=== PATIENT | male | born 1960 | race Caucasian/White ===

== ENCOUNTER 2016-08-13 21:16 | Emergency (ER) | payer MEDICARE, MEDICAID, OTHER ==
[~2016-08-13 21:16] MED LIST: /ADVA50050 IN; /ATOR40TA PO; /CIPR75TA OR; /OMEP10CA; /PANT40TA; /SALMDISK IN; ADVA115A INH; ADVAIR500 INHALATION; ALBU83IN IN; ALBU83IN INH; ALBUTEROL INHALATION; ALCOHOL TOP; ALDACTON50 PO; ALLO10TA PO; ALTACE10 PO; ASPI325T PO; ASPI32ECTA PO; ATOR40TA PO; AVANDIA4 PO; AVOD0.5C OR; AVOD0.5C PO; BACTRIMDS PO; CALC0.5C PO; CALC1CAP31 PO; CAPOTEN PO; CARV12.5 PO; CARV25TA OR; CARV6.25 PO; CINA30TA PO; CIPR500T19 OR; COLA100C PO; COMBIVENT PO; DEPAKOT500 PO; DEXI60CA PO; DOCU100C PO; DYNACIRC PO; ELID1CRE10 TOP; FEBU40TA PO; FERR325T PO; FERR325T3 PO; FLOM5CAP PO; FURO40TA2 OR; FURO80TA2 OR; GLUC1000 PO; GLUC1KIT INJ; GLUC5TAB PO; GLUCOP1000 PO; GLUCULTRA TOPICAL; HEPA100PFS INJ; HUMA100I5 SC; HUMA50IN4 SC; HUMALOG SQ; HYDR-3565 PO; HYDR25TA6; Hydrocodone PO; INSUHUMDS SC; IPRA2IN INH; IPRASOL4 INH; IRON28TA OR; ISOS30BRAN; Januvia PO; KEFLEX250 PO; KEPP250T5 PO; KLONOPIN PO; LACHYDRIN TOP; LANCMIS; LANTINJ4 SC; LASIX20 PO; LASIX40 PO; LIPITOR40 PO; LOPR100T; LOPRESS100 PO; LOPRESS50 PO; LORTAB10 PO; LOTRISCREA TOPICALLY; LYRI100C10 PO; MAGN400T5 PO; MAGN500T2 OR; METFORM500 PO; METO25TA PO; MULTIVIT PO; NICO21DI4; NITR0.4S SL; NITR4TASL SL; NITROSTAT4 SL; NORC10TA2 PO; NORV5TAB; OMEP20TA7 OR; OXYB5TA PO; OXYB5TAB PO; PLAV75TA2; PLAVIX75 PO; PLENDIL10 PO; POTA99TA OR; PREDNISO20 PO; PREDTAP PO; PRILOSEC20 PO; PRIN20TA3; PROA1AER INH; PULM0.5S INH; SALI0.9I2 IV; SOMA350 PO; SOMA350T PO; SPIR25TA2 PO; SYR.5; TORS100T12 PO; TORS20TA2 PO; TOUJ1.2I SC; TRIAMCIN TOPICAL; TYLE1TAB5 PO; ULOR80TA PO; VENTAER IN; VICODIN10 PO; VITMTA PO; Victoza SC; ZOCOR40 PO; ZOCOR80 PO; ZOFR20TA PO; ZOFR4TAB3 PO; ZOSY2INJ2 IV; [UNRECOGNIZED DRUG - CODE] PO; [UNRECOGNIZED DRUG - CODE] PO; [UNRECOGNIZED DRUG - CODE] PO; [UNRECOGNIZED DRUG - OTHER]; [UNRECOGNIZED DRUG - OTHER]; [UNRECOGNIZED DRUG - OTHER] SQ; mycostatin powder TOP
[2016-08-13 22:01] LABS: CALCIUM LEVEL 8.4 MG/DL (8.5-10.1); CREATININE FOR GFR 2.94 MG/DL (0.70-1.30); GLOMERULAR FILTRATION RATE 23.5 (>56); MEAN CORPUSCULAR HEMOGLOBIN 31.8 pg (27.0-33.0); MEAN CORPUSCULAR HGB CONC 33.1 g/dl (32.0-36.5); MEAN CORPUSCULAR VOLUME 96.2 fl (80.0-96.0); POTASSIUM SERUM 4.2 MEQ/L (3.5-5.1); WHITE BLOOD COUNT 5.4 K/mm3 (4.0-10.0)
--- NOTE | 2016-08-13 23:50 | REPUSA ---
CLINICAL HISTORY: Seizure TECHNIQUE: Head CT without contrast COMPARISON: November 29, 2015. Brain: No intracranial hemorrhage, hydrocephalus, acute parenchymal edema or evident mass. Calvarium: Unremarkable. Sinuses (partially visualized): Clear. Orbits: Left phthisis bulbi. IMPRESSION: No acute intracranial findings.
--- NOTE | 2016-08-14 00:10 | EDDOCDS ---
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 Pt. does not know why he was in the sleep lab and is unable to provide a medical history at this time. Adult Sepsis Screening: Patient has new or worsening altered mentation (1 point). Patient's respiratory rate is less than 22. Systolic blood pressure is greater than 100. Patient has a qSOFA score of 1- Negative Sepsis Screen. Suicide/Homicide risk assessment- Unable to assess, the patient has an altered level of consciousness. 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 Transition of care: patient was received from Sleep Lab at [facility]. 21:21 Acuity: YOHANA Level 3 lf1 21:21 Method Of Arrival: Wheelchair lf1 Triage Assessment: 21:45 General: Appears obese, uncomfortable, Behavior is drowsy. Pain: Location: right leg lf1 and left leg Pain currently is 6 out of 10 on a pain scale. HIV screening NA for this visit Offered previously. Neurological: Level of Consciousness is awake, confused, Reports headache. Respiratory: Respiratory effort is even, unlabored, Breath sounds are diminished Reports shortness of breath. GI: Abdomen is obese. Derm: Rash noted that is red, LE swelling and discoloration, BL UE with multiple areas of red ring-like rashes. Historical: - Allergies: butran patch (Rash); Toradol (hallucinations); - Home Meds: 1. aspirin 81 mg oral tab (Last dose: Unknown) 2. metformin 1,000 mg Oral tab 1 tab 2 times per day (Last dose: Unknown) 3. metoprolol tartrate 150 mg 1.5 tabs Oral tab 2 times per day (Last dose: Unknown) 4. atorvastatin 40 mg oral tab 1 tab once daily (Last dose: Unknown) 5. clopidogrel 75 mg oral tab 1 tab once daily (Last dose: Unknown) 6. pregabalin 150 mg oral cap 2 times per day (Last dose: Unknown) 7. lisinopril 20 mg Oral tab twice a day (Last dose: Unknown) 8. Protonix 40 mg Oral TbEC 1 tab once daily (Last dose: Unknown) 9. Lasix 20 mg Oral tab 1 tab once daily (Last dose: Unknown) 10. Novolog 100 unit/mL Sub-Q soln 85 units am / 85 units pm 11. multivitamin Oral tab 1 tab daily (Last dose: Unknown) 12. Avodart 0.5 mg oral cap 1 cap once daily (Last dose: Unknown) 13. torsemide 20 mg oral tab 2 tabs bid (Last dose: Unknown) 14. magnesium oxide 400 mg Oral tab 400 mg three times a day 15. ferrous sulfate 325 mg (65 mg iron) Oral tab twice a day (Last dose: Unknown) 16. spironolactone 25 mg Oral tab 1 tab 2 times per day (Last dose: Unknown) 17. docusate sodium 100 mg Oral cap as needed (Last dose: Unknown) 18. Nitrostat 0.4 mg SL subl as needed (Last dose: Unknown) 19. calcitriol 0.25 mcg oral cap 2 caps once daily 20. Flomax 0.4 mg Oral cp24 1 cap once daily (Last dose: Unknown) 21. Humalog Pen 180 units subq 4 times a day Sub-Q Unknown before meals sliding scale. 22. Dexilant 60 mg oral CpDB 1 cap once daily (Last dose: Unknown) 23. Lipitor 40 mg Oral tab 1 tab once daily 24. proair HFA 2 puffs every 4 hours as needed for SOB 25. carvedilol 6.25 mg oral tab 1 tab 2 times per day (Last dose: Unknown) 26. oxybutynin chloride 15 mg Oral tab 1 tab daily (Last dose: Unknown) 27. hydrocodone-acetaminophen 10-325 mg Oral tab 1 tab every 4-6 hours 28. pregabalin 100 mg Oral cap 1 cap 2 times per day (Last dose: Unknown) 29. Uloric 40 mg oral tab 1 tab once daily 30. Sensipar 30 mg oral tab 1 tab three times per week [place], wed, monday 31. potassium chloride 10 mEq Oral cpER 1 cap once daily 32. triamcinalone topical - PMHx: CHF; COPD; Diabetic Neuropathy; Glaucoma; Gout; Hypertension; kidney diseasestage 4; [place]; MRSA; secondary hyperparathyroidism of renal origin; Stroke; Pseudoseizures; Sleep Apnea w/o CPAP; - PSHx: inguinal hernia repair; Stents, Coronary; defibrillator; quadruple bypass; titanium plates in neck; umbilical hernia repair; - The history from nurses notes was reviewed: and elements of the historical information I have obtained differs from that reported to nursing. - Social history: Smoking status: Patient states former smoker of tobacco. Preferred Language: Dominican. - : The pt / caregiver states he / she is on anticoagulants: Plavix. Home medication list is obtained from [employer] import data, the facility OCT. - Hospitalizations: : No recent hospitalization is reported. - Exposure Risk Screening:: None identified. - Immunization history:: All immunizations up-to-date. - Family history: Not pertinent. - Social history:: the patient is a former smoker, the patient does not drink alcohol. Screenin:30 Screening information is obtained from family members. Fall risk: At risk due to lf1 immobility, The following interventions are performed due to a positive Fall Risk Screen: Fall Risk is added to Special Handling on the patient Summary Screen. A Fall Risk Bracelet was applied to the patient. Side Rails are placed in the up position. A Call Park is given with instruction to call for help when getting out of bed. Fall Alert bracelet is placed on the patient. Assistance ADL's: Requires assistance with meal preparation, this assistance is provided by family members, bathing, assistance is provided by family members, dressing, assistance is provided by family members, toileting, assistance is provided by family members, Pt also goes to adult daycare. Abuse/DV Screen: The patient / caregiver reports he/she is: not in a situation that causes fear, pain or injury. Nutritional screening: No deficits noted. Advance Directives: Currently, there is a health care proxy, Odilia Nick [phone]. There is an active DNR order but there is no copy available at this time. home support is adequate. Assessment: 22:30 Adult Sepsis Screening: Patient has new or worsening altered mentation (1 point). lf1 Patient's respiratory rate is less than 22. Systolic blood pressure is greater than 100. Patient has a qSOFA score of 1- Negative Sepsis Screen. General: Appears obese, uncomfortable, Behavior is anxious, restless. Pain: Location: right leg and left leg Pain currently is 10 out of 10 on a pain scale. Quality of pain is described as sharp, shooting, Pain began chronic. Neurological: Level of Consciousness is awake, alert, Oriented to person, place, time. EENT: No deficits noted. Cardiovascular: Chest pain is denied. Respiratory: Respiratory effort is even, unlabored. GI: Abdomen is obese. Derm: Rash noted that is red, on right arm and left arm. 23:10 General: Appears in no apparent distress. Pain: Location: right leg and left leg Pain lf1 currently is 10 out of 10 on a pain scale. Neurological: Level of Consciousness is awake, alert. Respiratory: Respiratory effort is even, unlabored. GI: Abdomen is obese. 08/14 00:06 General: Appears in no apparent distress, comfortable, obese, Behavior is cooperative. lf1 Pain: Location: left leg and right leg Pain currently is 10 out of 10 on a pain scale. Pain began chronic. Neurological: Level of Consciousness is awake, alert, Oriented to person, place, time. Cardiovascular: Chest pain is denied. Respiratory: Respiratory effort is even, unlabored. : No deficits noted. Derm: Rash noted that is red, on right arm and left arm. Vital Signs: 08/13 21:20 BP 133 / 74 (auto/); lf1 21:21 Pulse 81 MON; lf1 21:35 BP 133 / 74; Pulse 76; Resp 18; Temp 97.9(O); Pulse Ox 96% on R/A; Pain 0/10; lf1 21:36 Weight 150.14 kg; Height 5 ft. 10 in. (177.80 cm); cp1 21:38 BP 121 / 68 (auto/); lf1 21:38 Pulse 81 MON; Pulse Ox 90% ; lf1 21:45 BP 128 / 65 (auto/); lf1 21:46 Pulse 77 MON; Pulse Ox 96% ; lf1 22:00 BP 125 / 62 (auto/); lf1 22:01 Pulse 75 MON; Pulse Ox 96% ; lf1 22:15 BP 117 / 59 (auto/); lf1 22:16 Pulse 77 MON; Pulse Ox 96% ; lf1 22:30 BP 124 / 63 (auto/); lf1 22:30 Pulse 84 MON; Resp 20; Pulse Ox 95% ; Pain 10/10; lf1 22:48 BP 136 / 88 (auto/); lf1 22:49 Pulse 79 MON; lf1 23:03 BP 113 / 56 (auto/); lf1 23:03 Pulse 81 MON; lf1 23:18 BP 127 / 81 (auto/); lf1 23:18 Pulse 68 MON; lf1 23:33 BP 110 / 57 (auto/); lf1 23:33 Pulse 81 MON; lf1 23:48 BP 108 / 71 (auto/); lf1 23:49 Pulse 82 MON; lf1 23:57 BP 118 / 62 (auto/); lf1 23:58 Pulse 82 MON; Resp 20; Temp 97.1(O); lf1 21:36 Body Mass Index 47.49 (150.14 kg, 177.80 cm) cp1 Vitals: 21:35 Log In Time: August 13, 2016 at 21:25. lf1 ED Course: 21:17 Patient visited by Kim Loredo, Track Repair Worker. ml3 21:17 Jp Braun is Private Physician. ml3 21:17 Patient moved to Waiting ml3 21:18 RADHA PASCUAL is Private Physician. ml3 21:18 Patient moved to 1 ml3 21:24 Triage Initiated lf1 21:26 Prince Meraz MD is Attending Physician. pc 21:36 Patient visited by Rocio Pineda LPN. cp1 21:36 Inserted saline lock: 20 gauge in right hand and blood collected. The patient tolerated cp1 the procedure well. 21:37 Lexis Pina,RN is Primary Nurse. lf1 21:44 Patient visited by Prince Meraz MD. pc 21:49 Patient visited by Lexis Pina,JASMYNE. lf1 22:02 Patient visited by Raleigh Burgess PCA. kb5 22:11 Notified attending ED physician of Critical lab value. Dr Meraz notified of glucose of ko2 442. 22:30 The patient / caregiver is instructed regarding the plan of care and ED course. Seizure lf1 precautions initiated. 22:34 Patient visited by Lexis Pina,JASMYNE. lf1 22:[address] cp1 23:36 Patient moved to Aug 23:39 Patient visited by Prince Meraz MD. pc 23:50 [facility] is Referral Physician. pc 23:50 Murray Brown is Referral Physician. pc 23:58 Discontinued IV lock intact, bleeding controlled, pressure dressing applied, No lf1 redness/swelling at site. No procedures done that require assistance. 08/14 00:04 Patient visited by Lexis Pina RN. lf1 Order Results: Lab Order: CBC; SPEC'M 08/13/16 21:34 Test: WHITE BLOOD COUNT; Value: 5.4; Range: 4.0-10.0; Units: K/mm3; Status: F Test: RED BLOOD COUNT; Value: 4.46; Range: 4.30-6.10; Units: M/mm3; Status: F Test: HEMOGLOBIN; Value: 14.2; Range: 14.0-18.0; Units: g/dl; Status: F Test: HEMATOCRIT; Value: 42.9; Range: 42.0-52.0; Units: %; Status: F Test: MEAN CORPUSCULAR VOLUME; Value: 96.2; Range: 80.0-96.0; Abnormal: Above high normal; Units: fl; Status: F Test: MEAN CORPUSCULAR HEMOGLOBIN; Value: 31.8; Range: 27.0-33.0; Units: pg; Status: F Test: MEAN CORPUSCULAR HGB CONC; Value: 33.1; Range: 32.0-36.5; Units: g/dl; Status: F Test: RED CELL DISTRIBUTION WIDTH; Value: 15.0; Range: 11.5-14.5; Abnormal: Above high normal; Units: %; Status: F Test: PLATELET COUNT, AUTOMATED; Value: 74; Range: 150-450; Abnormal: Below low normal; Units: k/mm3; Status: F Lab Order: MED Profile; SPEC'M 08/13/16 21:34 Test: GLUCOSE, FASTING; Value: 442; Range: 70-105; Abnormal: Above upper panic limits; Units: MG/DL; Status: F Test: BLOOD UREA NITROGEN; Value: 27; Range: 7-18; Abnormal: Above high normal; Units: MG/DL; Status: F Test: CREATININE FOR GFR; Value: 2.94; Range: 0.70-1.30; Abnormal: Above high normal; Units: MG/DL; Status: F Test: GLOMERULAR FILTRATION RATE; Value: 23.5; Range: >56; Abnormal: Below low normal; Status: F Test: SODIUM LEVEL; Value: 134; Range: 136-145; Abnormal: Below low normal; Units: MEQ/L; Status: F Test: POTASSIUM SERUM; Value: 4.2; Range: 3.5-5.1; Units: MEQ/L; Status: F Test: CHLORIDE LEVEL; Value: 94; Range: 98-107; Abnormal: Below low normal; Units: MEQ/L; Status: F Test: CARBON DIOXIDE LEVEL; Value: 30; Range: 21-32; Units: MEQ/L; Status: F Test: ANION GAP; Value: 10; Range: 8-16; Units: MEQ/L; Status: F Test: CALCIUM LEVEL; Value: 8.4; Range: 8.5-10.1; Abnormal: Below low normal; Units: MG/DL; Status: F Test Note: ; Units are mL/min/1.73 m2 Chronic Kidney Disease Staging per NKF: Stage I & II GFR >=60 Normal to Mildly Decreased Stage III GFR 30-59 Moderately Decreased Stage IV GFR 15-29 Severely Decreased Stage V GFR <15 Very Little GFR Left ESRD GFR <15 on PEDIATRIC ACUTE CARE UNIT NURSE Lab Order: Fingerstick Blood Sugar; SPEC'M 08/13/16 21:42 Test: BEDSIDE GLUCOSE; Value: 442; Range: 70-105; Abnormal: Above high normal; Units: MG/DL; Status: F Outcome: 08/13 23:50 Discharge ordered by Provider. pc 08/14 00:06 Discharge Assessment: Patient awake, alert and oriented x 3. No cognitive and/or lf1 functional deficits noted. Patient verbalized understanding of disposition instructions. Patient awake and alert. Oriented to person, place and time. Patient verbalized understanding of disposition instructions. Patient Assisted to motorized wheelchair patient administered narcotics - no. The following High Risk Discharge criteria are identified: None. Discharged to home with family. Condition: improved. Discharge instructions given to patient, family, Instructed on discharge instructions, follow up and referral plans. no driving heavy equipment, Demonstrated understanding of instructions, Pt was receptive of discharge instructions/ teaching. CT Study completed. Property :Personal belongings accompany Pt. 00:09 Patient left the ED. lf1 Signatures: Prince Meraz MD MD pc Newman, Jalyn Scuhster RN RN dalton Loredo, [facility], Track Repair Worker Unit ml3 Raleigh Burgess, CREDIT RISK MANAGER CREDIT RISK MANAGER kb5 Lexis Pina RN RN lf1 Rocio Pineda,ECONOMICS TEACHER ECONOMICS TEACHER cp1 Paris Rosas RN RN ko2 MTDD
--- NOTE | 2016-08-14 00:10 | EDDOCDS ---
Physician Documentation [facility] Name: Michael Nick Age: 56 yrs Sex: Male : 1960 Arrival Date: 08/13/2016 Time: 21:16 Bed 1 Private MD: RADHA PASCUAL Disposition: 08/13 23:52 Critical Care: Critical care not applicable. pc Disposition: 08/13/16 23:50 Discharged to Home/Self Care. 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 - Condition is Stable. - Discharge Instructions: Chronic Pain, Nonepileptic Seizures. - Medication Reconciliation, Local Pharmacy Hours form. - Follow up: [facility]; When: Call to arrange an appointment; Reason: Continuance of care. Follow up: [facility] Brown; When: Call to arrange an appointment; Reason: Continuance of care. - Problem is an acute exacerbation. - Symptoms are resolved. HPI: 21:45 This 56 yrs old Male presents to ER via Wheelchair with complaints of Seizure.pc 21:45 The history is obtained from the patient. He was in the sleep lab, being hooked up for pc the study when his only functional eye, the left, rolled up into his head and he had shaking of his hands and legs. It lasted 1-2 minutes and then stopped. He was not post-ictal but claimed he did not know where he was or how he got here. He was then able to drive himself to the ED in his motorized wheelchair. He states he does not remember much of his day or how he came to the hospital, which would reflect retrograde amnesia, not in keeping with a post-ictal period. He was not incontinent, did not bite his tongue and has been asymptomatic since. He arrived to the ED laughing with staff. He has no complaints. His EMR reveals that he does not have any seizure history, but in fact, only pseudoseizures, one stopped by water being splashed in his face by his Neurologist. He has had multiple EEGs since 1998, all negative. Historical: - Allergies: butran patch (Rash); Toradol (hallucinations); - Home Meds: 1. aspirin 81 mg oral tab (Last dose: Unknown) 2. metformin 1,000 mg Oral tab 1 tab 2 times per day (Last dose: Unknown) 3. metoprolol tartrate 150 mg 1.5 tabs Oral tab 2 times per day (Last dose: Unknown) 4. atorvastatin 40 mg oral tab 1 tab once daily (Last dose: Unknown) 5. clopidogrel 75 mg oral tab 1 tab once daily (Last dose: Unknown) 6. pregabalin 150 mg oral cap 2 times per day (Last dose: Unknown) 7. lisinopril 20 mg Oral tab twice a day (Last dose: Unknown) 8. Protonix 40 mg Oral TbEC 1 tab once daily (Last dose: Unknown) 9. Lasix 20 mg Oral tab 1 tab once daily (Last dose: Unknown) 10. Novolog 100 unit/mL Sub-Q soln 85 units am / 85 units pm 11. multivitamin Oral tab 1 tab daily (Last dose: Unknown) 12. Avodart 0.5 mg oral cap 1 cap once daily (Last dose: Unknown) 13. torsemide 20 mg oral tab 2 tabs bid (Last dose: Unknown) 14. magnesium oxide 400 mg Oral tab 400 mg three times a day 15. ferrous sulfate 325 mg (65 mg iron) Oral tab twice a day (Last dose: Unknown) 16. spironolactone 25 mg Oral tab 1 tab 2 times per day (Last dose: Unknown) 17. docusate sodium 100 mg Oral cap as needed (Last dose: Unknown) 18. Nitrostat 0.4 mg SL subl as needed (Last dose: Unknown) 19. calcitriol 0.25 mcg oral cap 2 caps once daily 20. Flomax 0.4 mg Oral cp24 1 cap once daily (Last dose: Unknown) 21. Humalog Pen 180 units subq 4 times a day Sub-Q Unknown before meals sliding scale. 22. Dexilant 60 mg oral CpDB 1 cap once daily (Last dose: Unknown) 23. Lipitor 40 mg Oral tab 1 tab once daily 24. proair HFA 2 puffs every 4 hours as needed for SOB 25. carvedilol 6.25 mg oral tab 1 tab 2 times per day (Last dose: Unknown) 26. oxybutynin chloride 15 mg Oral tab 1 tab daily (Last dose: Unknown) 27. hydrocodone-acetaminophen 10-325 mg Oral tab 1 tab every 4-6 hours 28. pregabalin 100 mg Oral cap 1 cap 2 times per day (Last dose: Unknown) 29. Uloric 40 mg oral tab 1 tab once daily 30. Sensipar 30 mg oral tab 1 tab three times per week [place], monday, sudhakar 31. potassium chloride 10 mEq Oral cpER 1 cap once daily 32. triamcinalone topical - PMHx: CHF; COPD; Diabetic Neuropathy; Glaucoma; Gout; Hypertension; kidney diseasestage 4; [place]; MRSA; secondary hyperparathyroidism of renal origin; Stroke; Pseudoseizures; Sleep Apnea w/o CPAP; - PSHx: inguinal hernia repair; Stents, Coronary; defibrillator; quadruple bypass; titanium plates in neck; umbilical hernia repair; - The history from nurses notes was reviewed: and elements of the historical information I have obtained differs from that reported to nursing. - Social history: Smoking status: Patient states former smoker of tobacco. Preferred Language: Burmese. - : The pt / caregiver states he / she is on anticoagulants: Plavix. Home medication list is obtained from [employer] import data, the facility OCT. - Hospitalizations: : No recent hospitalization is reported. - Exposure Risk Screening:: None identified. - Immunization history:: All immunizations up-to-date. - Family history: Not pertinent. - Social history:: the patient is a former smoker, the patient does not drink alcohol. ROS: 21:55 chronic ring worm, chronic leg weakness. pc 21:55 All systems are negative except as listed. Exam: 21:55 General Appearance: no acute distress, alert. pc 21:55 EENT: normal eye inspection, ears, nose and throat normal, pharynx normal, mucous membranes moist 21:55 Neck: The exam reveals no acute abnormalities. ROM is normal and painless. No nuchal rigidity is noted.. 21:55 Respiratory: no respiratory distress, normal breath sounds. 21:55 CVS: regular pulse rate, regular rhythm, normal S1 and S2, no murmurs, strong peripheral pulses. 21:55 Abdomen: soft, non-tender, no organomegaly, normal bowel sounds. 21:55 Back: normal inspection. 21:55 Skin: skin color is normal, warm, dry, a rash and can be described as multiple ring shaped lesions diffusely, consistent with tinae. 21:55 Extremities: are non-tender. 21:55 Neuro: oriented x 3, cranial nerves normal as tested, no motor deficits, no sensory deficits. 21:55 Psych: normal mood. Vital Signs: 21:20 BP 133 / 74 (auto/); lf1 21:21 Pulse 81 MON; lf1 21:35 BP 133 / 74; Pulse 76; Resp 18; Temp 97.9(O); Pulse Ox 96% on R/A; Pain 0/10; lf1 21:36 Weight 150.14 kg / 331 lbs; Height 5 ft. 10 in. (177.80 cm); cp1 21:38 BP 121 / 68 (auto/); lf1 21:38 Pulse 81 MON; Pulse Ox 90% ; lf1 21:45 BP 128 / 65 (auto/); lf1 21:46 Pulse 77 MON; Pulse Ox 96% ; lf1 22:00 BP 125 / 62 (auto/); lf1 22:01 Pulse 75 MON; Pulse Ox 96% ; lf1 22:15 BP 117 / 59 (auto/); lf1 22:16 Pulse 77 MON; Pulse Ox 96% ; lf1 22:30 BP 124 / 63 (auto/); lf1 22:30 Pulse 84 MON; Resp 20; Pulse Ox 95% ; Pain 10/10; lf1 22:48 BP 136 / 88 (auto/); lf1 22:49 Pulse 79 MON; lf1 23:03 BP 113 / 56 (auto/); lf1 23:03 Pulse 81 MON; lf1 23:18 BP 127 / 81 (auto/); lf1 23:18 Pulse 68 MON; lf1 23:33 BP 110 / 57 (auto/); lf1 23:33 Pulse 81 MON; lf1 23:48 BP 108 / 71 (auto/); lf1 23:49 Pulse 82 MON; lf1 23:57 BP 118 / 62 (auto/); lf1 23:58 Pulse 82 MON; Resp 20; Temp 97.1(O); lf1 21:36 Body Mass Index 47.49 (150.14 kg, 177.80 cm) cp1 MDM: 21:47 CT Head Without Contrast Ordered. EDMS 21:47 CBC Ordered. EDMS 21:47 MED Profile Ordered. EDMS 21:55 Differential Diagnosis: reported seizure activity without a post-ictal period and known pc pseudoseizures. Plan: imaging, labs. 22:36 CBC Reviewed. pc 22:36 MED Profile Reviewed. pc 22:36 Fingerstick Blood Sugar Reviewed. pc 23:52 Data reviewed: old medical records, vital signs, nurses notes, lab test results, all radiology studies and available results. Test interpretation: LAB - all labs as ordered have been reviewed, interpreted and considered in the overall management of the clinical presentation; interpreted by Radiologist and personally reviewed, Head CT; no acute disease. The patient has been re-examined and re-evaluated. The clinical presentation did not require any ED treatment or interventions. Disposition: The historical points, examination findings, and any diagnostic results supporting the provided diagnosis, were discussed with the patient or legal guardian. The need for outpatient follow up with the provider listed on their discharge instructions was discussed. They were encouraged to return to [facility], or the nearest ED, if symptoms worsen/persist, or for any other questions/concerns. Signatures: Dispatcher [employer] Prince Mcmillan MD MD pc Ford, LisaRN RN lf1 HYUN
--- NOTE | 2016-08-16 12:05 | EDDOCDS ---
Physician Documentation [facility] Name: Michael Nick Age: 56 yrs Sex: Male : 1960 Arrival Date: 08/13/2016 Time: 21:16 Bed 1 Private MD: RADHA PASCUAL Disposition: 08/13 23:52 Critical Care: Critical care not applicable. pc Disposition: 08/13/16 23:50 Discharged to Home/Self Care. 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 - Condition is Stable. - Discharge Instructions: Chronic Pain, Nonepileptic Seizures. - Medication Reconciliation, Local Pharmacy Hours form. - Follow up: [facility]; When: Call to arrange an appointment; Reason: Continuance of care. Follow up: [facility]; When: Call to arrange an appointment; Reason: Continuance of care. - Problem is an acute exacerbation. - Symptoms are resolved. HPI: 21:45 This 56 yrs old Male presents to ER via Wheelchair with complaints of Seizure.pc 21:45 The history is obtained from the patient. He was in the sleep lab, being hooked up for pc the study when his only functional eye, the left, rolled up into his head and he had shaking of his hands and legs. It lasted 1-2 minutes and then stopped. He was not post-ictal but claimed he did not know where he was or how he got here. He was then able to drive himself to the ED in his motorized wheelchair. He states he does not remember much of his day or how he came to the hospital, which would reflect retrograde amnesia, not in keeping with a post-ictal period. He was not incontinent, did not bite his tongue and has been asymptomatic since. He arrived to the ED laughing with staff. He has no complaints. His EMR reveals that he does not have any seizure history, but in fact, only pseudoseizures, one stopped by water being splashed in his face by his Neurologist. He has had multiple EEGs since 1998, all negative. Historical: - Allergies: butran patch (Rash); Toradol (hallucinations); - Home Meds: 1. aspirin 81 mg oral tab (Last dose: Unknown) 2. metformin 1,000 mg Oral tab 1 tab 2 times per day (Last dose: Unknown) 3. metoprolol tartrate 150 mg 1.5 tabs Oral tab 2 times per day (Last dose: Unknown) 4. atorvastatin 40 mg oral tab 1 tab once daily (Last dose: Unknown) 5. clopidogrel 75 mg oral tab 1 tab once daily (Last dose: Unknown) 6. pregabalin 150 mg oral cap 2 times per day (Last dose: Unknown) 7. lisinopril 20 mg Oral tab twice a day (Last dose: Unknown) 8. Protonix 40 mg Oral TbEC 1 tab once daily (Last dose: Unknown) 9. Lasix 20 mg Oral tab 1 tab once daily (Last dose: Unknown) 10. Novolog 100 unit/mL Sub-Q soln 85 units am / 85 units pm 11. multivitamin Oral tab 1 tab daily (Last dose: Unknown) 12. Avodart 0.5 mg oral cap 1 cap once daily (Last dose: Unknown) 13. torsemide 20 mg oral tab 2 tabs bid (Last dose: Unknown) 14. magnesium oxide 400 mg Oral tab 400 mg three times a day 15. ferrous sulfate 325 mg (65 mg iron) Oral tab twice a day (Last dose: Unknown) 16. spironolactone 25 mg Oral tab 1 tab 2 times per day (Last dose: Unknown) 17. docusate sodium 100 mg Oral cap as needed (Last dose: Unknown) 18. Nitrostat 0.4 mg SL subl as needed (Last dose: Unknown) 19. calcitriol 0.25 mcg oral cap 2 caps once daily 20. Flomax 0.4 mg Oral cp24 1 cap once daily (Last dose: Unknown) 21. Humalog Pen 180 units subq 4 times a day Sub-Q Unknown before meals sliding scale. 22. Dexilant 60 mg oral CpDB 1 cap once daily (Last dose: Unknown) 23. Lipitor 40 mg Oral tab 1 tab once daily 24. proair HFA 2 puffs every 4 hours as needed for SOB 25. carvedilol 6.25 mg oral tab 1 tab 2 times per day (Last dose: Unknown) 26. oxybutynin chloride 15 mg Oral tab 1 tab daily (Last dose: Unknown) 27. hydrocodone-acetaminophen 10-325 mg Oral tab 1 tab every 4-6 hours 28. pregabalin 100 mg Oral cap 1 cap 2 times per day (Last dose: Unknown) 29. Uloric 40 mg oral tab 1 tab once daily 30. Sensipar 30 mg oral tab 1 tab three times per week moday, monday, sudhakar 31. potassium chloride 10 mEq Oral cpER 1 cap once daily 32. triamcinalone topical - PMHx: CHF; COPD; Diabetic Neuropathy; Glaucoma; Gout; Hypertension; kidney diseasestage 4; CT; MRSA; secondary hyperparathyroidism of renal origin; Stroke; Pseudoseizures; Sleep Apnea w/o CPAP; - PSHx: inguinal hernia repair; Stents, Coronary; defibrillator; quadruple bypass; titanium plates in neck; umbilical hernia repair; - The history from nurses notes was reviewed: and elements of the historical information I have obtained differs from that reported to nursing. - Social history: Smoking status: Patient states former smoker of tobacco. Preferred Language: Mongolian. - : The pt / caregiver states he / she is on anticoagulants: Plavix. Home medication list is obtained from [employer] import data, the facility OCT. - Hospitalizations: : No recent hospitalization is reported. - Exposure Risk Screening:: None identified. - Immunization history:: All immunizations up-to-date. - Family history: Not pertinent. - Social history:: the patient is a former smoker, the patient does not drink alcohol. ROS: 21:55 chronic ring worm, chronic leg weakness. pc 21:55 All systems are negative except as listed. Exam: 21:55 General Appearance: no acute distress, alert. pc 21:55 EENT: normal eye inspection, ears, nose and throat normal, pharynx normal, mucous membranes moist 21:55 Neck: The exam reveals no acute abnormalities. ROM is normal and painless. No nuchal rigidity is noted.. 21:55 Respiratory: no respiratory distress, normal breath sounds. 21:55 CVS: regular pulse rate, regular rhythm, normal S1 and S2, no murmurs, strong peripheral pulses. 21:55 Abdomen: soft, non-tender, no organomegaly, normal bowel sounds. 21:55 Back: normal inspection. 21:55 Skin: skin color is normal, warm, dry, a rash and can be described as multiple ring shaped lesions diffusely, consistent with tinae. 21:55 Extremities: are non-tender. 21:55 Neuro: oriented x 3, cranial nerves normal as tested, no motor deficits, no sensory deficits. 21:55 Psych: normal mood. Vital Signs: 21:20 BP 133 / 74 (auto/); lf1 21:21 Pulse 81 MON; lf1 21:35 BP 133 / 74; Pulse 76; Resp 18; Temp 97.9(O); Pulse Ox 96% on R/A; Pain 0/10; lf1 21:36 Weight 150.14 kg / 331 lbs; Height 5 ft. 10 in. (177.80 cm); cp1 21:38 BP 121 / 68 (auto/); lf1 21:38 Pulse 81 MON; Pulse Ox 90% ; lf1 21:45 BP 128 / 65 (auto/); lf1 21:46 Pulse 77 MON; Pulse Ox 96% ; lf1 22:00 BP 125 / 62 (auto/); lf1 22:01 Pulse 75 MON; Pulse Ox 96% ; lf1 22:15 BP 117 / 59 (auto/); lf1 22:16 Pulse 77 MON; Pulse Ox 96% ; lf1 22:30 BP 124 / 63 (auto/); lf1 22:30 Pulse 84 MON; Resp 20; Pulse Ox 95% ; Pain 10/10; lf1 22:48 BP 136 / 88 (auto/); lf1 22:49 Pulse 79 MON; lf1 23:03 BP 113 / 56 (auto/); lf1 23:03 Pulse 81 MON; lf1 23:18 BP 127 / 81 (auto/); lf1 23:18 Pulse 68 MON; lf1 23:33 BP 110 / 57 (auto/); lf1 23:33 Pulse 81 MON; lf1 23:48 BP 108 / 71 (auto/); lf1 23:49 Pulse 82 MON; lf1 23:57 BP 118 / 62 (auto/); lf1 23:58 Pulse 82 MON; Resp 20; Temp 97.1(O); lf1 21:36 Body Mass Index 47.49 (150.14 kg, 177.80 cm) cp1 MDM: 21:47 CT Head Without Contrast Ordered. EDMS 21:47 CBC Ordered. EDMS 21:47 MED Profile Ordered. EDMS 21:55 Differential Diagnosis: reported seizure activity without a post-ictal period and known pc pseudoseizures. Plan: imaging, labs. 22:36 CBC Reviewed. pc 22:36 MED Profile Reviewed. pc 22:36 Fingerstick Blood Sugar Reviewed. pc 23:52 Data reviewed: old medical records, vital signs, nurses notes, lab test results, all radiology studies and available results. Test interpretation: LAB - all labs as ordered have been reviewed, interpreted and considered in the overall management of the clinical presentation; interpreted by Radiologist and personally reviewed, Head CT; no acute disease. The patient has been re-examined and re-evaluated. The clinical presentation did not require any ED treatment or interventions. Disposition: The historical points, examination findings, and any diagnostic results supporting the provided diagnosis, were discussed with the patient or legal guardian. The need for outpatient follow up with the provider listed on their discharge instructions was discussed. They were encouraged to return to [facility], or the nearest ED, if symptoms worsen/persist, or for any other questions/concerns. 08/14 00:12 Financial registration complete. hs2 02:34 [facility] Payment Agreement was scanned into [employer] and attached to record. alessia Signatures: Dispatcher [employer] EDMS Prince Meraz MD MD pc Ford, Lisa,RN RN lf1 Eugenia Cleary Hillary, Reg Reg hs2 The chart was reviewed and I authenticate all verbal orders and agree with the evaluation and treatment provided.Attachments: 02:34 [facility] Payment Agreement alessia Chart Complete MTDD
--- NOTE | 2016-08-16 12:05 | EDDOCDS ---
Physician Documentation [facility] Name: Michael Nick Age: 56 yrs Sex: Male : 1960 Arrival Date: 08/13/2016 Time: 21:16 Bed 1 Private MD: RADHA PASCUAL Disposition: 08/13 23:52 Critical Care: Critical care not applicable. pc Disposition: 08/13/16 23:50 Discharged to Home/Self Care. 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 - Condition is Stable. - Discharge Instructions: Chronic Pain, Nonepileptic Seizures. - Medication Reconciliation, Local Pharmacy Hours form. - Follow up: [facility]; When: Call to arrange an appointment; Reason: Continuance of care. Follow up: [facility]; When: Call to arrange an appointment; Reason: Continuance of care. - Problem is an acute exacerbation. - Symptoms are resolved. HPI: 21:45 This 56 yrs old Male presents to ER via Wheelchair with complaints of Seizure.pc 21:45 The history is obtained from the patient. He was in the sleep lab, being hooked up for pc the study when his only functional eye, the left, rolled up into his head and he had shaking of his hands and legs. It lasted 1-2 minutes and then stopped. He was not post-ictal but claimed he did not know where he was or how he got here. He was then able to drive himself to the ED in his motorized wheelchair. He states he does not remember much of his day or how he came to the hospital, which would reflect retrograde amnesia, not in keeping with a post-ictal period. He was not incontinent, did not bite his tongue and has been asymptomatic since. He arrived to the ED laughing with staff. He has no complaints. His EMR reveals that he does not have any seizure history, but in fact, only pseudoseizures, one stopped by water being splashed in his face by his Neurologist. He has had multiple EEGs since 1998, all negative. Historical: - Allergies: butran patch (Rash); Toradol (hallucinations); - Home Meds: 1. aspirin 81 mg oral tab (Last dose: Unknown) 2. metformin 1,000 mg Oral tab 1 tab 2 times per day (Last dose: Unknown) 3. metoprolol tartrate 150 mg 1.5 tabs Oral tab 2 times per day (Last dose: Unknown) 4. atorvastatin 40 mg oral tab 1 tab once daily (Last dose: Unknown) 5. clopidogrel 75 mg oral tab 1 tab once daily (Last dose: Unknown) 6. pregabalin 150 mg oral cap 2 times per day (Last dose: Unknown) 7. lisinopril 20 mg Oral tab twice a day (Last dose: Unknown) 8. Protonix 40 mg Oral TbEC 1 tab once daily (Last dose: Unknown) 9. Lasix 20 mg Oral tab 1 tab once daily (Last dose: Unknown) 10. Novolog 100 unit/mL Sub-Q soln 85 units am / 85 units pm 11. multivitamin Oral tab 1 tab daily (Last dose: Unknown) 12. Avodart 0.5 mg oral cap 1 cap once daily (Last dose: Unknown) 13. torsemide 20 mg oral tab 2 tabs bid (Last dose: Unknown) 14. magnesium oxide 400 mg Oral tab 400 mg three times a day 15. ferrous sulfate 325 mg (65 mg iron) Oral tab twice a day (Last dose: Unknown) 16. spironolactone 25 mg Oral tab 1 tab 2 times per day (Last dose: Unknown) 17. docusate sodium 100 mg Oral cap as needed (Last dose: Unknown) 18. Nitrostat 0.4 mg SL subl as needed (Last dose: Unknown) 19. calcitriol 0.25 mcg oral cap 2 caps once daily 20. Flomax 0.4 mg Oral cp24 1 cap once daily (Last dose: Unknown) 21. Humalog Pen 180 units subq 4 times a day Sub-Q Unknown before meals sliding scale. 22. Dexilant 60 mg oral CpDB 1 cap once daily (Last dose: Unknown) 23. Lipitor 40 mg Oral tab 1 tab once daily 24. proair HFA 2 puffs every 4 hours as needed for SOB 25. carvedilol 6.25 mg oral tab 1 tab 2 times per day (Last dose: Unknown) 26. oxybutynin chloride 15 mg Oral tab 1 tab daily (Last dose: Unknown) 27. hydrocodone-acetaminophen 10-325 mg Oral tab 1 tab every 4-6 hours 28. pregabalin 100 mg Oral cap 1 cap 2 times per day (Last dose: Unknown) 29. Uloric 40 mg oral tab 1 tab once daily 30. Sensipar 30 mg oral tab 1 tab three times per week moday, monday, sudhakar 31. potassium chloride 10 mEq Oral cpER 1 cap once daily 32. triamcinalone topical - PMHx: CHF; COPD; Diabetic Neuropathy; Glaucoma; Gout; Hypertension; kidney diseasestage 4; RI; MRSA; secondary hyperparathyroidism of renal origin; Stroke; Pseudoseizures; Sleep Apnea w/o CPAP; - PSHx: inguinal hernia repair; Stents, Coronary; defibrillator; quadruple bypass; titanium plates in neck; umbilical hernia repair; - The history from nurses notes was reviewed: and elements of the historical information I have obtained differs from that reported to nursing. - Social history: Smoking status: Patient states former smoker of tobacco. Preferred Language: Sammarinese. - : The pt / caregiver states he / she is on anticoagulants: Plavix. Home medication list is obtained from [employer] import data, the facility OCT. - Hospitalizations: : No recent hospitalization is reported. - Exposure Risk Screening:: None identified. - Immunization history:: All immunizations up-to-date. - Family history: Not pertinent. - Social history:: the patient is a former smoker, the patient does not drink alcohol. ROS: 21:55 chronic ring worm, chronic leg weakness. pc 21:55 All systems are negative except as listed. Exam: 21:55 General Appearance: no acute distress, alert. pc 21:55 EENT: normal eye inspection, ears, nose and throat normal, pharynx normal, mucous membranes moist 21:55 Neck: The exam reveals no acute abnormalities. ROM is normal and painless. No nuchal rigidity is noted.. 21:55 Respiratory: no respiratory distress, normal breath sounds. 21:55 CVS: regular pulse rate, regular rhythm, normal S1 and S2, no murmurs, strong peripheral pulses. 21:55 Abdomen: soft, non-tender, no organomegaly, normal bowel sounds. 21:55 Back: normal inspection. 21:55 Skin: skin color is normal, warm, dry, a rash and can be described as multiple ring shaped lesions diffusely, consistent with tinae. 21:55 Extremities: are non-tender. 21:55 Neuro: oriented x 3, cranial nerves normal as tested, no motor deficits, no sensory deficits. 21:55 Psych: normal mood. Vital Signs: 21:20 BP 133 / 74 (auto/); lf1 21:21 Pulse 81 MON; lf1 21:35 BP 133 / 74; Pulse 76; Resp 18; Temp 97.9(O); Pulse Ox 96% on R/A; Pain 0/10; lf1 21:36 Weight 150.14 kg / 331 lbs; Height 5 ft. 10 in. (177.80 cm); cp1 21:38 BP 121 / 68 (auto/); lf1 21:38 Pulse 81 MON; Pulse Ox 90% ; lf1 21:45 BP 128 / 65 (auto/); lf1 21:46 Pulse 77 MON; Pulse Ox 96% ; lf1 22:00 BP 125 / 62 (auto/); lf1 22:01 Pulse 75 MON; Pulse Ox 96% ; lf1 22:15 BP 117 / 59 (auto/); lf1 22:16 Pulse 77 MON; Pulse Ox 96% ; lf1 22:30 BP 124 / 63 (auto/); lf1 22:30 Pulse 84 MON; Resp 20; Pulse Ox 95% ; Pain 10/10; lf1 22:48 BP 136 / 88 (auto/); lf1 22:49 Pulse 79 MON; lf1 23:03 BP 113 / 56 (auto/); lf1 23:03 Pulse 81 MON; lf1 23:18 BP 127 / 81 (auto/); lf1 23:18 Pulse 68 MON; lf1 23:33 BP 110 / 57 (auto/); lf1 23:33 Pulse 81 MON; lf1 23:48 BP 108 / 71 (auto/); lf1 23:49 Pulse 82 MON; lf1 23:57 BP 118 / 62 (auto/); lf1 23:58 Pulse 82 MON; Resp 20; Temp 97.1(O); lf1 21:36 Body Mass Index 47.49 (150.14 kg, 177.80 cm) cp1 MDM: 21:47 CT Head Without Contrast Ordered. EDMS 21:47 CBC Ordered. EDMS 21:47 MED Profile Ordered. EDMS 21:55 Differential Diagnosis: reported seizure activity without a post-ictal period and known pc pseudoseizures. Plan: imaging, labs. 22:36 CBC Reviewed. pc 22:36 MED Profile Reviewed. pc 22:36 Fingerstick Blood Sugar Reviewed. pc 23:52 Data reviewed: old medical records, vital signs, nurses notes, lab test results, all radiology studies and available results. Test interpretation: LAB - all labs as ordered have been reviewed, interpreted and considered in the overall management of the clinical presentation; interpreted by Radiologist and personally reviewed, Head CT; no acute disease. The patient has been re-examined and re-evaluated. The clinical presentation did not require any ED treatment or interventions. Disposition: The historical points, examination findings, and any diagnostic results supporting the provided diagnosis, were discussed with the patient or legal guardian. The need for outpatient follow up with the provider listed on their discharge instructions was discussed. They were encouraged to return to [facility], or the nearest ED, if symptoms worsen/persist, or for any other questions/concerns. 08/14 00:12 Financial registration complete. hs2 02:34 REPLACED BY [facility] Payment Agreement was scanned into [employer] and attached to record. alessia Signatures: Dispatcher [employer] EDMS Prince Meraz MD MD pc Ford, Lisa,RN RN lf1 Eugenia Cleary Hillary, Reg Reg hs2 The chart was reviewed and I authenticate all verbal orders and agree with the evaluation and treatment provided.Attachments: 02:34 REPLACED BY [facility] Payment Agreement alessia Chart Complete MTDD
--- NOTE | 2016-08-16 12:06 | EDDOCDS ---
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 Pt. does not know why he was in the sleep lab and is unable to provide a medical history at this time. Adult Sepsis Screening: Patient has new or worsening altered mentation (1 point). Patient's respiratory rate is less than 22. Systolic blood pressure is greater than 100. Patient has a qSOFA score of 1- Negative Sepsis Screen. Suicide/Homicide risk assessment- Unable to assess, the patient has an altered level of consciousness. Status: Unknown if rn social services or dependent. Transition of care: patient was received from Sleep Lab at [facility]. 21:21 Acuity: YOHANA Level 3 lf1 21:21 Method Of Arrival: Wheelchair lf1 Triage Assessment: 21:45 General: Appears obese, uncomfortable, Behavior is drowsy. Pain: Location: right leg lf1 and left leg Pain currently is 6 out of 10 on a pain scale. HIV screening NA for this visit Offered previously. Neurological: Level of Consciousness is awake, confused, Reports headache. Respiratory: Respiratory effort is even, unlabored, Breath sounds are diminished Reports shortness of breath. GI: Abdomen is obese. Derm: Rash noted that is red, LE swelling and discoloration, BL UE with multiple areas of red ring-like rashes. Historical: - Allergies: butran patch (Rash); Toradol (hallucinations); - Home Meds: 1. aspirin 81 mg oral tab (Last dose: Unknown) 2. metformin 1,000 mg Oral tab 1 tab 2 times per day (Last dose: Unknown) 3. metoprolol tartrate 150 mg 1.5 tabs Oral tab 2 times per day (Last dose: Unknown) 4. atorvastatin 40 mg oral tab 1 tab once daily (Last dose: Unknown) 5. clopidogrel 75 mg oral tab 1 tab once daily (Last dose: Unknown) 6. pregabalin 150 mg oral cap 2 times per day (Last dose: Unknown) 7. lisinopril 20 mg Oral tab twice a day (Last dose: Unknown) 8. Protonix 40 mg Oral TbEC 1 tab once daily (Last dose: Unknown) 9. Lasix 20 mg Oral tab 1 tab once daily (Last dose: Unknown) 10. Novolog 100 unit/mL Sub-Q soln 85 units am / 85 units pm 11. multivitamin Oral tab 1 tab daily (Last dose: Unknown) 12. Avodart 0.5 mg oral cap 1 cap once daily (Last dose: Unknown) 13. torsemide 20 mg oral tab 2 tabs bid (Last dose: Unknown) 14. magnesium oxide 400 mg Oral tab 400 mg three times a day 15. ferrous sulfate 325 mg (65 mg iron) Oral tab twice a day (Last dose: Unknown) 16. spironolactone 25 mg Oral tab 1 tab 2 times per day (Last dose: Unknown) 17. docusate sodium 100 mg Oral cap as needed (Last dose: Unknown) 18. Nitrostat 0.4 mg SL subl as needed (Last dose: Unknown) 19. calcitriol 0.25 mcg oral cap 2 caps once daily 20. Flomax 0.4 mg Oral cp24 1 cap once daily (Last dose: Unknown) 21. Humalog Pen 180 units subq 4 times a day Sub-Q Unknown before meals sliding scale. 22. Dexilant 60 mg oral CpDB 1 cap once daily (Last dose: Unknown) 23. Lipitor 40 mg Oral tab 1 tab once daily 24. proair HFA 2 puffs every 4 hours as needed for SOB 25. carvedilol 6.25 mg oral tab 1 tab 2 times per day (Last dose: Unknown) 26. oxybutynin chloride 15 mg Oral tab 1 tab daily (Last dose: Unknown) 27. hydrocodone-acetaminophen 10-325 mg Oral tab 1 tab every 4-6 hours 28. pregabalin 100 mg Oral cap 1 cap 2 times per day (Last dose: Unknown) 29. Uloric 40 mg oral tab 1 tab once daily 30. Sensipar 30 mg oral tab 1 tab three times per week [place], wed, monday 31. potassium chloride 10 mEq Oral cpER 1 cap once daily 32. triamcinalone topical - PMHx: CHF; COPD; Diabetic Neuropathy; Glaucoma; Gout; Hypertension; kidney diseasestage 4; [place]; MRSA; secondary hyperparathyroidism of renal origin; Stroke; Pseudoseizures; Sleep Apnea w/o CPAP; - PSHx: inguinal hernia repair; Stents, Coronary; defibrillator; quadruple bypass; titanium plates in neck; umbilical hernia repair; - The history from nurses notes was reviewed: and elements of the historical information I have obtained differs from that reported to nursing. - Social history: Smoking status: Patient states former smoker of tobacco. Preferred Language: Iraqi. - : The pt / caregiver states he / she is on anticoagulants: Plavix. Home medication list is obtained from [employer], the facility OCT. - Hospitalizations: : No recent hospitalization is reported. - Exposure Risk Screening:: None identified. - Immunization history:: All immunizations up-to-date. - Family history: Not pertinent. - Social history:: the patient is a former smoker, the patient does not drink alcohol. Screenin:30 Screening information is obtained from family members. Fall risk: At risk due to lf1 immobility, The following interventions are performed due to a positive Fall Risk Screen: Fall Risk is added to Special Handling on the patient Summary Screen. A Fall Risk Bracelet was applied to the patient. Side Rails are placed in the up position. A Call Park is given with instruction to call for help when getting out of bed. Fall Alert bracelet is placed on the patient. Assistance ADL's: Requires assistance with meal preparation, this assistance is provided by family members, bathing, assistance is provided by family members, dressing, assistance is provided by family members, toileting, assistance is provided by family members, Pt also goes to adult daycare. Abuse/DV Screen: The patient / caregiver reports he/she is: not in a situation that causes fear, pain or injury. Nutritional screening: No deficits noted. Advance Directives: Currently, there is a health care proxy, Odilia Nick [phone]. There is an active DNR order but there is no copy available at this time. home support is adequate. Assessment: 22:30 Adult Sepsis Screening: Patient has new or worsening altered mentation (1 point). lf1 Patient's respiratory rate is less than 22. Systolic blood pressure is greater than 100. Patient has a qSOFA score of 1- Negative Sepsis Screen. General: Appears obese, uncomfortable, Behavior is anxious, restless. Pain: Location: right leg and left leg Pain currently is 10 out of 10 on a pain scale. Quality of pain is described as sharp, shooting, Pain began chronic. Neurological: Level of Consciousness is awake, alert, Oriented to person, place, time. EENT: No deficits noted. Cardiovascular: Chest pain is denied. Respiratory: Respiratory effort is even, unlabored. GI: Abdomen is obese. Derm: Rash noted that is red, on right arm and left arm. 23:10 General: Appears in no apparent distress. Pain: Location: right leg and left leg Pain lf1 currently is 10 out of 10 on a pain scale. Neurological: Level of Consciousness is awake, alert. Respiratory: Respiratory effort is even, unlabored. GI: Abdomen is obese. 08/14 00:06 General: Appears in no apparent distress, comfortable, obese, Behavior is cooperative. lf1 Pain: Location: left leg and right leg Pain currently is 10 out of 10 on a pain scale. Pain began chronic. Neurological: Level of Consciousness is awake, alert, Oriented to person, place, time. Cardiovascular: Chest pain is denied. Respiratory: Respiratory effort is even, unlabored. : No deficits noted. Derm: Rash noted that is red, on right arm and left arm. Vital Signs: 08/13 21:20 BP 133 / 74 (auto/); lf1 21:21 Pulse 81 MON; lf1 21:35 BP 133 / 74; Pulse 76; Resp 18; Temp 97.9(O); Pulse Ox 96% on R/A; Pain 0/10; lf1 21:36 Weight 150.14 kg; Height 5 ft. 10 in. (177.80 cm); cp1 21:38 BP 121 / 68 (auto/); lf1 21:38 Pulse 81 MON; Pulse Ox 90% ; lf1 21:45 BP 128 / 65 (auto/); lf1 21:46 Pulse 77 MON; Pulse Ox 96% ; lf1 22:00 BP 125 / 62 (auto/); lf1 22:01 Pulse 75 MON; Pulse Ox 96% ; lf1 22:15 BP 117 / 59 (auto/); lf1 22:16 Pulse 77 MON; Pulse Ox 96% ; lf1 22:30 BP 124 / 63 (auto/); lf1 22:30 Pulse 84 MON; Resp 20; Pulse Ox 95% ; Pain 10/10; lf1 22:48 BP 136 / 88 (auto/); lf1 22:49 Pulse 79 MON; lf1 23:03 BP 113 / 56 (auto/); lf1 23:03 Pulse 81 MON; lf1 23:18 BP 127 / 81 (auto/); lf1 23:18 Pulse 68 MON; lf1 23:33 BP 110 / 57 (auto/); lf1 23:33 Pulse 81 MON; lf1 23:48 BP 108 / 71 (auto/); lf1 23:49 Pulse 82 MON; lf1 23:57 BP 118 / 62 (auto/); lf1 23:58 Pulse 82 MON; Resp 20; Temp 97.1(O); lf1 21:36 Body Mass Index 47.49 (150.14 kg, 177.80 cm) cp1 Vitals: 21:35 Log In Time: August 13, 2016 at 21:25. lf1 ED Course: 21:17 Patient visited by Kim Loredo, Towel Rolling Machine Operator. ml3 21:17 Jp Braun is Private Physician. ml3 21:17 Patient moved to Waiting ml3 21:18 RADHA PASCUAL is Private Physician. ml3 21:18 Patient moved to 1 ml3 21:24 Triage Initiated lf1 21:26 Prince Meraz MD is Attending Physician. pc 21:36 Patient visited by Rocio Pineda LPN. cp1 21:36 Inserted saline lock: 20 gauge in right hand and blood collected. The patient tolerated cp1 the procedure well. 21:37 Lexis Pina,RN is Primary Nurse. lf1 21:44 Patient visited by Prince Meraz MD. pc 21:49 Patient visited by Lexis Pina,JASMYNE. lf1 22:02 Patient visited by Raleigh Burgess PCA. kb5 22:11 Notified attending ED physician of Critical lab value. Dr Meraz notified of glucose of ko2 442. 22:30 The patient / caregiver is instructed regarding the plan of care and ED course. Seizure lf1 precautions initiated. 22:34 Patient visited by Lexis Pina,JASMYNE. lf1 22:[address] cp1 23:36 Patient moved to Aug 23:39 Patient visited by Prince Meraz MD. pc 23:50 [facility] is Referral Physician. pc 23:50 Murray Brown is Referral Physician. pc 23:58 Discontinued IV lock intact, bleeding controlled, pressure dressing applied, No lf1 redness/swelling at site. No procedures done that require assistance. 08/14 00:04 Patient visited by Lexis Pina RN. lf1 00:21 CT Head Without Contrast Returned. EDMS 02:34 [facility] Payment Agreement was scanned into [employer] and attached to record. b Order Results: Lab Order: CBC; SPEC'M 08/13/16 21:34 Test: WHITE BLOOD COUNT; Value: 5.4; Range: 4.0-10.0; Units: K/mm3; Status: F Test: RED BLOOD COUNT; Value: 4.46; Range: 4.30-6.10; Units: M/mm3; Status: F Test: HEMOGLOBIN; Value: 14.2; Range: 14.0-18.0; Units: g/dl; Status: F Test: HEMATOCRIT; Value: 42.9; Range: 42.0-52.0; Units: %; Status: F Test: MEAN CORPUSCULAR VOLUME; Value: 96.2; Range: 80.0-96.0; Abnormal: Above high normal; Units: fl; Status: F Test: MEAN CORPUSCULAR HEMOGLOBIN; Value: 31.8; Range: 27.0-33.0; Units: pg; Status: F Test: MEAN CORPUSCULAR HGB CONC; Value: 33.1; Range: 32.0-36.5; Units: g/dl; Status: F Test: RED CELL DISTRIBUTION WIDTH; Value: 15.0; Range: 11.5-14.5; Abnormal: Above high normal; Units: %; Status: F Test: PLATELET COUNT, AUTOMATED; Value: 74; Range: 150-450; Abnormal: Below low normal; Units: k/mm3; Status: F Lab Order: MED Profile; SPEC'M 08/13/16 21:34 Test: GLUCOSE, FASTING; Value: 442; Range: 70-105; Abnormal: Above upper panic limits; Units: MG/DL; Status: F Test: BLOOD UREA NITROGEN; Value: 27; Range: 7-18; Abnormal: Above high normal; Units: MG/DL; Status: F Test: CREATININE FOR GFR; Value: 2.94; Range: 0.70-1.30; Abnormal: Above high normal; Units: MG/DL; Status: F Test: GLOMERULAR FILTRATION RATE; Value: 23.5; Range: >56; Abnormal: Below low normal; Status: F Test: SODIUM LEVEL; Value: 134; Range: 136-145; Abnormal: Below low normal; Units: MEQ/L; Status: F Test: POTASSIUM SERUM; Value: 4.2; Range: 3.5-5.1; Units: MEQ/L; Status: F Test: CHLORIDE LEVEL; Value: 94; Range: 98-107; Abnormal: Below low normal; Units: MEQ/L; Status: F Test: CARBON DIOXIDE LEVEL; Value: 30; Range: 21-32; Units: MEQ/L; Status: F Test: ANION GAP; Value: 10; Range: 8-16; Units: MEQ/L; Status: F Test: CALCIUM LEVEL; Value: 8.4; Range: 8.5-10.1; Abnormal: Below low normal; Units: MG/DL; Status: F Test Note: ; Units are mL/min/1.73 m2 Chronic Kidney Disease Staging per NKF: Stage I & II GFR >=60 Normal to Mildly Decreased Stage III GFR 30-59 Moderately Decreased Stage IV GFR 15-29 Severely Decreased Stage V GFR <15 Very Little GFR Left ESRD GFR <15 on HEATING REPAIR TECHNICIAN Lab Order: Fingerstick Blood Sugar; SPEC'M 08/13/16 21:42 Test: BEDSIDE GLUCOSE; Value: 442; Range: 70-105; Abnormal: Above high normal; Units: MG/DL; Status: F Radiology Order: CT Head Without Contrast Test: CT Head Without Contrast REASON FOR EXAMINATION: reported seizure; ; CLINICAL HISTORY: Seizure; TECHNIQUE: Head CT without contrast; COMPARISON: November 29, 2015.; Brain: No intracranial hemorrhage, hydrocephalus, acute parenchymal edema or evident mass.; Calvarium: Unremarkable.; Sinuses (partially visualized): Clear.; Orbits: Left phthisis bulbi.; ; IMPRESSION: No acute intracranial findings.; ; Outcome: 08/13 23:50 Discharge ordered by Provider. pc 08/14 00:06 Discharge Assessment: Patient awake, alert and oriented x 3. No cognitive and/or lf1 functional deficits noted. Patient verbalized understanding of disposition instructions. Patient awake and alert. Oriented to person, place and time. Patient verbalized understanding of disposition instructions. Patient Assisted to motorized wheelchair patient administered narcotics - no. The following High Risk Discharge criteria are identified: None. Discharged to home with family. Condition: improved. Discharge instructions given to patient, family, Instructed on discharge instructions, follow up and referral plans. no driving heavy equipment, Demonstrated understanding of instructions, Pt was receptive of discharge instructions/ teaching. CT Study completed. Property :Personal belongings accompany Pt. 00:09 Patient left the ED. lf1 Signatures: Dispatcher [employer] EDMS Prince Meraz MD MD pc Newman, Jill New, RN RN dalton Loredo, Kim, Towel Rolling Machine Operator Unit ml3 Raleigh Burgess, AERIAL SURVEY TECHNICIAN AERIAL SURVEY TECHNICIAN kb5 Lexis Pina,RN RN lf1 Rocio Pineda,MIXING SUPERVISOR MIXING SUPERVISOR cp1 Paris Rosas RN RN ko2 Beck, Gabriela gjb Chart Complete MTDD
== END 2016-08-14 00:07 | disposition home or self-care (01) ==
LOC: M ED 21:16
DX: F44.5 Conversion disorder with seizures or convulsions (principal); E11.22 Type 2 diabetes mellitus with diabetic chronic kidney disease; N18.4 Chronic kidney disease, stage 4 (severe); G47.30 Sleep apnea, unspecified; G89.4 Chronic pain syndrome; J44.9 Chronic obstructive pulmonary disease, unspecified; I50.9 Heart failure, unspecified; I12.9 Hypertensive chronic kidney disease with stage 1 through stage 4 chronic kidney disease, or unspecified chronic kidney disease; M10.9 Gout, unspecified; H40.9 Unspecified glaucoma; I25.2 Old myocardial infarction; Z86.14 Personal history of Methicillin resistant Staphylococcus aureus infection; N25.81 Secondary hyperparathyroidism of renal origin; Z86.73 Personal history of transient ischemic attack (TIA), and cerebral infarction without residual deficits; Z95.5 Presence of coronary angioplasty implant and graft; Z95.810 Presence of automatic (implantable) cardiac defibrillator; Z79.899 Other long term (current) drug therapy; Z79.82 Long term (current) use of aspirin; Z79.84 Long term (current) use of oral hypoglycemic drugs; Z88.5 Allergy status to narcotic agent; Z88.6 Allergy status to analgesic agent; Z87.891 Personal history of nicotine dependence

== ENCOUNTER → 2016-10-14 | Outpatient (REF) | payer MEDICARE, MEDICAID ==
[~2016-10-14] MED LIST changes: -HYDR-3565 PO; +HYDR-3719 PO; +TORS100T PO; -TORS100T12 PO
[2016-10-14 19:55] LABS: BASO % 0.5 % (0.0-1.0); EOS # 0.1 K/mm3 (0.0-0.50); EOS % 1.5 % (0.0-3.0); LARGE UNSTAINED CELL # 0.1 K/mm3 (0.0-0.4); LARGE UNSTAINED CELL % 1.6 % (0.0-4.0); LYMPH # 1.1 K/mm3 (1.5-4.5); LYMPH % 15.5 % (24.0-44.0); MEAN CORPUSCULAR HEMOGLOBIN 32.4 pg (27.0-33.0); MEAN CORPUSCULAR HGB CONC 34.3 g/dl (32.0-36.5); MEAN CORPUSCULAR VOLUME 94.5 fl (80.0-96.0); MONO # 0.4 K/mm3 (0.0-0.8); MONO % 5.3 % (0.0-5.0); NEUTROPHILS # 5.2 K/mm3 (1.8-7.7); NEUTROPHILS % 75.6 % (36.0-66.0); RED CELL DISTRIBUTION WIDTH 14.5 % (11.5-14.5); WHITE BLOOD COUNT 6.8 K/mm3 (4.0-10.0)
[2016-10-14 20:05] LABS: ALBUMIN 4.2 GM/DL (3.2-5.2); ALBUMIN/GLOBULIN RATIO 1.31 (1.00-1.93); ALKALINE PHOSPHATASE 185 U/L (45-117); ALT/SGPT 216 U/L (12-78); ANION GAP 8 MEQ/L (8-16); AST/SGOT 126 U/L (15-37); BILIRUBIN,TOTAL 0.8 MG/DL (0.2-1.0); BLOOD UREA NITROGEN 50 MG/DL (7-18); CALCIUM LEVEL 8.2 MG/DL (8.5-10.1); CARBON DIOXIDE LEVEL 34 MEQ/L (21-32); CHLORIDE LEVEL 101 MEQ/L (98-107); CHOLESTEROL LEVEL 194 MG/DL (<200); CREATININE FOR GFR 2.86 MG/DL (0.70-1.30); GLOMERULAR FILTRATION RATE 24.3 (>56); GLUCOSE, FASTING 56 MG/DL (70-105); POTASSIUM SERUM 3.8 MEQ/L (3.5-5.1); SODIUM LEVEL 143 MEQ/L (136-145); TOTAL PROTEIN 7.4 GM/DL (6.4-8.2); TRIGLYCERIDES LEVEL 562 MG/DL (<150)
[2016-10-14 20:44] LABS: ADD MORPHOLOGY? YES; PLATELET COUNT, AUTOMATED 74 k/mm3 (150-450)
== END ==
LOC: M SFHCLERA 10:41
PROVIDERS: ATTEND Family Medicine
DX: I50.42 Chronic combined systolic (congestive) and diastolic (congestive) heart failure (principal); E11.22 Type 2 diabetes mellitus with diabetic chronic kidney disease; Z23 Encounter for immunization
CPT/HCPCS: 80053; 80061; 83036; 83880; 85025; 90686; G0008; G0463

== ENCOUNTER → 2016-10-26 | Outpatient (CLI) | payer MEDICAID, MEDICARE ==
--- NOTE | 2016-10-26 10:48 | REP ---
RIGHT UPPER QUADRANT ULTRASOUND: Real-time sonographic evaluation of the right upper quadrant performed and compared to prior ultrasound of 04/15/2016. The study is limited due to patient body habitus. The gallbladder demonstrates no evidence of intraluminal sludge or calculi, wall thickening or pericholecystic fluid. There is no intrahepatic or extrahepatic biliary dilatation, common bile duct measuring 5 mm in diameter. There is diffuse heterogeneous increased echotexture of the liver suggesting diffuse fibrofatty infiltration with no other gross abnormality identified. The pancreas could not be seen due to overlying bowel gas. Right kidney demonstrates no hydronephrosis with normal size at 12.4 cm in length. IMPRESSION: Diffuse fibrofatty infiltration of the liver. No other gross abnormality, study is limited due to patient body habitus. No significant change compared to prior study of 04/15/2016. Signed by Emmanuel Ward MD 10/26/2016 12:43 P
== END ==
LOC: M RAD 09:06
PROVIDERS: ATTEND Family Medicine
DX: K75.0 Abscess of liver (principal)

== ENCOUNTER 2016-11-13 11:44 | Inpatient (IN) | payer MEDICARE, MEDICAID, OTHER ==
[~2016-11-13] VITALS: Ht 177.8 cm; Wt 150.5 kg
[~2016-11-13 11:44] MED LIST changes: -CALC0.5C PO; +CALC0.5C6 PO; -COLA100C PO; +COLA100C3 PO
[2016-11-13] MEDS ORDERED: FUROSEMIDE 40 MG/4 ML VIAL (J1940) IV ONE (12:15)
[2016-11-13] MEDS ORDERED: TORS100T PO (12:24)
[2016-11-13] MEDS ORDERED: LYRI75CA PO (12:24)
[2016-11-13] MEDS ORDERED: METO25TA PO (12:24)
[2016-11-13] MEDS ORDERED: PRED10PA PO (12:24)
[2016-11-13] MEDS ORDERED: FINA5TAB2 PO (12:24)
--- NOTE | 2016-11-13 13:12 | REP ---
AP PORTABLE CHEST: 11/13/2016. Comparison: 03/01/2016 CT, 02/29/2016 portable chest. Clinical history: Dyspnea and cough. Findings: AICD pacer over the left upper chest now present. Sternotomy wires and clips in the mediastinum also unchanged. Basilar crowded markings with atelectasis. Superimposed patchy infiltrates could not be excluded. No gross effusion or dense consolidation with air bronchograms. Mild cardiomegaly without pulmonary edema. The aorta is tortuous but without aneurysm. Airway intact. Prior lower cervical fusion with plate and screw fixation, hardware intact. Impression: 1. Sternotomy wires and clips from prior CABG with a new AICD pacer over the left chest since previous study. 2. Bibasilar subsegmental atelectasis and/or fibrosis. Patchy infiltrates in this region would be difficult to exclude. No gross effusion or dense consolidation with air bronchograms. 3. Cardiomegaly without pulmonary edema. A mildly tortuous aorta without aneurysm. Signed by Reno Elam MD 11/13/2016 07:31 P
[2016-11-13] MEDS ORDERED: ATOR40TA PO (13:26)
[2016-11-13] MEDS ORDERED: ULOR80TA PO (13:26)
[2016-11-13] MEDS ORDERED: FLOM5CAP PO (13:26)
[2016-11-13] MEDS ORDERED: POTA10CA PO (13:26)
[2016-11-13] MEDS ORDERED: DEXI60CA PO (13:26)
[2016-11-13] MEDS ORDERED: CINA30TA PO (13:26)
[2016-11-13] MEDS ORDERED: CILO100T PO (13:26)
[2016-11-13] MEDS ORDERED: TRIA1CR TOP (13:26)
[2016-11-13] MEDS ORDERED: ZANA4TAB PO (13:26)
[2016-11-13] MEDS ORDERED: NORC10TA2 PO (13:26)
[2016-11-13] MEDS ORDERED: CALC1CAP31 PO (13:26)
[2016-11-13] MEDS ORDERED: LYRI150C PO (13:30)
[2016-11-13] MEDS ORDERED: PRED10TA PO (13:30)
[2016-11-13] MEDS ORDERED: OXYB15TA PO (13:30)
[2016-11-13] MEDS ORDERED: ONDANSETRON 4MG/2ML VIAL (J2405) IV PRN (14:30)
[2016-11-13] MEDS ORDERED: ACETAMINOPHEN TAB 650MG DOSE (2X325MG) PO PRN (14:30)
[2016-11-13 16:00] VITALS: BP 152/86
[2016-11-13] MEDS ORDERED: GLUCOSE 4 GM CHEW TABLET PO PRN (16:00)
[2016-11-13] MEDS ORDERED: ALBUTEROL 90 MCG/ACT 8GM HFA INHALER INH PRN (16:00)
[2016-11-13] MEDS ORDERED: ANEXSIA, NORCO 7.5MG/325MG TABLET(HYDROCODONE/APAP) PO PRN (16:00)
[2016-11-13] MEDS ORDERED: DEXTROSE 50% 50 ML SYRINGE IV PRN (16:00)
[2016-11-13] MEDS ORDERED: DOCUSATE SODIUM 100 MG CAP PO PRN (16:00)
[2016-11-13] MEDS ORDERED: NITROGLYCERIN 0.4 MG SUBL TABLET SL PRN (16:00)
[2016-11-13] MEDS ORDERED: GLUCAGON FOR INJ 1 MG VIAL (J1610) SC PRN (16:00)
[2016-11-13] MEDS ORDERED: TRIAMCINOLONE ACET 0.1% CREAM 15 GM TOP PRN (16:00)
[2016-11-13] MEDS ORDERED: IPRATROPIUM 0.5MG/ALBUTEROL 2.5MG INH SOL UD 3ML (DUONEB)(J7620) NEB PRN (16:15)
[2016-11-13] MEDS ORDERED: ANEXSIA, NORCO 7.5MG/325MG TABLET(HYDROCODONE/APAP) PO ONE (16:30)
[2016-11-13] MEDS: SPIRONOLACTONE 25 MG TAB PO SCH (16:53)
[2016-11-13] MEDS: HumaLOG INSULIN (NovoLOG) PER UNIT SC SCH (16:54)
[2016-11-13] MEDS: TORSEMIDE 100 MG TAB PO SCH (19:23)
[2016-11-13] MEDS: LIDOCAINE 5% OINT 30 GM TOP SCH (19:24)
[2016-11-13] MEDS: CILOSTAZOL 100 MG TAB (PLETAL) PO SCH (19:24)
[2016-11-13] MEDS: methylPREDNISolone INJ 40 MG/1 ML VIAL (J2920) IV SCH (19:28)
[2016-11-13 20:35] VITALS: BP 144/90
--- NOTE | 2016-11-13 20:38 | ECGEPIP ---
Stationary ECG Study [facility] Test Date: 2016-11-13 Pat Name: WILLIS GRAHAM Department: Room: [place] [address] Gender: M Director Biology: JOSÉ LUIS : 1960 Requested By: DILEEP Zaidi Order Number: [id number] Reading MD: Jp Braun Measurements Intervals [place] Rate: 88 P: 59 [place]: 175 QRS: -47 QRSD: 94 T: 92 QT: 351 QTc: 425 Interpretive Statements SINUS RHYTHM MARKED LEFT AXIS DEVIATION PATTERN CONSISTENT WITH PULMONARY DISEASE CANNOT R/O OLD IWMI WITH POSTERIOR EXTENSION NO CHANGE SINCE 11/28/15 Electronically Signed On 11-13-2016 20:37:51 EDT by Jp Braun
[2016-11-13] MEDS: IPRATROPIUM 0.5MG/ALBUTEROL 2.5MG INH SOL UD 3ML (DUONEB)(J7620) NEB SCH (20:39)
[2016-11-13] MEDS: MAGNESIUM OXIDE 400 MG TAB (MAG-OX) PO SCH (20:47)
[2016-11-13] MEDS: PREGABALIN 75 MG CAP(LYRICA) PO SCH (20:47)
[2016-11-13] MEDS: FERROUS SULFATE 325MG TAB PO SCH (20:47)
[2016-11-13] MEDS: CARVedilol 6.25 MG TAB PO SCH (20:48)
[2016-11-13] MEDS: NYSTATIN 100,000 UNITS/GM TOPICAL PWD 15 GM TOP SCH (20:48)
[2016-11-13] MEDS ORDERED: ATORVASTATIN 20 MG TAB PO SCH (21:00)
[2016-11-13] MEDS ORDERED: HumaLOG INSULIN (NovoLOG) PER UNIT SC SCH (21:00)
[2016-11-13] MEDS ORDERED: HEPARIN SOD (PORCINE) 5000 UNITS/ML VIAL SQ SCH (21:00)
[2016-11-13] MEDS ORDERED: TOUJEO (PATIENT'S OWN MED) SC SCH (21:00)
--- NOTE | 2016-11-13 21:11 | ECGEPIP ---
Stationary ECG Study [facility] - ED Test Date: 2016-11-13 Pat Name: WILLIS GRAHAM Department: Room: - Gender: M Game Protector: iram : 1960 Requested By: Prince Monroe Order Number: [id number] Reading MD: Kayla Lui Measurements Intervals [place] Rate: 85 P: 52 ND: 171 QRS: -87 QRSD: 97 T: 106 QT: 364 QTc: 433 Interpretive Statements SINUS RHYTHM PATTERN CONSISTENT WITH PULMONARY DISEASE LEFT ANTERIOR FASCICULAR BLOCK POSSIBLE INFERIOR MYOCARDIAL INFARCTION, OF INDETERMINATE AGE WITH POSTERIOR EXTENSION, OLD SIMILAR 11/28/15 Electronically Signed On 11-13-2016 21:11:38 EDT by Kayla Lui
--- NOTE | 2016-11-13 22:13 | HPE ---
DATE OF ADMISSION: 11/13/2016 PRIMARY CARE PHYSICIAN: Dr. Omega Mcqueen. INPATIENT HOSPITALIST ATTENDING: Dr. Rohan Bahena. CHIEF COMPLAINT: Chest heaviness, shortness of breath. HISTORY OF PRESENTING ILLNESS: This is a 55-year-old male with history of significant for coronary artery disease (CAD), status post htd-US-[id number] elevation myocardial infarction (MD) in July 2005, followed by congestive heart failure, type 2 diabetes followed by [facility], hypertension, chronic neck and low back pain, peripheral edema, glaucoma, splenomegaly, iron-deficiency anemia, macular degeneration, legally blind, benign prostatic hypertrophy (BPH) followed by urology, reflex, stage IV kidney failure followed by nephrology, tobacco abuse, gout, implantable cardioverter defibrillator (ICD) implant 01/25/2013, single-chamber Medtronic, cardiac catheterization times four stenting in 2004, most recent 06/17/2009, Dr. Espinal, [facility], CAD triple-vessel, ejection fraction (EF) of 30-35%, nuclear stress test 10/04/2010, infarction noted in lateral and inferolateral lynn, minimal devon-infarct ischemia, pharmacological SPECT 11/21/2012, extensive inferior inferolateral infarct, minimal ischemia, left ventricular ejection fraction 30%, coronary artery bypass graft (CABG) in 2008, [facility] Dr. Tineo, left internal mammary artery (UGALDE) to left anterior descending (LAD), saphenous vein graft to posterior descending artery (PDA), saphenous vein graft to obtuse marginal (OM) one and OM two, ischemic cardiomyopathy, pseudoseizure, seizures, due to seizure followup by neurology, retinal occlusion left eye [facility], granuloma anulare, obstructive sleep apnea on home continuous positive airway pressure (CPAP), epididymal cyst in the scrotum, who presents to the emergency room with worsening shortness of breath when he lies down, which started today. The patient denies fevers, chills. He is usually non ambulatory. No recent weight gain or worsening lower extremity edema. Chronically has dusky lower extremities cool to touch, evaluated by vascular surgery in [place] with no plans for surgical intervention. Currently on medical management. The patient described chest pressure as having an elephant sitting on his chest, lasting about half an hour. No relief with inhalers. No fever, chills. No shortness of breath, diaphoresis, feeling of impending doom. No radiation up the jaw or down the left arm. Subsided on its own. He presented to the emergency room for further evaluation. Electrocardiogram (EKG) shows sinus rhythm, ventricular rate of 85, pattern consistent with pulmonary disease with chronic left anterior fascicular block, possible inferior MD of indeterminate age. Chest x-ray showed no cardiopulmonary process with no effusion, pulmonary edema, or acute infiltrate. The patient was noted to have a heart rate at the bedside ranging from 42 to 140 sinus tachycardia, reverts back to 70s and 80s without significant symptoms. He is currently at baseline creatinine 2.99. He is non ambulatory at baseline. Usually weighs about 150 kg. No recent change in weight, no changes in his medications. Denies any sick contacts. Denies any nausea, vomiting, diarrhea, abdominal pain. He has chronic pain on the left side of the neck. No repeat episodes of chest pressure like the one that he experienced at home. No fevers, no bright red blood per rectum, melena, hematemesis, black tarry stools. In the emergency room (ER), hospitalist service was called for admission for evaluation of his respiratory complaint. PAST MEDICAL HISTORY: 1. CAD, non-ST segment elevation myocardial infarction 07/2005, followed by [facility]. 2. Congestive heart failure, ejection fraction of 35%. 3. Automatic implantable cardioverter defibrillator (AICD). 4. Type 2 diabetes. 5. Epididymal cyst in the scrotum. 6. Hypertension. 7. Chronic neck and low back pain. 8. Chronic peripheral edema. 9. Glaucoma. 10. Splenomegaly. 11. Iron-deficiency anemia. 12. Macular degeneration, legally blind. 13. Benign prostatic hypertrophy (BPH) followed by urology. 14. Esophageal reflux. 15. Stage IV kidney failure followed by nephrology. 16. Tobacco abuse. 17. Gout. 18. AICD implant 01/25/2013, single-chamber Medtronic. 19. Cardiac catheterization times four, stenting in 2004, most recently 06/17/2009, Dr. Espinal, [facility]. 20. Coronary artery disease, triple vessel, ejection fraction (EF) 30-35%. Nuclear stress test 10/04/2010, infarct noted in lateral inferolateral wall. Minimal devon-infarct ischemia. Pharmacologic SPECT 11/21/2012: Extensive inferior inferolateral infarct. Minimal ischemia. Left ventricular ejection fraction of 30%. CABG 2009, [facility], Dr. Tineo, UGALDE to LAD, saphenous vein graft to PDA, SVG to OM one and OM two. 21. Ischemic cardiomyopathy. 22. Seizure, pseudoseizure followed by neurology. 23. Retinal occlusion of the left eye, [facility]. 24. Granuloma anulare. 25. COPD. 26. Cerebrovascular accident (CVA) with left-sided weakness. ALLERGIES: 1. KETOROLAC. 2. TROMETHAMINE causing hallucinations. 3. BUTRANS TRANSDERMAL PATCH causing rash. 4. ADHESIVE BANDAGES - contact dermatitis. 5. MORPHINE - hallucinations with seeing spiders. SURGICAL HISTORY: 1. Quadruple bypass 2008. 2. Hydrocele repair times three 2010. 3. AICD/Pacemaker. 4. Neck surgery. 5. Hernia repair times four. 6. Colonoscopy 06/2016. SOCIAL HISTORY: Former smoker. Quit a year ago, a pack a day for 30-40 years. Denies alcohol or drinking. FAMILY HISTORY: Noncontributory due to age. REVIEW OF SYSTEMS: Per history of present illness (HPI). 12-point system otherwise negative. HOME MEDICATIONS: - Zanaflex 4 mg every eight hours as needed for muscle spasm - [place] 10/325 one tablet four times a day as needed - Dexilant 60 mg daily - Humalog before meals and at bedtime - Toujeo SoloStar 260 units at bedtime - albuterol sulfate two puffs every four hours as needed - aspirin 325 every morning - atorvastatin 40 at bedtime - calcitriol 0.5 mcg daily - Coreg 6.25 twice a day - cilostazol 100 twice a day - Sensipar 30 mg five times a week - Colace 100 mg daily as needed - Uloric 80 mg daily - ferrous sulfate 325 twice a day - finasteride 5 daily - magnesium oxide 400 twice a day - multivitamin one tablet every morning - nitroglycerin 0.4 as needed for chest pain - oxybutynin 15 mg daily - potassium Klor-Con 10 mEq daily - prednisone 10 daily - Lyrica 150 twice a day - spironolactone 25 twice a day - Flomax 0.4 daily - torsemide 100 twice a day - triamcinolone one dose topically as needed for rash PHYSICAL EXAMINATION: VITAL SIGNS: Temperature 99.3, pulse 79 to 140 sinus rhythm, respiratory rate 18, blood pressure 139/89 left arm. 95% on room air. GENERAL: The patient is awake, alert, and oriented times three. No respiratory distress. No cyanosis. No icterus or jaundice. No jugular venous distention. No thyromegaly. AICD pacer left anterior chest. HEART: Sinus tachycardia. LUNGS: Diminished crackles bilateral bases. ABDOMEN: Obese, soft, nontender, nondistended. EXTREMITIES: Right lower extremity more edematous than the left. Dusky in appearance. Chronic 3+ pitting edema per the . LABORATORY DATA: White count 6.7, hemoglobin 12, hematocrit 38, platelet count of 82. 72% neutrophils. Sodium 141, potassium 4.5, chloride 102, bicarbonate 31, BUN 44, creatinine 2.99, glucose of 112, calcium 8.6. Total CK 244, MB fraction 3. Troponin 0.02. BNP is 30.5. MICROBIOLOGY: Respiratory panel: Coronavirus 229E. IMAGING: Chest x-ray: Sternotomy wires and clips from prior CABG with new AICD pacer over the left chest since previous study. Bibasilar subsegmental atelectasis and/or fibrosis. Patchy infiltrates in this region would be difficult to exclude. No gross effusion or dense consolidation with air bronchograms. 3. Cardiomegaly without pulmonary edema. A mildly tortuous aorta without aneurysm. ASSESSMENT AND PLAN: This is a 56-year-old morbidly obese male, body mass index (BMI) 48.9, obstructive sleep apnea, chronic obstructive pulmonary disease, ischemic cardiomyopathy, history of coronary artery bypass graft (CABG), non-ST segment elevation myocardial infarction, followed by [facility], chronic kidney disease stage III-IV, chronic neck and back pain, chronic peripheral vascular disease evaluated in [place] [facility] with no plans for surgical repair, CABG times four vessels in 2008, automatic implantable cardioverter defibrillator (AICD), congestive heart failure (CHF), systolic dysfunction, diastolic dysfunction, ejection fraction (EF) of 35%, pacer placement, neck surgery, hernia repair, colonoscopy, diabetes, hypertension, hyperlipidemia, glaucoma, macular degeneration, splenomegaly, esophageal reflux disease, gout, pseudoseizure versus seizure, retinal occlusion of the left eye, , and granuloma anulare, who presents to the emergency room with acute onset of chest heaviness with worsening shortness of breath. No fever, chills. No productive cough. Evaluation included troponins which were negative, EKG showed no acute ischemia. Chest x-ray shows no edema, pleural effusion, or acute infiltrate. Respiratory panel shows coronavirus. The patient will be admitted as inpatient for two midnights for evaluation of shortness of breath and chest heaviness. IMPRESSION: 1. Shortness of breath, most likely secondary to respiratory virus, coronavirus. The patient will be admitted to the progressive care unit (PCU) under telemetry monitoring. Supportive care, nebulizer treatment, oxygen. No empiric antibiotics. No significant wheezing on exam. We will place on short course of Solu-Medrol. 2. Chest heaviness. Rule out unstable angina. Monitor for recurrent symptoms. Nitroglycerin as needed. Continue on cardiac monitoring every six hours. Repeat EKG. Telemetry monitoring to rule out arrhythmia. The patient has pacemaker. Was noted to have a heart rate of 140 sinus. Will repeat 12-lead EKG. Continue as needed nitroglycerin. Continue on aspirin. Coreg 6.25 twice a day. Spironolactone 25. Consult cardiology if ongoing chest pain, and new changes on EKG or positive troponins due to prior history of CABG and non-ST elevation inferior wall myocardial infarction (MD). 3. Chronic kidney disease at baseline. Avoid nephrotoxin. Renally dose all medications. Resume home medications for now. Torsemide, spironolactone. 4. Morbid obesity with obstructive sleep apnea. Check nocturnal pulse oximetry. May use home continuous positive airway pressure (CPAP). 5. History of congestive heart failure (CHF), ejection fraction of 35%. Appears to be compensated. Continue on home diuretics. Strict intake and output, daily weights. If worsening shortness of breath, monitor weight gain and monitor fluid status clinically. 6. Chronic neck and back pain. Continue home dose of [place]. 7. Deep venous thrombosis (DVT) prophylaxis with heparin subcutaneous.
[2016-11-13 23:42] VITALS: BP 135/83
[2016-11-14] MEDS: IPRATROPIUM 0.5MG/ALBUTEROL 2.5MG INH SOL UD 3ML (DUONEB)(J7620) NEB SCH ×2 (02:00→07:05)
[2016-11-14 04:41] VITALS: BP 172/83
[2016-11-14] MEDS ORDERED: tiZANidine 4 MG TAB PO ONE (05:00)
[2016-11-14] MEDS: methylPREDNISolone INJ 40 MG/1 ML VIAL (J2920) IV SCH (05:30)
[2016-11-14] MEDS: CILOSTAZOL 100 MG TAB (PLETAL) PO SCH (07:59)
[2016-11-14] MEDS: HumaLOG INSULIN (NovoLOG) PER UNIT SC SCH (07:59)
[2016-11-14 08:00] VITALS: BP 139/87
[2016-11-14] MEDS: LIDOCAINE 5% OINT 30 GM TOP SCH (08:00)
[2016-11-14] MEDS: NYSTATIN 100,000 UNITS/GM TOPICAL PWD 15 GM TOP SCH (08:01)
--- NOTE | 2016-11-14 08:16 | REP ---
CT CHEST WITHOUT CONTRAST: 11/13/2016. Comparison: Portable chest earlier today, CT chest 03/01/2016. Clinical history: Dyspnea. Technique: Noncontrast scanning through the chest with coronal and sagittal reconstructions provided. Findings: Some linear fibrotic changes and some dependent atelectasis in the posterior and lower lung zones. Curvilinear atelectatic change in the lateral basal segment right lower lobe and medial segment right middle lobe. There is no pleural effusion, pleural-based mass, calcific pleural plaque or pneumothorax. There is no pneumomediastinum. There is no dense consolidation or parenchymal mass. No definite pulmonary nodule. Prompt epicardial fat pads are right greater than left. Sternotomy wires are noted with the manubrium ununited, but the sternum healed. Heart is mildly enlarged. A single lead AICD pacer terminating in the right ventricle and multiple clips from prior CABG. Coronary calcifications are noted. The aorta is without aneurysm and has calcifications in the arch and descending portion. I do not see a pathologic sized mediastinal or hilar node. There is no axillary or supraclavicular mass. The medial clavicles, scapula, left glenohumeral joint, visualized ribs and the thoracic spine with cervical, thoracic, and lumbar junctions to be grossly intact without compression deformity or destructive lesion. In the upper abdomen left lobe of the liver is prominent. Spleen appears enlarged although it is not imaged in full. The liver likewise is not imaged in full, but I suspect it is enlarged along with its left hepatic lobe and some lobulation. This suggests some chronic liver disease. Only a portion of the gallbladder and pancreas are seen. Likewise, adrenal glands are seen only in part and intact with slight thickening of limbs. No hiatal hernia. Impression: 1. Some underlying linear fibrotic changes and dependent atelectasis in both lower lung zones as described. No acute infiltrate, effusion, pleural thickening or calcified pleural plaque. No nodules or masses. 2. Prior sternotomy with a single lead AICD pacer with lead tip in the right ventricle, some coronary calcifications and multiple mediastinal clips. No pericardial thickening or effusion or gross cardiomegaly. The epicardial fat pad on the right is more prominent than left and with increased size of the chest on a PA chest exam. 3. Liver with lobulated margins in the left lobe and probably enlarged spleen, but neither organ is seen in its entirety. I suspect chronic liver disease. Signed by Reno Elam MD 11/14/2016 08:43 A
[2016-11-14] MEDS ORDERED: FEBUXOSTAT 40 MG TABLET (ULORIC) PO SCH (09:00)
[2016-11-14] MEDS ORDERED: CALCITRIOL 0.25 MCG CAP (S0169) PO SCH (09:00)
[2016-11-14] MEDS ORDERED: POTASSIUM CHLORIDE 10 MEQ SR TABLET PO SCH (09:00)
[2016-11-14] MEDS ORDERED: MULTIVITAMINS/MINERALS THERAP 1 TAB PO SCH (09:00)
[2016-11-14] MEDS ORDERED: oxyBUTYnin *DITROPAN XL* 5 MG TABCR PO SCH (09:00)
[2016-11-14] MEDS ORDERED: predniSONE 10 MG TAB PO SCH (09:00)
[2016-11-14] MEDS ORDERED: ASPIRIN ENTERIC 325 MG TAB PO SCH (09:00)
[2016-11-14] MEDS ORDERED: ENOXAPARIN 30 MG/0.3 ML SYR (J1650) SC SCH (09:00)
[2016-11-14] MEDS ORDERED: CINACALCET 30 MG TAB (SENSIPAR) PO SCH (09:00)
[2016-11-14] MEDS: SPIRONOLACTONE 25 MG TAB PO SCH (09:00)
[2016-11-14] MEDS ORDERED: TAMSULOSIN 0.4 MG CAP PO SCH (09:00)
[2016-11-14] MEDS ORDERED: FINASTERIDE 5 MG TAB PO SCH (09:00)
[2016-11-14] MEDS: TORSEMIDE 100 MG TAB PO SCH (09:27)
[2016-11-14] MEDS: FERROUS SULFATE 325MG TAB PO SCH (09:27)
[2016-11-14] MEDS: PREGABALIN 75 MG CAP(LYRICA) PO SCH (09:28)
[2016-11-14 09:29] VITALS: BP 172/83
[2016-11-14] MEDS: MAGNESIUM OXIDE 400 MG TAB (MAG-OX) PO SCH (09:29)
[2016-11-14] MEDS: CARVedilol 6.25 MG TAB PO SCH (09:29)
[2016-11-14] MEDS ORDERED: PRED10TA PO (09:35)
[2016-11-14] MEDS ORDERED: SLF 3 ML SYR IV PRN (11:15)
--- NOTE | 2016-11-14 13:55 | DSES ---
DATE OF ADMISSION: 11/13/2016 DATE OF DISCHARGE: 11/14/2016 DISCHARGE DIAGNOSIS: Coronavirus. SECONDARY DIAGNOSES: 1. Decompensated chronic obstructive pulmonary disease (COPD). 2. Shortness of breath. 3. Chronic kidney disease. 4. Congestive heart failure without acute decompensation. 5. Ischemic cardiomyopathy. 6. Retinal occlusion of the left eye. 7. Gout. 8. Tobacco abuse. 9. Gastroesophageal reflux disease. 10. Macular degeneration. 11. Iron deficiency anemia. 12. Chronic neck and low back pain. 13. Obstructive sleep apnea. 14. Morbid obesity. HOSPITAL COURSE: The patient is a 56-year-old man with the aforementioned history who presented on 11/13/2016 with shortness of breath. He had reportedly had sick contacts at home with his family. He was admitted and found to have a Rosado virus infection with some mild decompensation of his COPD. He was started on IV Solu-Medrol and continued on his regular home medications. His symptoms greatly did improve. At this time, the patient is being discharged home on a prednisone taper. He is at his functional baseline. SUBJECTIVE: Today, the patient reports he is feeling well. He feels so much better than yesterday. He denies any chest pain or shortness of breath other than normal. Denies any fevers, chills, nausea, vomiting, or diarrhea. He feels quite well. He was in a talbot to go home. OBJECTIVE: VITAL SIGNS: Temperature 97, pulse 83, respiratory rate 20, blood pressure 172/83, oxygen saturation 92% on room air. GENERAL: He is an obese, man who appears older than his stated age sitting on the edge of the bed. He does not appear to be in any acute distress. HEENT: Chronic deformity of the left eye. Moist mucous membranes. No elevation of CVP. CARDIOVASCULAR EXAM: S1, S2, regular. RESPIRATORY EXAM: Relatively quite clear. ABDOMINAL EXAM: Grossly obese. Perfuse skin rash, chronic. Numerous tattoos. EXTREMITIES: No clubbing, cyanosis or edema. LABORATORY STUDIES: WBC 6.0, hemoglobin 13.3, hematocrit 41.2, and platelet count 66. Chemistry panel: Sodium 136, potassium 5.2, chloride 98, bicarbonate 30, BUN 49, creatinine 3.0. He had three sets of cardiac enzymes which are negative. BNP within normal limits. TSH was within normal limits. Arterial blood gas did not reveal any significant hypercarbia. Heparin induced antibodies currently pending. Peripheral smear revealed mild chronic anemia, thrombocytopenia present more than 15 years, likely anemia of chronic disease versus multifactorial anemia. IMAGING: The patient did have a CT scan of the chest which revealed some underlying linear fibrotic changes. No acute infiltrates. Prior sternotomy with single AICD pacer lead. ASSESSMENT AND PLAN: 56-year-old man with decompensated chronic obstructive pulmonary disease secondary to Coronavirus. PROBLEM: 1. Decompensated COPD secondary to Coronavirus. The patient will be discharged on a prednisone taper. Otherwise he is not requiring any oxygen. He is at his baseline and improved from his time of presentation. He has negative cardiac enzymes and without any concerning EKG changes. 2. Chronic kidney disease, stable. 3. Morbid obesity complicating care. 4. Congestive heart failure, compensated. He has an AICD in place. His ejection fraction is 35%. Continue with his regular Lasix. 5. Hyperkalemia, very mild. Simply continue to monitor for now. He is on regular Lasix. He did miss a dose yesterday. He will be on his regular doses of diuretic, which will likely correct this. Followup with his primary care provider. 6. Pancytopenia. Appears to be fairly chronic for many years. Could consider outpatient hematology referral. 7. Rash. The patient is reportedly on prednisone at 10 mg by mouth daily for this. We will taper him from 40 mg back down to that 10 mg dose which he is to continue from there forward. DISPOSITION: The patient is being discharged home to the care of his family. He is at his functional baseline. No medications were made during this stay other than the prednisone taper. His activity and diet are as prior to admission. He is advised to return to the emergency room (ER) if symptoms worsen. Greater than 30 minutes was spent organizing disposition.
[2016-11-14] MEDS ORDERED: SLF 3 ML SYR IV SCH (14:00)
--- NOTE | 2016-11-14 22:52 | NOCOX ---
DATE OF PROCEDURE: 11/13/2016 REFERRING PHYSICIAN: Rohan Bahena MD Nocturnal recording oximetry was performed on room air. Baseline saturation was 94%. Lowest oxygen saturation appreciated was 85%. There was a pattern of variable desaturations IMPRESSION: Abnormal nocturnal recording oximetry with variable desaturations to 85%. Rule out obstructive sleep apnea syndrome.
== END 2016-11-14 11:09 | disposition home health service (06) | DRG 191 ==
LOC: M ED 13:25 → M ED INP 14:23 → M PCU 15:59
PROVIDERS: ADMIT General Practice; ATTEND Internal Medicine
DX: J44.0 Chronic obstructive pulmonary disease with (acute) lower respiratory infection (principal); N18.4 Chronic kidney disease, stage 4 (severe); I13.0 Hypertensive heart and chronic kidney disease with heart failure and stage 1 through stage 4 chronic kidney disease, or unspecified chronic kidney disease; H34.9 Unspecified retinal vascular occlusion; I69.354 Hemiplegia and hemiparesis following cerebral infarction affecting left non-dominant side; Z68.42 Body mass index [BMI] 45.0-49.9, adult; D61.818 Other pancytopenia; J22 Unspecified acute lower respiratory infection; B97.29 Other coronavirus as the cause of diseases classified elsewhere; I25.10 Atherosclerotic heart disease of native coronary artery without angina pectoris; I25.2 Old myocardial infarction; I50.9 Heart failure, unspecified; M54.2 Cervicalgia; I25.5 Ischemic cardiomyopathy; M54.5 Low back pain; H40.9 Unspecified glaucoma; J44.1 Chronic obstructive pulmonary disease with (acute) exacerbation; G47.33 Obstructive sleep apnea (adult) (pediatric); D50.9 Iron deficiency anemia, unspecified; H35.30 Unspecified macular degeneration; E87.5 Hyperkalemia; H54.8 Legal blindness, as defined in USA; N40.0 Benign prostatic hyperplasia without lower urinary tract symptoms; E11.51 Type 2 diabetes mellitus with diabetic peripheral angiopathy without gangrene; M10.9 Gout, unspecified; E66.01 Morbid (severe) obesity due to excess calories; R16.1 Splenomegaly, not elsewhere classified; R21 Rash and other nonspecific skin eruption; L92.9 Granulomatous disorder of the skin and subcutaneous tissue, unspecified; Z88.5 Allergy status to narcotic agent; Z88.8 Allergy status to other drugs, medicaments and biological substances; Z88.6 Allergy status to analgesic agent; Z95.5 Presence of coronary angioplasty implant and graft; Z95.810 Presence of automatic (implantable) cardiac defibrillator; Z91.048 Other nonmedicinal substance allergy status; Z87.891 Personal history of nicotine dependence; Z79.891 Long term (current) use of opiate analgesic; Z79.4 Long term (current) use of insulin; Z79.82 Long term (current) use of aspirin; Z79.899 Other long term (current) drug therapy; Z79.52 Long term (current) use of systemic steroids

== ENCOUNTER → 2017-01-13 | Outpatient (REF) | payer MEDICARE, MEDICAID ==
[~2017-01-13] MED LIST changes: +CILO100T PO; +FINA5TAB2 PO; +LYRI150C PO; +LYRI75CA PO; +OXYB15TA PO; +POTA10CA PO; +PRED10PA PO; +PRED10TA PO; +TRIA1CR TOP; +ZANA4TAB PO
== END ==
LOC: M SFHCLERA 09:42
PROVIDERS: ATTEND Family Medicine
DX: E11.8 Type 2 diabetes mellitus with unspecified complications (principal)

== ENCOUNTER → 2017-03-13 | Outpatient (REF) | payer MEDICARE, MEDICAID ==
[~2017-03-13] MED LIST changes: +ASPI325T24 PO; -ASPI32ECTA PO; -ATOR40TA PO; +ATOR40TA75 PO; +CEPH500C PO; +CILO50TA PO; -COLA100C3 PO; +COLA100C5 PO; -DEXI60CA PO; +DEXI60CA2 PO; -DOCU100C PO; +DOCU100C16 PO; -ELID1CRE10 TOP; +ELID1CRE11 TOP; +FERR1TAB8 PO; -FERR325T PO; +HYDR-3716; -LYRI100C10 PO; -NORC10TA2 PO; +NORC10TA21 PO; -OXYB5TA PO; +OXYB5TAB10 PO; -PRED10TA PO; +PRED10TA2 PO; +PRED5TA; +PREG100CA PO; -PROA1AER INH; +PROAAER10 INH
== END ==
LOC: M SMT 17:11
PROVIDERS: ATTEND Nurse Practitioner Women's Health
DX: R39.15 Urgency of urination (principal)
CPT/HCPCS: 81001; 87086; G0463

== ENCOUNTER 2017-04-04 09:26 | Emergency (ER) | payer MEDICARE, MEDICAID ==
[~2017-04-04] VITALS: Ht 177.8 cm; Wt 145.4 kg
[~2017-04-04 09:26] MED LIST changes: -CEPH500C PO; -CILO50TA PO; -HYDR-3716; -PRED5TA
[2017-04-04 10:45] LABS: BASO # 0.1 K/mm3 (0.0-0.2); BASO % 1.2 % (0.0-1.0); EOS # 0.1 K/mm3 (0.0-0.50); LARGE UNSTAINED CELL # 0.1 K/mm3 (0.0-0.4); LARGE UNSTAINED CELL % 2.2 % (0.0-4.0); LYMPH # 0.8 K/mm3 (1.5-4.5); LYMPH % 15.9 % (24.0-44.0); MEAN CORPUSCULAR VOLUME 97.3 fl (80.0-96.0); MONO # 0.3 K/mm3 (0.0-0.8); MONO % 5.8 % (0.0-5.0); NEUTROPHILS # 3.6 K/mm3 (1.8-7.7); RED CELL DISTRIBUTION WIDTH 14.4 % (11.5-14.5); WHITE BLOOD COUNT 4.9 K/mm3 (4.0-10.0)
[2017-04-04 10:48] LABS: PLATELET COUNT, AUTOMATED 76 k/mm3 (150-450)
[2017-04-04 10:59] LABS: CALCIUM LEVEL 8.6 MG/DL (8.5-10.1); CREATININE FOR GFR 2.99 MG/DL (0.70-1.30); GLOMERULAR FILTRATION RATE 23.1 (>56); POTASSIUM SERUM 4.6 MEQ/L (3.5-5.1)
[2017-04-04] MEDS ORDERED: CEPH500C PO (11:25)
--- NOTE | 2017-04-04 11:33 | REP ---
Duplex extremity venous ultrasound: Right lower extremity. History: Right lower extremity swelling and redness. Findings: The deep veins are anechoic and fully compressible from the groin to the popliteal fossa in the right lower extremity. Color flow imaging is homogeneous. Spectral Doppler interrogation demonstrates intact respiratory variation in flow and normal manual augmentation of flow. There is no evidence of deep vein thrombosis. Impression: Negative right lower extremity duplex venous ultrasound. No evidence of deep vein thrombosis. Signed by Wilmar Lima MD 04/04/2017 11:24 A
[2017-04-04 11:39] VITALS: BP 141/81
== END 2017-04-04 11:42 | disposition home or self-care (01) ==
LOC: M ED 09:26
DX: L03.115 Cellulitis of right lower limb (principal); I25.10 Atherosclerotic heart disease of native coronary artery without angina pectoris; I50.9 Heart failure, unspecified; I25.2 Old myocardial infarction; E11.9 Type 2 diabetes mellitus without complications; I12.9 Hypertensive chronic kidney disease with stage 1 through stage 4 chronic kidney disease, or unspecified chronic kidney disease; N18.4 Chronic kidney disease, stage 4 (severe); Z95.1 Presence of aortocoronary bypass graft; Z98.61 Coronary angioplasty status; Z95.810 Presence of automatic (implantable) cardiac defibrillator; Z87.891 Personal history of nicotine dependence

== ENCOUNTER → 2017-04-14 | Outpatient (CLI) | payer MEDICARE, MEDICAID ==
[~2017-04-14] MED LIST changes: +CEPH500C PO; +CILO50TA PO; +HYDR-3716; +PRED5TA
--- NOTE | 2017-04-14 16:45 | REP ---
Chest x-ray: Sitting three views presented. History: Orthopnea. Findings: Sitting upright AP and lateral views of the chest demonstrate prior median sternotomy wires and mediastinal clips. A pacemaker is again noted in the right heart via the left side. There is mild linear bibasilar plate-like fibrosis. This is unchanged from the November 13, 2016 prior study. No pleural effusion or infiltrate is seen. Heart is not felt to be enlarged. Pulmonary vasculature is not increased. Impression: Mild bibasilar linear fibrosis. Pacemaker. Prior sternotomy. Status post lower cervical spine fusion. No acute disease. Signed by Wilmar Lima MD 04/17/2017 07:53 A
== END ==
LOC: M LRY 15:41
PROVIDERS: ATTEND Physician Assistant
DX: R06.01 Orthopnea (principal); Z95.0 Presence of cardiac pacemaker; Z95.1 Presence of aortocoronary bypass graft; Z98.1 Arthrodesis status
CPT/HCPCS: 71020; 80053; 83880; 85027; 85652; G0463

== ENCOUNTER → 2017-04-14 | Outpatient (REF) | payer MEDICARE, MEDICAID ==
[2017-04-14 21:03] LABS: ALBUMIN/GLOBULIN RATIO 1.08 (1.00-1.93); BILIRUBIN,TOTAL 0.6 MG/DL (0.2-1.0); CREATININE FOR GFR 3.3 MG/DL (0.70-1.30); GLOMERULAR FILTRATION RATE 20.6 (>56); MEAN CORPUSCULAR HEMOGLOBIN 32.8 pg (27.0-33.0); MEAN CORPUSCULAR HGB CONC 33.5 g/dl (32.0-36.5); MEAN CORPUSCULAR VOLUME 97.8 fl (80.0-96.0); POTASSIUM SERUM 4.2 MEQ/L (3.5-5.1); RED CELL DISTRIBUTION WIDTH 14.9 % (11.5-14.5); TOTAL PROTEIN 7.7 GM/DL (6.4-8.2); WHITE BLOOD COUNT 8.6 K/mm3 (4.0-10.0)
== END ==
LOC: M SFHCLERA 15:33
PROVIDERS: ATTEND Physician Assistant
DX: R06.01 Orthopnea (principal); L03.115 Cellulitis of right lower limb

== ENCOUNTER 2017-05-03 08:54 | Outpatient (RCR) | payer MEDICARE, MEDICAID ==
[~2017-05-03 08:54] MED LIST changes: -CILO50TA PO; -HYDR-3716; -PRED5TA
== END 2017-05-06 ==
LOC: M PT 08:54
PROVIDERS: ATTEND Family Medicine
DX: Z51.89 Encounter for other specified aftercare (principal); M79.89 Other specified soft tissue disorders
CPT/HCPCS: 97162; G8978; G8979

== ENCOUNTER → 2017-05-04 | Outpatient (REF) | payer MEDICARE, MEDICAID ==
[~2017-05-04] MED LIST changes: +CILO50TA PO; +HYDR-3716; +PRED5TA
== END ==
LOC: CANPREREF → M SFHCLERA 09:27
PROVIDERS: ATTEND Family Medicine
DX: G89.29 Other chronic pain (principal); Z53.8 Procedure and treatment not carried out for other reasons

== ENCOUNTER 2017-05-20 15:26 | Emergency (ER) | payer MEDICARE, MEDICAID ==
[~2017-05-20] VITALS: Ht 177.8 cm; Wt 151.5 kg
[~2017-05-20 15:26] MED LIST changes: -CILO50TA PO; -HYDR-3716; -PRED5TA
[2017-05-20] MEDS ORDERED: HYDR-3716 (15:53)
[2017-05-20] MEDS ORDERED: PRED5TA (15:53)
[2017-05-20] MEDS ORDERED: CILO50TA PO (15:53)
[2017-05-20 16:35] LABS: BASO % 0.4 % (0.0-1.0); EOS # 0.1 10^3/uL (0.0-0.50); EOS % 1.6 % (0.0-3.0); LYMPH # 1.3 10^3/uL (1.5-4.5); MEAN CORPUSCULAR HEMOGLOBIN 32.5 pg (27.0-33.0); MEAN CORPUSCULAR HGB CONC 32.5 g/dl (32.0-36.5); MONO # 0.4 10^3/uL (0.0-0.8); RED CELL DISTRIBUTION WIDTH 15.8 % (11.5-14.5); WHITE BLOOD COUNT 4.9 10^3/uL (4.0-10.0)
[2017-05-20 16:40] LABS: ANION GAP 8 MEQ/L (8-16); BLOOD UREA NITROGEN 42 MG/DL (7-18); CALCIUM LEVEL 8.4 MG/DL (8.5-10.1); CARBON DIOXIDE LEVEL 31 MEQ/L (21-32); CHLORIDE LEVEL 101 MEQ/L (98-107); CREATININE FOR GFR 3.14 MG/DL (0.70-1.30); GLOMERULAR FILTRATION RATE 21.8 (>56); GLUCOSE, FASTING 285 MG/DL (70-105); POTASSIUM SERUM 4.6 MEQ/L (3.5-5.1); SODIUM LEVEL 140 MEQ/L (136-145)
[2017-05-20 16:50] LABS: PLATELET COUNT, AUTOMATED 69 10^3/uL (150-450)
[2017-05-20 16:52] LABS: IMMATURE PLATELET FRACTION % 14.8 % (0.0-10.9)
[2017-05-20] MEDS: IPRATROPIUM 0.5MG/ALBUTEROL 2.5MG INH SOL UD 3ML (DUONEB)(J7620) NEB SCH ×3 (16:55→17:29)
[2017-05-20 17:02] LABS: ABG BASE EXCESS 2.4 (-2.0-2.0); ABG HCO3 27.3 MEQ/L (22.0-26.0); ABG PARTIAL PRESSURE O2 60.3 mmHg (75.0-100.0); ABG STANDARD HCO3 26.5 MEQ/L (22.0-26.0); ABG TOTAL CO2 28.6 MEQ/L (22.0-29.0)
[2017-05-20] MEDS ORDERED: methylPREDNISolone INJ 125 MG/2 ML VIAL (J2930) IV ONE (17:30)
[2017-05-20 22:12] VITALS: BP 171/96
--- NOTE | 2017-05-21 11:29 | REP ---
Portable chest x-ray: Single view. History: Chest pain. Comparison study: April 14, 2017. Findings: EKG monitoring electrodes overlie the chest. A unipolar pacemaker is seen in the right heart via the left side. Prior sternotomy wires are again noted. Heart size is borderline unchanged. No infiltrate is seen. Pulmonary vasculature is not increased. Impression: Borderline heart size with pacemaker prior sternotomy wires. Otherwise no acute disease. Signed by Wilmar Lima MD 05/21/2017 09:36 A
--- NOTE | 2017-05-22 07:55 | ECGEPIP ---
Stationary ECG Study [facility] - ED Test Date: 2017-05-20 Pat Name: WILLIS GRAHAM Department: Room: - Gender: M Property Custodian: bryan : 1960 Requested By: Prince Monroe Order Number: [id number] Reading MD: Prince Meraz Measurements Intervals [place] Rate: 88 P: 66 MI: 164 QRS: -55 QRSD: 90 T: 106 QT: 361 QTc: 437 Interpretive Statements SINUS RHYTHM POSSIBLE LEFT ATRIAL ENLARGEMENT LAD PATTERN CONSISTENT WITH PULMONARY DISEASE LEFT ANTERIOR FASCICULAR BLOCK INFERIOR MYOCARDIAL INFARCTION, OF INDETERMINATE AGE WITH POSTERIOR EXTENSION SIMILAR TO 11/13/16 Electronically Signed On 05-22-2017 7:54:39 EDT by Prince Meraz
--- NOTE | 2017-05-22 07:57 | ECGEPIP ---
Stationary ECG Study [facility] - ED Test Date: 2017-05-20 Pat Name: WILLIS GRAHAM Department: Room: - Gender: M Block Captain: MccabeB: 1960 Requested By: Prince Monroe Order Number: [id number] Reading MD: Prince Meraz Measurements Intervals [place] Rate: 92 P: 61 MO: 163 QRS: -81 QRSD: 94 T: 87 QT: 349 QTc: 433 Interpretive Statements SINUS RHYTHM POSSIBLE LEFT ATRIAL ENLARGEMENT LEFT AXIS DEVIATION PATTERN CONSISTENT WITH PULMONARY DISEASE LEFT ANTERIOR FASCICULAR BLOCK POSSIBLE INFERIOR MYOCARDIAL INFARCTION, OF INDETERMINATE AGE WITH POSTERIOR EXTENSION SIMILAR TO PRIOR ON SAME DATE Electronically Signed On 05-22-2017 7:56:51 EDT by Prince Meraz
== END 2017-05-20 23:59 | disposition home or self-care (01) ==
LOC: M ED 15:26 → EDBD 15:26 → M ED 23:59
DX: R07.89 Other chest pain (principal); R06.02 Shortness of breath; I11.0 Hypertensive heart disease with heart failure; I50.9 Heart failure, unspecified; E11.9 Type 2 diabetes mellitus without complications; E78.5 Hyperlipidemia, unspecified; G47.33 Obstructive sleep apnea (adult) (pediatric); Z95.1 Presence of aortocoronary bypass graft; Z95.5 Presence of coronary angioplasty implant and graft; E66.9 Obesity, unspecified; Z86.73 Personal history of transient ischemic attack (TIA), and cerebral infarction without residual deficits; Z79.899 Other long term (current) drug therapy; Z98.2 Presence of cerebrospinal fluid drainage device; Z79.4 Long term (current) use of insulin; Z88.5 Allergy status to narcotic agent; Z88.8 Allergy status to other drugs, medicaments and biological substances; Z87.891 Personal history of nicotine dependence
CPT/HCPCS: 36600; 71010; 80048; 82550; 82553; 82803; 83880; 84484; 85025; 85049; 85055; 87040; 93005; 93041; 94640; 96374; 99285; J2930

== ENCOUNTER → 2017-06-22 | Outpatient (REF) | payer MEDICARE, MEDICAID ==
[~2017-06-22] MED LIST changes: +CILO50TA PO; +HYDR-3716; +PRED5TA PO; +VICT18IN SC; +[UNRECOGNIZED DRUG - OTHER] SQ
[2017-06-22 11:29] LABS: BASO % 0.6 % (0.0-1.0); EOS # 0.1 10^3/uL (0.0-0.50); EOS % 1.4 % (0.0-3.0); IMMATURE GRANULOCYTE % 0.8 % (0-0); LYMPH # 1.3 10^3/uL (1.5-4.5); LYMPH % 25.9 % (24.0-44.0); MEAN CORPUSCULAR HGB CONC 32.1 g/dl (32.0-36.5); MEAN CORPUSCULAR VOLUME 99.8 fl (80.0-96.0); MONO # 0.4 10^3/uL (0.0-0.8); MONO % 8.7 % (0.0-5.0); NEUTROPHILS # 3.1 10^3/uL (1.8-7.7); NEUTROPHILS % 62.6 % (36.0-66.0); RED CELL DISTRIBUTION WIDTH 14.8 % (11.5-14.5); WHITE BLOOD COUNT 4.9 10^3/uL (4.0-10.0)
[2017-06-22 11:30] LABS: PLATELET COUNT, AUTOMATED 60 10^3/uL (150-450)
[2017-06-22 11:31] LABS: IMMATURE PLATELET FRACTION % 12.9 % (0.0-10.9); PLATELET F 60
== END ==
LOC: SKLABADC 10:21
PROVIDERS: ATTEND Family Medicine
DX: D69.6 Thrombocytopenia, unspecified (principal); E11.59 Type 2 diabetes mellitus with other circulatory complications

== ENCOUNTER 2017-07-07 10:06 | Day surgery (SDC) | payer MEDICARE, MEDICAID ==
[~2017-07-07] VITALS: Ht 177.8 cm; Wt 153.5 kg
[~2017-07-07 10:06] MED LIST changes: +LR 1,000 ML IV ONE
[2017-07-07] MEDS ORDERED: NORCO, ANEXSIA 5/325MG TABLET (HYDROcodone/ACETAMINOPHEN) As Ordered ONE (13:20)
[2017-07-07] MEDS ORDERED: NORCO, ANEXSIA 5/325MG TABLET (HYDROcodone/ACETAMINOPHEN) PO ONE (13:30)
[2017-07-07] MEDS ORDERED: CARVedilol 6.25 MG TAB As Ordered ONE (13:49)
[2017-07-07 13:50] VITALS: BP 145/89
[2017-07-07] MEDS ORDERED: CARVedilol 6.25 MG TAB PO ONE (14:00)
[2017-07-07] MEDS ORDERED: NS 1,000 ML IV ONE (14:00)
[2017-07-07] MEDS ORDERED: LIDOCAINE 1% SDV INJ 30 ML VIAL As Ordered ONE (14:54)
[2017-07-07] MEDS ORDERED: HEPARIN SOD (PORCINE) 5000 UNITS/ML VIAL As Ordered ONE (14:54)
[2017-07-07] MEDS ORDERED: BUPIVACAINE HCL 0.5% 10 ML VIAL As Ordered ONE (14:54)
[2017-07-07] MEDS ORDERED: BUPIVACAINE HCL 0.5% 30 ML VIAL As Ordered ONE (14:55)
[2017-07-07] MEDS ORDERED: PROPOFOL 200 MG/20 ML VIAL As Ordered ONE ×2 (15:08→16:47)
[2017-07-07] MEDS ORDERED: LIDOCAINE 2% INJ 100 MG/5 ML SDV (FOR ANES.) As Ordered ONE (15:08)
[2017-07-07] MEDS ORDERED: MIDAZOLAM INJ 2 MG/2 ML VIAL (J2250) As Ordered ONE (15:09)
[2017-07-07] MEDS ORDERED: fentaNYL 100 MCG/2 ML INJECTION (J3010) As Ordered ONE (15:09)
[2017-07-07] MEDS ORDERED: ONDANSETRON 4MG/2ML VIAL (J2405) As Ordered ONE (16:01)
[2017-07-07 16:50] VITALS: BP 123/74
--- NOTE | 2017-07-28 11:13 | RO ---
DATE OF PROCEDURE: 07/07/2017 PREPROCEDURE DIAGNOSES: Chronic renal insufficiency nearing endstage renal disease, bilateral lower extremity venous valvular insufficiency. POSTPROCEDURE DIAGNOSES: Chronic renal insufficiency nearing endstage renal disease, bilateral lower extremity venous valvular insufficiency. PROCEDURE: Left radiocephalic arteriovenous fistula creation. SURGEON: Dr. Louie Joyner. SURVEILLANCE AGENT: None. ANESTHESIA: Local monitored anesthesia care (MAC). ESTIMATED BLOOD LOSS: 20 mL. IV FLUID: 500 mL. HEPARIN : None. COMPLICATION: None. DRAINS: None. SPECIMENS: None. IMPLANTS: None. INDICATION: The patient is a 57-year-old male with chronic renal insufficiency nearing endstage renal disease who will require access for hemodialysis in the future. The patient underwent evaluation and was felt to be a good candidate for a left radiocephalic, possible left brachiocephalic arteriovenous fistula. Risks, benefits, and alternative treatment options were discussed with the patient. DESCRIPTION OF PROCEDURE: The patient was taken to the operating room, placed supine on the operating room table and then the left upper extremity was prepped and draped in the standard surgical fashion. Two incisions were made at the wrist, one overlying the cephalic vein, one overlying the radial artery. The cephalic vein and radial artery were sharply dissected free and then encircled with Vesseloops. The cephalic vein was transected as far distal as possible with the remnant ligated with an 0 silk suture. The cephalic vein was then dilated with heparinized saline and was noted to dilate and flush easily. The cephalic vein was brought through a tunnel between the two incisions and then anastomosed to the radial artery in an end to side fashion using #6-0 Prolene suture. There was good flow in the cephalic vein at the completion of the anastomosis. Hemostasis was obtained after which the incisions were closed using #3-0 Monocryl in a running subcuticular fashion. Dressings were applied. All instruments, sponge and needle counts were correct at the end of the case. There were no complications. Dr. Joyner was present was present for and directed the entire case. The patient was transferred to the holding area and subsequently discharged in stable condition.
== END 2017-07-07 17:03 | disposition home or self-care (01) ==
LOC: M SDC 10:06
PROVIDERS: ATTEND Surgery Vascular Surgery
DX: N18.4 Chronic kidney disease, stage 4 (severe) (principal); I12.9 Hypertensive chronic kidney disease with stage 1 through stage 4 chronic kidney disease, or unspecified chronic kidney disease; I51.9 Heart disease, unspecified; E10.9 Type 1 diabetes mellitus without complications; R07.9 Chest pain, unspecified; I25.10 Atherosclerotic heart disease of native coronary artery without angina pectoris; I25.2 Old myocardial infarction; K21.9 Gastro-esophageal reflux disease without esophagitis; R11.0 Nausea; R29.898 Other symptoms and signs involving the musculoskeletal system; M12.9 Arthropathy, unspecified; F32.9 Major depressive disorder, single episode, unspecified; I69.998 Other sequelae following unspecified cerebrovascular disease; J45.909 Unspecified asthma, uncomplicated; J44.9 Chronic obstructive pulmonary disease, unspecified; G47.30 Sleep apnea, unspecified; N40.0 Benign prostatic hyperplasia without lower urinary tract symptoms; Z88.5 Allergy status to narcotic agent; Z88.6 Allergy status to analgesic agent; Z79.899 Other long term (current) drug therapy; Z79.4 Long term (current) use of insulin; Z79.82 Long term (current) use of aspirin; Z86.14 Personal history of Methicillin resistant Staphylococcus aureus infection; Z86.69 Personal history of other diseases of the nervous system and sense organs; Z95.5 Presence of coronary angioplasty implant and graft; Z95.810 Presence of automatic (implantable) cardiac defibrillator
CPT/HCPCS: 36415; 36821; 84132; J2250; J2405; J3010

== ENCOUNTER → 2017-07-25 | Outpatient (CLI) | payer MEDICARE, MEDICAID | LOC: M PAIN 11:15 | DX: G89.29 Other chronic pain (principal); G62.9 Polyneuropathy, unspecified; I25.10 Atherosclerotic heart disease of native coronary artery without angina pectoris; E11.22 Type 2 diabetes mellitus with diabetic chronic kidney disease; N18.4 Chronic kidney disease, stage 4 (severe); D50.9 Iron deficiency anemia, unspecified; M10.9 Gout, unspecified; R56.9 Unspecified convulsions; L23.1 Allergic contact dermatitis due to adhesives; Z88.5 Allergy status to narcotic agent; Z88.8 Allergy status to other drugs, medicaments and biological substances; Z79.82 Long term (current) use of aspirin; Z79.891 Long term (current) use of opiate analgesic; Z79.4 Long term (current) use of insulin; Z79.52 Long term (current) use of systemic steroids; Z79.899 Other long term (current) drug therapy; Z87.891 Personal history of nicotine dependence; Z95.0 Presence of cardiac pacemaker | CPT/HCPCS: G0463 ==

== ENCOUNTER → 2017-08-01 | Outpatient (REF) | payer MEDICARE, MEDICAID ==
[~2017-08-01] MED LIST changes: -LR 1,000 ML IV ONE
[2017-08-01 14:02] LABS: VITAMIN B12 LEVEL 720 PG/ML (247-911)
[2017-08-01 14:40] LABS: FOLATE 20.5 NG/ML (>5.4)
== END ==
LOC: M LAB REF 13:12
PROVIDERS: ATTEND Internal Medicine Medical Oncology
DX: D69.6 Thrombocytopenia, unspecified (principal)

== ENCOUNTER → 2017-08-17 | Outpatient (REF) | payer MEDICARE, MEDICAID, OTHER ==
[2017-08-17 12:14] LABS: ESTIMATED AVERAGE GLUCOSE 134 MG/DL (60-110); HEMOGLOBIN A1c 6.3 %
[2017-08-17 12:48] LABS: CHOLESTEROL LEVEL 131 MG/DL (<200); CHOLESTEROL RISK RATIO 3.119 (<5); HDL CHOLESTEROL 42 MG/DL (>40); NON-HDL-C 89 MG/DL; TRIGLYCERIDES LEVEL 240 MG/DL (<150)
== END ==
LOC: SKLABADC 09:16
DX: E11.22 Type 2 diabetes mellitus with diabetic chronic kidney disease (principal); E78.2 Mixed hyperlipidemia; N18.9 Chronic kidney disease, unspecified
CPT/HCPCS: 83036

== ENCOUNTER → 2017-08-18 | Outpatient (CLI) | payer MEDICARE, MEDICAID, OTHER | LOC: M SMT 10:32 | DX: Z12.5 Encounter for screening for malignant neoplasm of prostate (principal) | CPT/HCPCS: G0103 ==

== ENCOUNTER → 2017-08-22 | Outpatient (CLI) | payer MEDICARE, MEDICAID, OTHER | LOC: M PAIN 09:15 | DX: G62.9 Polyneuropathy, unspecified (principal); E11.22 Type 2 diabetes mellitus with diabetic chronic kidney disease; I12.9 Hypertensive chronic kidney disease with stage 1 through stage 4 chronic kidney disease, or unspecified chronic kidney disease; N18.4 Chronic kidney disease, stage 4 (severe); R16.1 Splenomegaly, not elsewhere classified; M10.9 Gout, unspecified; R56.9 Unspecified convulsions; Z79.82 Long term (current) use of aspirin; Z79.52 Long term (current) use of systemic steroids; Z79.4 Long term (current) use of insulin; Z79.899 Other long term (current) drug therapy; Z88.5 Allergy status to narcotic agent; Z88.8 Allergy status to other drugs, medicaments and biological substances; Z91.048 Other nonmedicinal substance allergy status; Z95.1 Presence of aortocoronary bypass graft; Z95.810 Presence of automatic (implantable) cardiac defibrillator; Z87.891 Personal history of nicotine dependence; Z86.73 Personal history of transient ischemic attack (TIA), and cerebral infarction without residual deficits | CPT/HCPCS: G0463 ==

== ENCOUNTER → 2017-08-24 | Outpatient (REF) | payer MEDICARE, MEDICAID, OTHER | LOC: M LAB REF 15:05 | DX: D69.6 Thrombocytopenia, unspecified (principal) | CPT/HCPCS: 88300 ==

== ENCOUNTER → 2017-09-19 | Day surgery (SDC) | payer MEDICARE, MEDICAID ==
[~2017-09-19] MED LIST changes: -/ADVA50050 IN; -/ATOR40TA PO; -/CIPR75TA OR; -/OMEP10CA; -/PANT40TA; -/SALMDISK IN; -ADVA115A INH; -ADVAIR500 INHALATION; -ALBU83IN IN; -ALBU83IN INH; -ALBUTEROL INHALATION; -ALCOHOL TOP; -ALDACTON50 PO; -ALLO10TA PO; -ALTACE10 PO; -ASPI325T PO; -ASPI325T24 PO; -ATOR40TA75 PO; -AVANDIA4 PO; -AVOD0.5C OR; -AVOD0.5C PO; -BACTRIMDS PO; -CALC0.5C6 PO; -CALC1CAP31 PO; -CAPOTEN PO; -CARV12.5 PO; -CARV25TA OR; -CARV6.25 PO; -CEPH500C PO; -CILO100T PO; -CILO50TA PO; -CINA30TA PO; -CIPR500T19 OR; -COLA100C5 PO; -COMBIVENT PO; -DEPAKOT500 PO; -DEXI60CA2 PO; -DOCU100C16 PO; -DYNACIRC PO; -ELID1CRE11 TOP; -FEBU40TA PO; -FERR1TAB8 PO; -FERR325T3 PO; -FINA5TAB2 PO; -FLOM5CAP PO; -FURO40TA2 OR; -FURO80TA2 OR; -GLUC1000 PO; -GLUC1KIT INJ; -GLUC5TAB PO; -GLUCOP1000 PO; -GLUCULTRA TOPICAL; -HEPA100PFS INJ; -HUMA100I5 SC; -HUMA50IN4 SC; -HUMALOG SQ; -HYDR-3716; -HYDR-3719 PO; -HYDR25TA6; -Hydrocodone PO; -INSUHUMDS SC; -IPRA2IN INH; -IPRASOL4 INH; -IRON28TA OR; -ISOS30BRAN; -Januvia PO; -KEFLEX250 PO; -KEPP250T5 PO; -KLONOPIN PO; -LACHYDRIN TOP; -LANCMIS; -LANTINJ4 SC; -LASIX20 PO; -LASIX40 PO; +LIDOCAINE 2% INJ 100 MG/5 ML SDV (FOR ANES.) As Ordered; -LIPITOR40 PO; -LOPR100T; -LOPRESS100 PO; -LOPRESS50 PO; -LORTAB10 PO; -LOTRISCREA TOPICALLY; -LYRI150C PO; -LYRI75CA PO; -MAGN400T5 PO; -MAGN500T2 OR; -METFORM500 PO; -METO25TA PO; +MIDAZOLAM INJ 2 MG/2 ML VIAL (J2250) As Ordered; -MULTIVIT PO; -NICO21DI4; -NITR0.4S SL; -NITR4TASL SL; -NITROSTAT4 SL; -NORC10TA21 PO; -NORV5TAB; +NS 1,000 ML IV; -OMEP20TA7 OR; -OXYB15TA PO; -OXYB5TAB PO; -OXYB5TAB10 PO; -PLAV75TA2; -PLAVIX75 PO; -PLENDIL10 PO; -POTA10CA PO; -POTA99TA OR; -PRED10PA PO; -PRED10TA2 PO; -PRED5TA PO; -PREDNISO20 PO; -PREDTAP PO; -PREG100CA PO; -PRILOSEC20 PO; -PRIN20TA3; -PROAAER10 INH; +PROPOFOL 200 MG/20 ML VIAL As Ordered; -PULM0.5S INH; -SALI0.9I2 IV; -SOMA350 PO; -SOMA350T PO; -SPIR25TA2 PO; -SYR.5; -TORS100T PO; -TORS20TA2 PO; -TOUJ1.2I SC; -TRIA1CR TOP; -TRIAMCIN TOPICAL; -TYLE1TAB5 PO; -ULOR80TA PO; -VENTAER IN; -VICODIN10 PO; -VICT18IN SC; -VITMTA PO; -Victoza SC; -ZANA4TAB PO; -ZOCOR40 PO; -ZOCOR80 PO; -ZOFR20TA PO; -ZOFR4TAB3 PO; -ZOSY2INJ2 IV; -[UNRECOGNIZED DRUG - CODE] PO; -[UNRECOGNIZED DRUG - CODE] PO; -[UNRECOGNIZED DRUG - CODE] PO; -[UNRECOGNIZED DRUG - OTHER]; -[UNRECOGNIZED DRUG - OTHER]; -[UNRECOGNIZED DRUG - OTHER] SQ; -[UNRECOGNIZED DRUG - OTHER] SQ; +fentaNYL 100 MCG/2 ML INJECTION (J3010) As Ordered; -mycostatin powder TOP
[2017-09-19 15:57] LABS: POTASSIUM SERUM 4.6 MEQ/L (3.5-5.1)
[2017-09-19 16:45] LABS: BEDSIDE GLUCOSE 232 MG/DL (70-105)
[2017-09-19] MEDS: D5W/0.2% SODIUM CHLORIDE 1,000 ML IV (17:10)
[2017-09-19] MEDS: BUPIVACAINE HCL 0.5% 30 ML VIAL As Ordered (19:44)
[2017-09-19] MEDS: LIDOCAINE 1% SDV INJ 30 ML VIAL As Ordered (19:44)
[2017-09-19] MEDS: HEPARIN SOD (PORCINE) 5000 UNITS/ML VIAL As Ordered (20:00)
== END | disposition home or self-care (01) ==
LOC: M SDC 15:19
DX: N18.9 Chronic kidney disease, unspecified (principal); I87.311 Chronic venous hypertension (idiopathic) with ulcer of right lower extremity; L97.519 Non-pressure chronic ulcer of other part of right foot with unspecified severity; I87.2 Venous insufficiency (chronic) (peripheral)
CPT/HCPCS: 36821

== ENCOUNTER → 2017-10-03 | Outpatient (CLI) | payer MEDICARE, MEDICAID | LOC: M RAD 11:39 | DX: I70.213 Atherosclerosis of native arteries of extremities with intermittent claudication, bilateral legs (principal); I70.249 Atherosclerosis of native arteries of left leg with ulceration of unspecified site; N18.6 End stage renal disease; L97.929 Non-pressure chronic ulcer of unspecified part of left lower leg with unspecified severity | CPT/HCPCS: 93925 ==

== ENCOUNTER → 2017-10-23 | Outpatient (CLI) | payer MEDICARE, MEDICAID, OTHER | LOC: M PAIN 09:45 | DX: G62.9 Polyneuropathy, unspecified (principal); G89.29 Other chronic pain; I25.2 Old myocardial infarction; E11.22 Type 2 diabetes mellitus with diabetic chronic kidney disease; I12.0 Hypertensive chronic kidney disease with stage 5 chronic kidney disease or end stage renal disease; N18.5 Chronic kidney disease, stage 5; R56.9 Unspecified convulsions; Z79.82 Long term (current) use of aspirin; Z79.52 Long term (current) use of systemic steroids; Z79.4 Long term (current) use of insulin; Z79.899 Other long term (current) drug therapy; Z88.8 Allergy status to other drugs, medicaments and biological substances; Z88.5 Allergy status to narcotic agent; Z91.09 Other allergy status, other than to drugs and biological substances; Z95.0 Presence of cardiac pacemaker; Z79.891 Long term (current) use of opiate analgesic; Z87.891 Personal history of nicotine dependence; Z87.39 Personal history of other diseases of the musculoskeletal system and connective tissue | CPT/HCPCS: G0463 ==

== ENCOUNTER → 2017-12-04 | Outpatient (CLI) | payer MEDICARE, MEDICAID, OTHER | LOC: M PAIN 10:00 | DX: Z53.29 Procedure and treatment not carried out because of patient's decision for other reasons (principal) ==

== ENCOUNTER 2017-12-05 10:49 | Inpatient (IN) | payer MEDICARE, OTHER, MEDICAID ==
[2017-12-05] MEDS: CINACALCET 30 MG TAB (SENSIPAR) PO (09:00)
[2017-12-05] MEDS: NS 1,000 ML IV (11:37)
[2017-12-05 11:39] LABS: VENOUS BASE EXCESS 0.6 (-2.0-2.0); VENOUS HCO3 30.2 MEQ/L (23.0-27.0); VENOUS O2 SATURATION 56.6 % (60.0-80.0); VENOUS PARTIAL PRESSURE O2 34.2 mmHg (30.0-50.0); VENOUS PH 7.253 UNITS (7.330-7.430); VENOUS STANDARD HCO3 23.8 MEQ/L; VENOUS TOTAL CO2 32.4 MEQ/L (24.0-28.0)
[2017-12-05 11:44] LABS: BASO # 0.1 10^3/uL (0.0-0.2); BASO % 0.5 % (0.0-1.0); EOS # 1.1 10^3/uL (0.0-0.50); EOS % 7.4 % (0.0-3.0); HEMATOCRIT 47.2 % (42.0-52.0); HEMOGLOBIN 15.9 g/dl (13.5-17.5); IMMATURE GRANULOCYTE % 0.4 % (0-3.0); LYMPH # 2.3 10^3/uL (1.5-4.5); MEAN CORPUSCULAR HEMOGLOBIN 31.8 pg (27.0-33.0); MEAN CORPUSCULAR HGB CONC 33.7 g/dl (32.0-36.5); MEAN CORPUSCULAR VOLUME 94.4 fl (80.0-96.0); MONO # 0.9 10^3/uL (0.0-0.8); MONO % 5.9 % (0.0-5.0); NEUTROPHILS # 10.7 10^3/uL (1.8-7.7); NEUTROPHILS % 70.8 % (36.0-66.0); PLATELET COUNT, AUTOMATED 146 10^3/uL (150-450); RED CELL DISTRIBUTION WIDTH 14.9 % (11.5-14.5)
[2017-12-05 11:55] LABS: INR 1.11; PROTHROMBIN TIME 14.5 SECONDS (12.4-14.5)
[2017-12-05 11:56] LABS: PARTIAL THROMBOPLASTIN TIME 35.6 SECONDS (26.8-37.9)
[2017-12-05 12:03] LABS: ALBUMIN 3.8 GM/DL (3.2-5.2); ALBUMIN/GLOBULIN RATIO 0.97 (1.00-1.93); ALKALINE PHOSPHATASE 203 U/L (45-117); ALT/SGPT 20 U/L (12-78); AMYLASE 41 U/L (25-115); ANION GAP 12 MEQ/L (8-16); AST/SGOT 18 U/L (7-37); BILIRUBIN,DIRECT 0.2 MG/DL (0.0-0.2); BILIRUBIN,TOTAL 0.7 MG/DL (0.2-1.0); BLOOD UREA NITROGEN 51 MG/DL (7-18); C REACTIVE PROTEIN QUANTITATIV 6.33 MG/DL (0.00-0.30); CARBON DIOXIDE LEVEL 29 MEQ/L (21-32); CHLORIDE LEVEL 97 MEQ/L (98-107); CPK CREATINE PHOSPHOKINASE 91 U/L (39-308); CREATININE FOR GFR 4.31 MG/DL (0.70-1.30); GLOMERULAR FILTRATION RATE 15.1 (>56); POTASSIUM SERUM 4.1 MEQ/L (3.5-5.1); SODIUM LEVEL 138 MEQ/L (136-145); TOTAL PROTEIN 7.7 GM/DL (6.4-8.2); TROPONIN I < 0.02 NG/ML (< 0.10)
[2017-12-05 12:05] LABS: CK-MB VALUE MASS 4.7 NG/ML (<3.6); MB/CK RELATIVE INDEX 5.16 (< OR =4)
[2017-12-05 12:06] LABS: GLUCOSE, FASTING 37 MG/DL (70-100)
[2017-12-05 12:08] LABS: LACTIC ACID SEPSIS PROTOCOL 2.8 MMOL/L (0.4-2.0)
[2017-12-05] MEDS: DEXTROSE 50% 50 ML SYRINGE IV (12:10)
[2017-12-05 13:06] LABS: BEDSIDE GLUCOSE 47 MG/DL (70-105)
[2017-12-05 13:06] LABS: BEDSIDE GLUCOSE 60 MG/DL (70-105)
[2017-12-05 13:06] LABS: BEDSIDE GLUCOSE 42 MG/DL (70-105)
[2017-12-05] MEDS ORDERED: D10W/0.45% SODIUM CHLORIDE 1,000 ML IV (14:15)
[2017-12-05] MEDS: D5W/0.45% SODIUM CHLORIDE 1,000 ML IV ×3 (14:30→22:16)
[2017-12-05] MEDS: CIPROFLOXACIN 200 MG in APPROPRIATE DILUENT 1 EA IV ×2 (15:14→17:00)
[2017-12-05] MEDS ORDERED: ACETAMINOPHEN TAB 650MG DOSE (2X325MG) PO (15:30)
[2017-12-05] MEDS ORDERED: ALBUTEROL SULFATE 2.5 MG/0.5 ML INH NEB SOLN NEB (15:30)
[2017-12-05] MEDS ORDERED: GLUCAGON FOR INJ 1 MG VIAL (J1610) SC (15:30)
[2017-12-05] MEDS ORDERED: NITROGLYCERIN 0.4 MG SUBL TABLET SL (15:30)
[2017-12-05] MEDS ORDERED: MORPHINE 4 MG/ML 1ML VIAL/SYRINGE (J2270) IV (15:30)
[2017-12-05] MEDS ORDERED: GLUCOSE 4 GM CHEW TABLET PO (15:30)
[2017-12-05] MEDS ORDERED: DEXTROSE 50% 50 ML SYRINGE IV (15:30)
[2017-12-05] MEDS: MAGNESIUM OXIDE 400 MG TAB (MAG-OX) PO ×2 (16:00→22:07)
[2017-12-05] MEDS: metroNIDAZOLE 500 MG in APPROPRIATE DILUENT 1 EA IV (16:19)
[2017-12-05 16:26] LABS: BEDSIDE GLUCOSE 61 MG/DL (70-105)
[2017-12-05 16:26] LABS: BEDSIDE GLUCOSE 67 MG/DL (70-105)
[2017-12-05 16:26] LABS: BEDSIDE GLUCOSE 42 MG/DL (70-105)
[2017-12-05] MEDS ORDERED: TORSEMIDE (DEMADEX) 50 MG PER 1/2 TAB PO (17:00)
[2017-12-05] MEDS ORDERED: SPIRONOLACTONE 25 MG TAB PO (17:00)
[2017-12-05 17:28] LABS: BEDSIDE GLUCOSE 55 MG/DL (70-105)
[2017-12-05] MEDS: HumaLOG INSULIN (NovoLOG) PER UNIT SC ×2 (18:45→22:00)
[2017-12-05] MEDS: PANTOPRAZOLE 40MG INJ (PROTONIX) (C9113) IV (19:11)
[2017-12-05] MEDS: HYDROCORTISONE 100 MG/2 ML VIAL (J1720) IV (19:12)
[2017-12-05 19:25] LABS: BEDSIDE GLUCOSE 61 MG/DL (70-105)
[2017-12-05 20:03] LABS: CK-MB VALUE MASS 4.9 NG/ML (<3.6); CPK CREATINE PHOSPHOKINASE 88 U/L (39-308); MB/CK RELATIVE INDEX 5.56 (< OR =4); TROPONIN I < 0.02 NG/ML (< 0.10)
[2017-12-05] MEDS: CARVedilol 6.25 MG TAB PO (21:00)
[2017-12-05] MEDS ORDERED: DULERA INH (21:00)
[2017-12-05] MEDS: ATORVASTATIN 20 MG TAB PO (22:06)
[2017-12-05] MEDS: PREGABALIN 75 MG CAP(LYRICA) PO (22:06)
[2017-12-05] MEDS: MORPHINE 15 MG SA TAB PO (22:07)
[2017-12-05] MEDS: HEPARIN SOD (PORCINE) 5000 UNITS/ML VIAL SC (22:08)
[2017-12-05] MEDS: CILOSTAZOL 100 MG TAB (PLETAL) PO (22:08)
[2017-12-05 22:15] LABS: BEDSIDE GLUCOSE 95 MG/DL (70-105)
[2017-12-05 23:15] LABS: APPEARANCE, URINE CLEAR (CLEAR); BACTERIA, URINE AUTO NEGATIVE (NEGATIVE); BILIRUBIN, URINE AUTO NEGATIVE (NEGATIVE); BLOOD, URINE BLOOD NEGATIVE (NEGATIVE); COLOR, URINE YELLOW (YELLOW); GLUCOSE, URINE (UA) AUTO NEGATIVE (NEGATIVE); KETONE, URINE AUTO NEGATIVE (NEGATIVE); LEUKOCYTE ESTERASE, URINE AUTO NEGATIVE (NEGATIVE); NITRITE, URINE AUTO NEGATIVE (NEGATIVE); PROTEIN, URINE AUTO NEGATIVE (NEGATIVE); RBC, URINE AUTO 2 /HPF (0-3); SPECIFIC GRAVITY URINE AUTO 1.014 (1.002-1.035); SQUAMOUS EPITHELIAL CELL UR AU 0 /HPF (0-6); UROBILINOGEN, URINE AUTO 0.2 mg/dL (0.0-2.0); WBC, URINE AUTO 1 /HPF (0-3)
[2017-12-06] MEDS: ANEXSIA, NORCO 7.5MG/325MG TABLET(HYDROCODONE/APAP) PO (00:21)
[2017-12-06] MEDS: metroNIDAZOLE 500 MG in APPROPRIATE DILUENT 1 EA IV ×4 (00:21→23:20)
[2017-12-06 00:50] LABS: CK-MB VALUE MASS 4.1 NG/ML (<3.6); CPK CREATINE PHOSPHOKINASE 73 U/L (39-308); MB/CK RELATIVE INDEX 5.61 (< OR =4); TROPONIN I < 0.02 NG/ML (< 0.10)
[2017-12-06] MEDS: HumaLOG INSULIN (NovoLOG) PER UNIT SC ×6 (02:18→21:41)
[2017-12-06 02:21] LABS: BEDSIDE GLUCOSE 192 MG/DL (70-105)
[2017-12-06 05:53] LABS: BASO # 0.1 10^3/uL (0.0-0.2); BASO % 0.4 % (0.0-1.0); EOS # 0.5 10^3/uL (0.0-0.50); EOS % 3.4 % (0.0-3.0); HEMATOCRIT 43.6 % (42.0-52.0); HEMOGLOBIN 14.7 g/dl (13.5-17.5); IMMATURE GRANULOCYTE % 0.5 % (0-3.0); LYMPH # 1.9 10^3/uL (1.5-4.5); LYMPH % 14.1 % (24.0-44.0); MEAN CORPUSCULAR HEMOGLOBIN 31.2 pg (27.0-33.0); MEAN CORPUSCULAR HGB CONC 33.7 g/dl (32.0-36.5); MEAN CORPUSCULAR VOLUME 92.6 fl (80.0-96.0); MONO # 0.7 10^3/uL (0.0-0.8); MONO % 5.2 % (0.0-5.0); NEUTROPHILS % 76.4 % (36.0-66.0); PLATELET COUNT, AUTOMATED 136 10^3/uL (150-450); RED BLOOD COUNT 4.71 10^6/uL (4.30-6.10); RED CELL DISTRIBUTION WIDTH 14.6 % (11.5-14.5); WHITE BLOOD COUNT 13.1 10^3/uL (4.0-10.0)
[2017-12-06 06:00] LABS: ANION GAP 11 MEQ/L (8-16); BLOOD UREA NITROGEN 49 MG/DL (7-18); CALCIUM LEVEL 8.4 MG/DL (8.5-10.1); CARBON DIOXIDE LEVEL 23 MEQ/L (21-32); CHLORIDE LEVEL 100 MEQ/L (98-107); CREATININE FOR GFR 3.76 MG/DL (0.70-1.30); GLOMERULAR FILTRATION RATE 17.7 (>56); GLUCOSE, FASTING 223 MG/DL (70-100); MAGNESIUM LEVEL 2.6 MG/DL (1.8-2.4); POTASSIUM SERUM 4.4 MEQ/L (3.5-5.1); SODIUM LEVEL 134 MEQ/L (136-145)
[2017-12-06] MEDS: CILOSTAZOL 100 MG TAB (PLETAL) PO ×2 (06:42→21:41)
[2017-12-06] MEDS: HEPARIN SOD (PORCINE) 5000 UNITS/ML VIAL SC ×3 (06:42→21:42)
[2017-12-06 08:17] LABS: BEDSIDE GLUCOSE 286 MG/DL (70-105)
[2017-12-06] MEDS: LEVEMIR (INSULIN DETEMIR) 1 UNITS/0.01ML SC ×2 (08:34→21:42)
[2017-12-06] MEDS: MAGNESIUM OXIDE 400 MG TAB (MAG-OX) PO (08:35)
[2017-12-06] MEDS: FEBUXOSTAT 40 MG TABLET (ULORIC) PO (08:35)
[2017-12-06] MEDS: CALCITRIOL 0.25 MCG CAP (S0169) PO (08:36)
[2017-12-06] MEDS: oxyBUTYnin *DITROPAN XL* 5 MG TABCR PO (08:36)
[2017-12-06] MEDS: ASPIRIN ENTERIC 325 MG TAB PO (08:36)
[2017-12-06] MEDS: PREGABALIN 75 MG CAP(LYRICA) PO ×2 (08:36→21:37)
[2017-12-06] MEDS: POTASSIUM CHLORIDE 10 MEQ SR TABLET PO (08:36)
[2017-12-06] MEDS: MORPHINE 15 MG SA TAB PO ×2 (08:37→21:41)
[2017-12-06] MEDS: DULoxetine 30 MG CAP (CYMBALTA) PO (08:37)
[2017-12-06] MEDS: MULTIVITAMINS/MINERALS THERAP 1 TAB PO (08:37)
[2017-12-06] MEDS: CARVedilol 6.25 MG TAB PO ×2 (08:38→21:37)
[2017-12-06] MEDS: TAMSULOSIN 0.4 MG CAP PO (08:38)
[2017-12-06] MEDS: FINASTERIDE 5 MG TAB PO (08:38)
[2017-12-06] MEDS ORDERED: SLF 3 ML SYR IV (08:45)
[2017-12-06] MEDS ORDERED: TORSEMIDE (DEMADEX) 50 MG PER 1/2 TAB PO (09:00)
[2017-12-06] MEDS: PANTOPRAZOLE 40MG TAB (PROTONIX) PO (09:00)
[2017-12-06] MEDS ORDERED: predniSONE 5 MG TAB PO (09:00)
[2017-12-06] MEDS: CINACALCET 30 MG TAB (SENSIPAR) PO (09:00)
[2017-12-06 10:35] LABS: BEDSIDE GLUCOSE 332 MG/DL (70-105)
[2017-12-06 13:12] LABS: BEDSIDE GLUCOSE 301 MG/DL (70-105)
[2017-12-06] MEDS: SLF 3 ML SYR IV ×2 (13:46→21:42)
[2017-12-06] MEDS: ONDANSETRON 4MG/2ML VIAL (J2405) IV ×2 (14:37→21:42)
[2017-12-06 17:09] LABS: BEDSIDE GLUCOSE 278 MG/DL (70-105)
[2017-12-06] MEDS: CIPROFLOXACIN 400 MG in APPROPRIATE DILUENT 1 EA IV (17:25)
[2017-12-06 20:56] LABS: BEDSIDE GLUCOSE 235 MG/DL (70-105)
[2017-12-06] MEDS: ATORVASTATIN 20 MG TAB PO (21:37)
[2017-12-07 06:20] LABS: BASO # 0.1 10^3/uL (0.0-0.2); BASO % 0.6 % (0.0-1.0); EOS # 0.7 10^3/uL (0.0-0.50); EOS % 6.3 % (0.0-3.0); HEMATOCRIT 42.6 % (42.0-52.0); HEMOGLOBIN 14.3 g/dl (13.5-17.5); IMMATURE GRANULOCYTE % 0.6 % (0-3.0); LYMPH # 2.4 10^3/uL (1.5-4.5); LYMPH % 20.4 % (24.0-44.0); MEAN CORPUSCULAR HEMOGLOBIN 31.4 pg (27.0-33.0); MEAN CORPUSCULAR HGB CONC 33.6 g/dl (32.0-36.5); MEAN CORPUSCULAR VOLUME 93.4 fl (80.0-96.0); MONO # 0.8 10^3/uL (0.0-0.8); MONO % 6.5 % (0.0-5.0); NEUTROPHILS # 7.6 10^3/uL (1.8-7.7); NEUTROPHILS % 65.6 % (36.0-66.0); PLATELET COUNT, AUTOMATED 114 10^3/uL (150-450); RED BLOOD COUNT 4.56 10^6/uL (4.30-6.10); RED CELL DISTRIBUTION WIDTH 14.6 % (11.5-14.5); WHITE BLOOD COUNT 11.6 10^3/uL (4.0-10.0)
[2017-12-07] MEDS: SLF 3 ML SYR IV (06:36)
[2017-12-07] MEDS: CILOSTAZOL 100 MG TAB (PLETAL) PO (06:36)
[2017-12-07] MEDS: HEPARIN SOD (PORCINE) 5000 UNITS/ML VIAL SC (06:36)
[2017-12-07] MEDS: SARNA LOTION 225 ML BTL TOP (06:37)
[2017-12-07 06:39] LABS: ANION GAP 8 MEQ/L (8-16); BLOOD UREA NITROGEN 49 MG/DL (7-18); CALCIUM LEVEL 8.3 MG/DL (8.5-10.1); CARBON DIOXIDE LEVEL 26 MEQ/L (21-32); CHLORIDE LEVEL 101 MEQ/L (98-107); GLOMERULAR FILTRATION RATE 19.2 (>56); GLUCOSE, FASTING 218 MG/DL (70-100); MAGNESIUM LEVEL 2.5 MG/DL (1.8-2.4); POTASSIUM SERUM 4.2 MEQ/L (3.5-5.1); SODIUM LEVEL 135 MEQ/L (136-145)
[2017-12-07] MEDS: PANTOPRAZOLE 40MG TAB (PROTONIX) PO (08:51)
[2017-12-07] MEDS: FEBUXOSTAT 40 MG TABLET (ULORIC) PO (08:51)
[2017-12-07] MEDS: CALCITRIOL 0.25 MCG CAP (S0169) PO (08:51)
[2017-12-07] MEDS: FINASTERIDE 5 MG TAB PO (08:51)
[2017-12-07] MEDS: POTASSIUM CHLORIDE 10 MEQ SR TABLET PO (08:52)
[2017-12-07] MEDS: DULoxetine 30 MG CAP (CYMBALTA) PO (08:52)
[2017-12-07] MEDS: MULTIVITAMINS/MINERALS THERAP 1 TAB PO (08:52)
[2017-12-07] MEDS: ASPIRIN ENTERIC 325 MG TAB PO (08:52)
[2017-12-07] MEDS: MORPHINE 15 MG SA TAB PO (08:52)
[2017-12-07] MEDS: predniSONE 5 MG TAB PO (08:52)
[2017-12-07] MEDS: TAMSULOSIN 0.4 MG CAP PO (08:52)
[2017-12-07] MEDS: PREGABALIN 75 MG CAP(LYRICA) PO (08:52)
[2017-12-07] MEDS: metroNIDAZOLE 500 MG in APPROPRIATE DILUENT 1 EA IV (08:53)
[2017-12-07] MEDS: CARVedilol 6.25 MG TAB PO (08:53)
[2017-12-07] MEDS: HumaLOG INSULIN (NovoLOG) PER UNIT SC (08:53)
[2017-12-07] MEDS: LEVEMIR (INSULIN DETEMIR) 1 UNITS/0.01ML SC (08:54)
[2017-12-07] MEDS: oxyBUTYnin *DITROPAN XL* 5 MG TABCR PO (09:00)
[2017-12-07] MEDS: TORSEMIDE (DEMADEX) 50 MG PER 1/2 TAB PO (11:05)
[2017-12-07] MEDS: SPIRONOLACTONE 25 MG TAB PO (11:05)
[2017-12-07 11:06] LABS: URIC ACID 7.1 MG/DL (3.5-7.2)
== END 2017-12-07 11:18 | disposition home health service (06) | DRG 392 ==
LOC: M MSPAV 12-06 17:56 → M ED 10:49 → M ED INP 15:23 → M PCU 18:05
PROVIDERS: Hospitalist
DX: K57.92 Diverticulitis of intestine, part unspecified, without perforation or abscess without bleeding (principal); I50.22 Chronic systolic (congestive) heart failure; Z68.42 Body mass index [BMI] 45.0-49.9, adult; N17.9 Acute kidney failure, unspecified; N18.4 Chronic kidney disease, stage 4 (severe); I69.354 Hemiplegia and hemiparesis following cerebral infarction affecting left non-dominant side; I13.0 Hypertensive heart and chronic kidney disease with heart failure and stage 1 through stage 4 chronic kidney disease, or unspecified chronic kidney disease; D50.9 Iron deficiency anemia, unspecified; E16.2 Hypoglycemia, unspecified; E87.8 Other disorders of electrolyte and fluid balance, not elsewhere classified; E11.40 Type 2 diabetes mellitus with diabetic neuropathy, unspecified; M10.9 Gout, unspecified; N40.0 Benign prostatic hyperplasia without lower urinary tract symptoms; E66.01 Morbid (severe) obesity due to excess calories; G47.33 Obstructive sleep apnea (adult) (pediatric); J44.9 Chronic obstructive pulmonary disease, unspecified; Z88.8 Allergy status to other drugs, medicaments and biological substances; Z91.048 Other nonmedicinal substance allergy status; Z79.891 Long term (current) use of opiate analgesic; Z79.52 Long term (current) use of systemic steroids; I25.2 Old myocardial infarction; Z95.810 Presence of automatic (implantable) cardiac defibrillator; Z79.4 Long term (current) use of insulin; Z95.1 Presence of aortocoronary bypass graft; Z95.828 Presence of other vascular implants and grafts

== ENCOUNTER 2017-12-18 11:00 | Emergency (ER) | payer MEDICARE, MEDICAID, OTHER ==
[2017-12-18] MEDS: DEXTROSE 50% 50 ML SYRINGE IV (11:50)
[2017-12-18 12:49] LABS: HEMATOCRIT 41.2 % (42.0-52.0); HEMOGLOBIN 13.6 g/dl (13.5-17.5); MEAN CORPUSCULAR HEMOGLOBIN 31.6 pg (27.0-33.0); MEAN CORPUSCULAR VOLUME 95.8 fl (80.0-96.0); RED CELL DISTRIBUTION WIDTH 14.7 % (11.5-14.5); VENOUS BASE EXCESS -1.7 (-2.0-2.0); VENOUS HCO3 24.3 MEQ/L (23.0-27.0); VENOUS O2 SATURATION 92.6 % (60.0-80.0); VENOUS PARTIAL PRESSURE CO2 45.6 mmHg (38.0-50.0); VENOUS PARTIAL PRESSURE O2 68.1 mmHg (30.0-50.0); VENOUS PH 7.344 UNITS (7.330-7.430); VENOUS STANDARD HCO3 22.9 MEQ/L; VENOUS TOTAL CO2 25.7 MEQ/L (24.0-28.0); WHITE BLOOD COUNT 10.1 10^3/uL (4.0-10.0)
[2017-12-18 12:54] LABS: PLATELET COUNT, AUTOMATED 99 10^3/uL (150-450); POSITIVE MORPH POS FLAG
[2017-12-18 12:55] LABS: IMMATURE PLATELET FRACTION % 16.1 % (0.0-10.9); PLATELET F 94
[2017-12-18 13:12] LABS: BEDSIDE GLUCOSE 48 MG/DL (70-105)
[2017-12-18 13:12] LABS: ANION GAP 8 MEQ/L (8-16); BLOOD UREA NITROGEN 38 MG/DL (7-18); CALCIUM LEVEL 8.2 MG/DL (8.5-10.1); CARBON DIOXIDE LEVEL 26 MEQ/L (21-32); CHLORIDE LEVEL 108 MEQ/L (98-107); GLUCOSE, FASTING 51 MG/DL (70-100); POTASSIUM SERUM 4.3 MEQ/L (3.5-5.1); SODIUM LEVEL 142 MEQ/L (136-145)
[2017-12-18 13:12] LABS: BEDSIDE GLUCOSE 96 MG/DL (70-105)
[2017-12-18 16:46] LABS: BEDSIDE GLUCOSE 94 MG/DL (70-105)
[2017-12-18 16:46] LABS: BEDSIDE GLUCOSE 134 MG/DL (70-105)
[2017-12-18 16:47] LABS: BEDSIDE GLUCOSE 95 MG/DL (70-105)
[2017-12-18 17:00] LABS: BEDSIDE GLUCOSE 100 MG/DL (70-105)
== END 2017-12-18 17:45 | disposition home or self-care (01) ==
LOC: M ED 11:00
DX: E11.649 Type 2 diabetes mellitus with hypoglycemia without coma (principal); I13.0 Hypertensive heart and chronic kidney disease with heart failure and stage 1 through stage 4 chronic kidney disease, or unspecified chronic kidney disease; N28.9 Disorder of kidney and ureter, unspecified; I25.10 Atherosclerotic heart disease of native coronary artery without angina pectoris; E66.9 Obesity, unspecified; Z88.5 Allergy status to narcotic agent; Z88.8 Allergy status to other drugs, medicaments and biological substances; Z91.048 Other nonmedicinal substance allergy status; Z79.899 Other long term (current) drug therapy; Z79.4 Long term (current) use of insulin; Z79.82 Long term (current) use of aspirin; Z79.891 Long term (current) use of opiate analgesic
CPT/HCPCS: 82803

== ENCOUNTER → 2017-12-19 | Outpatient (REF) | payer MEDICARE, OTHER, MEDICAID ==
[2017-12-19 10:51] LABS: ESTIMATED AVERAGE GLUCOSE 151 MG/DL (60-110); HEMOGLOBIN A1c 6.9 %
== END ==
LOC: SKLABADC 09:09
DX: E11.59 Type 2 diabetes mellitus with other circulatory complications (principal); E11.22 Type 2 diabetes mellitus with diabetic chronic kidney disease
CPT/HCPCS: 83036

== ENCOUNTER → 2018-01-02 | Outpatient (REF) | payer MEDICARE, OTHER, MEDICAID ==
[2018-01-10 00:07] LABS: HLA-B27 Negative (.)
== END ==
LOC: SKLABADC 10:34
DX: G89.4 Chronic pain syndrome (principal)
CPT/HCPCS: 36415

== ENCOUNTER → 2018-01-09 | Outpatient (CLI) | payer MEDICARE, MEDICAID, OTHER | LOC: M PAIN 11:45 | DX: E11.42 Type 2 diabetes mellitus with diabetic polyneuropathy (principal); I25.10 Atherosclerotic heart disease of native coronary artery without angina pectoris; I25.2 Old myocardial infarction; I50.9 Heart failure, unspecified; E11.22 Type 2 diabetes mellitus with diabetic chronic kidney disease; I13.0 Hypertensive heart and chronic kidney disease with heart failure and stage 1 through stage 4 chronic kidney disease, or unspecified chronic kidney disease; M54.2 Cervicalgia; M54.5 Low back pain; H40.9 Unspecified glaucoma; R16.1 Splenomegaly, not elsewhere classified; D50.9 Iron deficiency anemia, unspecified; N40.0 Benign prostatic hyperplasia without lower urinary tract symptoms; N18.4 Chronic kidney disease, stage 4 (severe); H54.8 Legal blindness, as defined in USA; H35.30 Unspecified macular degeneration; K21.9 Gastro-esophageal reflux disease without esophagitis; M10.9 Gout, unspecified; I25.5 Ischemic cardiomyopathy; R56.9 Unspecified convulsions; Z95.2 Presence of prosthetic heart valve; Z95.810 Presence of automatic (implantable) cardiac defibrillator; Z87.891 Personal history of nicotine dependence; Z79.82 Long term (current) use of aspirin; Z79.4 Long term (current) use of insulin; Z79.891 Long term (current) use of opiate analgesic; Z79.899 Other long term (current) drug therapy; Z88.8 Allergy status to other drugs, medicaments and biological substances; Z91.048 Other nonmedicinal substance allergy status | CPT/HCPCS: G0463 ==

== ENCOUNTER → 2018-01-11 | Outpatient (REF) | payer MEDICARE, MEDICAID, OTHER ==
[2018-01-11 10:42] LABS: ANION GAP 10 MEQ/L (8-16); BLOOD UREA NITROGEN 38 MG/DL (7-18); CALCIUM LEVEL 8.2 MG/DL (8.5-10.1); CARBON DIOXIDE LEVEL 27 MEQ/L (21-32); CHLORIDE LEVEL 105 MEQ/L (98-107); CREATININE FOR GFR 2.93 MG/DL (0.70-1.30); GLOMERULAR FILTRATION RATE 23.5 (>56); GLUCOSE, FASTING 100 MG/DL (70-100); POTASSIUM SERUM 4.1 MEQ/L (3.5-5.1); SODIUM LEVEL 142 MEQ/L (136-145)
[2018-01-11 10:50] LABS: ESTIMATED AVERAGE GLUCOSE 151 MG/DL (60-110); HEMOGLOBIN A1c 6.9 %
== END ==
LOC: SKLABADC 08:49
DX: E11.65 Type 2 diabetes mellitus with hyperglycemia (principal)
CPT/HCPCS: 83036

== ENCOUNTER 2018-02-22 11:32 | Inpatient (IN) | payer MEDICARE, MEDICAID, OTHER ==
[2018-02-22] MEDS: FEBUXOSTAT 40 MG TABLET (ULORIC) PO (09:00)
[2018-02-22 13:36] LABS: BASO % 0.1 % (0.0-1.0); EOS # 0.1 10^3/uL (0.0-0.50); EOS % 1.7 % (0.0-3.0); HEMATOCRIT 42.1 % (42.0-52.0); HEMOGLOBIN 14.1 g/dl (13.5-17.5); IMMATURE GRANULOCYTE % 0.3 % (0-3.0); LYMPH # 1.2 10^3/uL (1.5-4.5); LYMPH % 17.2 % (24.0-44.0); MEAN CORPUSCULAR HEMOGLOBIN 30.5 pg (27.0-33.0); MEAN CORPUSCULAR HGB CONC 33.5 g/dl (32.0-36.5); MEAN CORPUSCULAR VOLUME 90.9 fl (80.0-96.0); MONO # 0.6 10^3/uL (0.0-0.8); MONO % 8.2 % (0.0-5.0); NEUTROPHILS # 5.2 10^3/uL (1.8-7.7); NEUTROPHILS % 72.5 % (36.0-66.0); RED BLOOD COUNT 4.63 10^6/uL (4.30-6.10); RED CELL DISTRIBUTION WIDTH 15.2 % (11.5-14.5); WHITE BLOOD COUNT 7.2 10^3/uL (4.0-10.0)
[2018-02-22 13:38] LABS: IMMATURE PLATELET FRACTION % 18.8 % (0.0-10.9); PLATELET COUNT, AUTOMATED 77 10^3/uL (150-450)
[2018-02-22 13:53] LABS: ALBUMIN 3.4 GM/DL (3.2-5.2); ALBUMIN/GLOBULIN RATIO 0.94 (1.00-1.93); ALKALINE PHOSPHATASE 200 U/L (45-117); ALT/SGPT 28 U/L (12-78); ANION GAP 8 MEQ/L (8-16); AST/SGOT 22 U/L (7-37); BILIRUBIN,DIRECT 0.4 MG/DL (0.0-0.2); BILIRUBIN,TOTAL 1.3 MG/DL (0.2-1.0); BLOOD UREA NITROGEN 77 MG/DL (7-18); CALCIUM LEVEL 8.3 MG/DL (8.5-10.1); CARBON DIOXIDE LEVEL 31 MEQ/L (21-32); CHLORIDE LEVEL 90 MEQ/L (98-107); CK-MB VALUE MASS 3.3 NG/ML (<3.6); CPK CREATINE PHOSPHOKINASE 231 U/L (39-308); GLUCOSE, FASTING 350 MG/DL (70-100); MB/CK RELATIVE INDEX 1.42 (< OR =4); SODIUM LEVEL 129 MEQ/L (136-145); TROPONIN I < 0.02 NG/ML (< 0.10)
[2018-02-22 13:59] LABS: POTASSIUM SERUM 5.4 MEQ/L (3.5-5.1)
[2018-02-22] MEDS: NS 1,000 ML IV ×2 (14:32→19:02)
[2018-02-22] MEDS: MIDODRINE 2.5 MG TAB PO (16:00)
[2018-02-22] MEDS: MAGNESIUM OXIDE 400 MG TAB (MAG-OX) PO ×2 (16:00→20:46)
[2018-02-22] MEDS ORDERED: ONDANSETRON 4MG/2ML VIAL (J2405) IV (16:15)
[2018-02-22] MEDS ORDERED: IPRATROPIUM 0.5MG/ALBUTEROL 2.5MG INH SOL UD 3ML (DUONEB)(J7620) NEB (16:15)
[2018-02-22] MEDS ORDERED: PANTOPRAZOLE 20 MG TAB PO (16:15)
[2018-02-22] MEDS ORDERED: SENNA 8.6 MG TAB (SENOKOT) PO (16:15)
[2018-02-22] MEDS ORDERED: DOCUSATE SODIUM 100 MG CAP PO (16:30)
[2018-02-22] MEDS ORDERED: ALBUTEROL 90 MCG/ACT 8GM HFA INHALER INH (16:30)
[2018-02-22] MEDS ORDERED: MIRALAX *UNIT DOSE* 17GM PACKET PO (17:30)
[2018-02-22] MEDS: CILOSTAZOL 100 MG TAB (PLETAL) PO (17:30)
[2018-02-22] MEDS ORDERED: GLUCAGON FOR INJ 1 MG VIAL (J1610) SC (18:30)
[2018-02-22] MEDS ORDERED: DEXTROSE 50% 50 ML SYRINGE IV (18:30)
[2018-02-22] MEDS ORDERED: GLUCOSE 4 GM CHEW TABLET PO (18:30)
[2018-02-22 18:47] LABS: BEDSIDE GLUCOSE 355 MG/DL (70-105)
[2018-02-22] MEDS: predniSONE 5 MG TAB PO (18:59)
[2018-02-22] MEDS: FINASTERIDE 5 MG TAB PO (18:59)
[2018-02-22] MEDS: MULTIVITAMINS/MINERALS THERAP 1 TAB PO (18:59)
[2018-02-22] MEDS: oxyBUTYnin *DITROPAN XL* 5 MG TABCR PO (18:59)
[2018-02-22] MEDS: BISACODYL 5 MG TAB PO (19:00)
[2018-02-22] MEDS: DULoxetine 30 MG CAP (CYMBALTA) PO (19:01)
[2018-02-22] MEDS: CALCITRIOL 0.25 MCG CAP (S0169) PO (19:01)
[2018-02-22] MEDS: ASPIRIN ENTERIC 325 MG TAB PO (19:01)
[2018-02-22] MEDS: FLUCONAZOLE 100 MG TAB PO (19:02)
[2018-02-22] MEDS: VANCOMYCIN HCL 1,000 MG, VIAL MATE ADAPTER 1 EACH in D5W 250 ML IV (19:02)
[2018-02-22] MEDS: SYMBICORT 160/4.5MCG INHALER 6GM INH (19:46)
[2018-02-22 20:15] LABS: BEDSIDE GLUCOSE 363 MG/DL (70-105)
[2018-02-22 20:30] LABS: THYROID STIMULATING HORMONE 0.599 uIU/ML (0.358-3.740)
[2018-02-22] MEDS: TAMSULOSIN 0.4 MG CAP PO (20:45)
[2018-02-22] MEDS: ATORVASTATIN 20 MG TAB PO (20:45)
[2018-02-22] MEDS: SENOKOT S TAB PO (20:45)
[2018-02-22] MEDS: PREGABALIN 75 MG CAP(LYRICA) PO (20:45)
[2018-02-22] MEDS: CARVedilol 6.25 MG TAB PO (20:47)
[2018-02-22] MEDS: FERROUS SULFATE 325MG TAB PO (20:47)
[2018-02-22] MEDS: NYSTATIN 100,000 UNITS/GM TOPICAL PWD 15 GM TOP (20:48)
[2018-02-22] MEDS: MORPHINE 15 MG SA TAB PO (20:48)
[2018-02-22] MEDS: HUMULIN R U-500 KWIKPEN 500UNITS/ML 3ML SYRINGE (J1815 PER 5UNITS) SC (20:49)
[2018-02-22] MEDS: LEVEMIR (INSULIN DETEMIR) 1 UNITS/0.01ML SC (20:50)
[2018-02-22] MEDS ORDERED: LINEZOLID 600 MG in APPROPRIATE DILUENT 1 EA IV (21:00)
[2018-02-23] MEDS: NS 1,000 ML IV ×2 (05:23→17:46)
[2018-02-23 06:43] LABS: BASO % 0.2 % (0.0-1.0); HEMATOCRIT 35.8 % (42.0-52.0); HEMOGLOBIN 12.2 g/dl (13.5-17.5); IMMATURE GRANULOCYTE % 0.2 % (0-3.0); LYMPH # 0.9 10^3/uL (1.5-4.5); LYMPH % 21.4 % (24.0-44.0); MEAN CORPUSCULAR HEMOGLOBIN 30.2 pg (27.0-33.0); MEAN CORPUSCULAR HGB CONC 34.1 g/dl (32.0-36.5); MEAN CORPUSCULAR VOLUME 88.6 fl (80.0-96.0); MONO # 0.3 10^3/uL (0.0-0.8); MONO % 7.1 % (0.0-5.0); NEUTROPHILS # 2.9 10^3/uL (1.8-7.7); NEUTROPHILS % 70.1 % (36.0-66.0); RED BLOOD COUNT 4.04 10^6/uL (4.30-6.10); RED CELL DISTRIBUTION WIDTH 15.6 % (11.5-14.5); WHITE BLOOD COUNT 4.2 10^3/uL (4.0-10.0)
[2018-02-23 06:47] LABS: ALBUMIN 2.9 GM/DL (3.2-5.2); ANION GAP 9 MEQ/L (8-16); BLOOD UREA NITROGEN 65 MG/DL (7-18); CALCIUM LEVEL 8.3 MG/DL (8.5-10.1); CARBON DIOXIDE LEVEL 29 MEQ/L (21-32); CHLORIDE LEVEL 97 MEQ/L (98-107); CREATININE FOR GFR 3.09 MG/DL (0.70-1.30); GLOMERULAR FILTRATION RATE 22.1 (>56); GLUCOSE, FASTING 271 MG/DL (70-100); MAGNESIUM LEVEL 3.4 MG/DL (1.8-2.4); POTASSIUM SERUM 4.3 MEQ/L (3.5-5.1); SODIUM LEVEL 135 MEQ/L (136-145)
[2018-02-23 06:51] LABS: PLATELET COUNT, AUTOMATED 65 10^3/uL (150-450); POSITIVE MORPH POS FLAG
[2018-02-23] MEDS: SYMBICORT 160/4.5MCG INHALER 6GM INH ×2 (07:13→18:37)
[2018-02-23] MEDS: MIDODRINE 2.5 MG TAB PO ×3 (08:00→15:07)
[2018-02-23] MEDS ORDERED: PANTOPRAZOLE 20 MG TAB PO (09:00)
[2018-02-23] MEDS: CINACALCET 30 MG TAB (SENSIPAR) PO (09:56)
[2018-02-23] MEDS: ASPIRIN ENTERIC 325 MG TAB PO (09:56)
[2018-02-23] MEDS: MULTIVITAMINS/MINERALS THERAP 1 TAB PO (09:57)
[2018-02-23] MEDS: FLUCONAZOLE 100 MG TAB PO (09:57)
[2018-02-23] MEDS: PREGABALIN 75 MG CAP(LYRICA) PO ×2 (09:57→20:30)
[2018-02-23] MEDS: FERROUS SULFATE 325MG TAB PO ×2 (09:57→20:30)
[2018-02-23] MEDS: CALCITRIOL 0.25 MCG CAP (S0169) PO (09:57)
[2018-02-23] MEDS: SENOKOT S TAB PO ×2 (09:57→20:30)
[2018-02-23] MEDS: DULoxetine 30 MG CAP (CYMBALTA) PO (09:57)
[2018-02-23] MEDS: FINASTERIDE 5 MG TAB PO (09:57)
[2018-02-23] MEDS: PANTOPRAZOLE 40MG TAB (PROTONIX) PO (09:57)
[2018-02-23] MEDS: predniSONE 5 MG TAB PO (09:58)
[2018-02-23] MEDS: MORPHINE 15 MG SA TAB PO ×2 (09:58→20:29)
[2018-02-23] MEDS: BISACODYL 5 MG TAB PO (09:58)
[2018-02-23] MEDS: CARVedilol 6.25 MG TAB PO ×2 (09:59→20:30)
[2018-02-23] MEDS: HUMULIN R U-500 KWIKPEN 500UNITS/ML 3ML SYRINGE (J1815 PER 5UNITS) SC ×3 (09:59→20:28)
[2018-02-23 11:33] LABS: BEDSIDE GLUCOSE 260 MG/DL (70-105)
[2018-02-23] MEDS: CILOSTAZOL 100 MG TAB (PLETAL) PO ×2 (12:33→17:46)
[2018-02-23] MEDS: FEBUXOSTAT 40 MG TABLET (ULORIC) PO (12:34)
[2018-02-23] MEDS: oxyBUTYnin *DITROPAN XL* 5 MG TABCR PO (12:37)
[2018-02-23] MEDS: NYSTATIN 100,000 UNITS/GM TOPICAL PWD 15 GM TOP ×2 (12:38→20:31)
[2018-02-23] MEDS: NORCO, ANEXSIA 5/325MG TABLET (HYDROcodone/ACETAMINOPHEN) PO (15:09)
[2018-02-23] MEDS ORDERED: LEVALBUTEROL 1.25 MG/0.5 ML CONCENTRATE NEB INH (16:30)
[2018-02-23 16:34] LABS: BEDSIDE GLUCOSE 149 MG/DL (70-105)
[2018-02-23] MEDS: VANCOMYCIN HCL 1,000 MG, VIAL MATE ADAPTER 1 EACH in D5W 250 ML IV (17:46)
[2018-02-23 20:06] LABS: BEDSIDE GLUCOSE 200 MG/DL (70-105)
[2018-02-23] MEDS: LEVEMIR (INSULIN DETEMIR) 1 UNITS/0.01ML SC (20:29)
[2018-02-23] MEDS: TAMSULOSIN 0.4 MG CAP PO (20:30)
[2018-02-23] MEDS: ATORVASTATIN 20 MG TAB PO (20:30)
[2018-02-24 06:11] LABS: BASO % 0.8 % (0.0-1.0); EOS # 0.1 10^3/uL (0.0-0.50); EOS % 1.9 % (0.0-3.0); HEMATOCRIT 35.9 % (42.0-52.0); HEMOGLOBIN 11.7 g/dl (13.5-17.5); IMMATURE GRANULOCYTE % 0.5 % (0-3.0); LYMPH # 1.4 10^3/uL (1.5-4.5); LYMPH % 36.8 % (24.0-44.0); MEAN CORPUSCULAR HEMOGLOBIN 30.2 pg (27.0-33.0); MEAN CORPUSCULAR HGB CONC 32.6 g/dl (32.0-36.5); MEAN CORPUSCULAR VOLUME 92.8 fl (80.0-96.0); MONO # 0.4 10^3/uL (0.0-0.8); MONO % 11.2 % (0.0-5.0); NEUTROPHILS # 1.8 10^3/uL (1.8-7.7); NEUTROPHILS % 48.8 % (36.0-66.0); RED BLOOD COUNT 3.87 10^6/uL (4.30-6.10); RED CELL DISTRIBUTION WIDTH 15.5 % (11.5-14.5); WHITE BLOOD COUNT 3.8 10^3/uL (4.0-10.0)
[2018-02-24 06:21] LABS: ALBUMIN 2.7 GM/DL (3.2-5.2); ANION GAP 10 MEQ/L (8-16); BLOOD UREA NITROGEN 56 MG/DL (7-18); CALCIUM LEVEL 7.8 MG/DL (8.5-10.1); CARBON DIOXIDE LEVEL 27 MEQ/L (21-32); CHLORIDE LEVEL 103 MEQ/L (98-107); CREATININE FOR GFR 2.68 MG/DL (0.70-1.30); GLOMERULAR FILTRATION RATE 26.1 (>56); GLUCOSE, FASTING 210 MG/DL (70-100); MAGNESIUM LEVEL 2.7 MG/DL (1.8-2.4); PHOSPHORUS LEVEL 3.8 MG/DL (2.5-4.9); POTASSIUM SERUM 3.9 MEQ/L (3.5-5.1); SODIUM LEVEL 140 MEQ/L (136-145)
[2018-02-24 06:33] LABS: PLATELET COUNT, AUTOMATED 61 10^3/uL (150-450)
[2018-02-24 06:34] LABS: IMMATURE PLATELET FRACTION % 13.6 % (0.0-10.9)
[2018-02-24] MEDS: SYMBICORT 160/4.5MCG INHALER 6GM INH ×2 (07:18→20:41)
[2018-02-24] MEDS: NS 1,000 ML IV (08:01)
[2018-02-24] MEDS: FERROUS SULFATE 325MG TAB PO ×2 (08:02→20:38)
[2018-02-24] MEDS: HUMULIN R U-500 KWIKPEN 500UNITS/ML 3ML SYRINGE (J1815 PER 5UNITS) SC ×4 (08:02→20:36)
[2018-02-24] MEDS: SENOKOT S TAB PO (08:02)
[2018-02-24] MEDS: PREGABALIN 75 MG CAP(LYRICA) PO ×2 (08:03→20:38)
[2018-02-24] MEDS: DULoxetine 30 MG CAP (CYMBALTA) PO (08:03)
[2018-02-24] MEDS: FEBUXOSTAT 40 MG TABLET (ULORIC) PO (08:03)
[2018-02-24] MEDS: oxyBUTYnin *DITROPAN XL* 5 MG TABCR PO (08:03)
[2018-02-24] MEDS: BISACODYL 5 MG TAB PO (08:03)
[2018-02-24] MEDS: MORPHINE 15 MG SA TAB PO ×2 (08:04→20:38)
[2018-02-24] MEDS: FLUCONAZOLE 100 MG TAB PO (08:04)
[2018-02-24] MEDS: PANTOPRAZOLE 40MG TAB (PROTONIX) PO (08:05)
[2018-02-24] MEDS: predniSONE 5 MG TAB PO (08:05)
[2018-02-24] MEDS: FINASTERIDE 5 MG TAB PO (08:05)
[2018-02-24] MEDS: CILOSTAZOL 100 MG TAB (PLETAL) PO ×3 (08:05→16:41)
[2018-02-24] MEDS: ASPIRIN ENTERIC 325 MG TAB PO (08:05)
[2018-02-24] MEDS: MIDODRINE 2.5 MG TAB PO ×3 (08:05→16:41)
[2018-02-24] MEDS: CALCITRIOL 0.25 MCG CAP (S0169) PO (08:05)
[2018-02-24] MEDS: MULTIVITAMINS/MINERALS THERAP 1 TAB PO (08:05)
[2018-02-24] MEDS: CARVedilol 6.25 MG TAB PO ×2 (08:12→20:38)
[2018-02-24] MEDS: NYSTATIN 100,000 UNITS/GM TOPICAL PWD 15 GM TOP ×2 (08:14→20:29)
[2018-02-24 11:52] LABS: BEDSIDE GLUCOSE 398 MG/DL (70-105)
[2018-02-24] MEDS: LACTULOSE 20 GM/30 ML SYRUP UD PO ×3 (12:49→20:29)
[2018-02-24 16:35] LABS: BEDSIDE GLUCOSE 482 MG/DL (70-105)
[2018-02-24] MEDS ORDERED: PEN NEEDLE (USE WITH HUMULIN U-500 INSULIN PEN) XX (17:00)
[2018-02-24 17:23] LABS: VANCOMYCIN LEVEL TROUGH 12.8 UG/ML (10.0-20.0)
[2018-02-24] MEDS: VANCOMYCIN HCL 1,000 MG, VIAL MATE ADAPTER 1 EACH in D5W 250 ML IV (17:57)
[2018-02-24 19:09] LABS: BEDSIDE GLUCOSE 442 MG/DL (70-105)
[2018-02-24] MEDS: BISACODYL 10 MG SUPP PR (20:28)
[2018-02-24] MEDS: LEVEMIR (INSULIN DETEMIR) 1 UNITS/0.01ML SC (20:37)
[2018-02-24] MEDS: TAMSULOSIN 0.4 MG CAP PO (20:37)
[2018-02-24] MEDS: ATORVASTATIN 20 MG TAB PO (20:37)
[2018-02-24 20:39] LABS: BEDSIDE GLUCOSE 419 MG/DL (70-105)
[2018-02-25] MEDS: LACTULOSE 20 GM/30 ML SYRUP UD PO ×2 (05:13→11:41)
[2018-02-25 06:02] LABS: BASO % 0.8 % (0.0-1.0); EOS # 0.1 10^3/uL (0.0-0.50); HEMATOCRIT 36.3 % (42.0-52.0); HEMOGLOBIN 11.9 g/dl (13.5-17.5); IMMATURE GRANULOCYTE % 1.3 % (0-3.0); LYMPH # 1.4 10^3/uL (1.5-4.5); MEAN CORPUSCULAR HEMOGLOBIN 30.2 pg (27.0-33.0); MEAN CORPUSCULAR HGB CONC 32.8 g/dl (32.0-36.5); MEAN CORPUSCULAR VOLUME 92.1 fl (80.0-96.0); MONO # 0.4 10^3/uL (0.0-0.8); NEUTROPHILS % 50.9 % (36.0-66.0); RED BLOOD COUNT 3.94 10^6/uL (4.30-6.10); RED CELL DISTRIBUTION WIDTH 15.3 % (11.5-14.5); WHITE BLOOD COUNT 3.9 10^3/uL (4.0-10.0)
[2018-02-25 06:03] LABS: PLATELET COUNT, AUTOMATED 66 10^3/uL (150-450)
[2018-02-25 06:25] LABS: ALBUMIN 2.8 GM/DL (3.2-5.2); ANION GAP 8 MEQ/L (8-16); BLOOD UREA NITROGEN 45 MG/DL (7-18); CALCIUM LEVEL 8.7 MG/DL (8.5-10.1); CARBON DIOXIDE LEVEL 27 MEQ/L (21-32); CHLORIDE LEVEL 107 MEQ/L (98-107); CREATININE FOR GFR 2.37 MG/DL (0.70-1.30); GLOMERULAR FILTRATION RATE 30.1 (>56); GLUCOSE, FASTING 144 MG/DL (70-100); MAGNESIUM LEVEL 2.6 MG/DL (1.8-2.4); PHOSPHORUS LEVEL 3.5 MG/DL (2.5-4.9); POTASSIUM SERUM 3.8 MEQ/L (3.5-5.1); SODIUM LEVEL 142 MEQ/L (136-145)
[2018-02-25] MEDS: SYMBICORT 160/4.5MCG INHALER 6GM INH ×2 (07:57→20:06)
[2018-02-25] MEDS: HUMULIN R U-500 KWIKPEN 500UNITS/ML 3ML SYRINGE (J1815 PER 5UNITS) SC ×3 (08:10→21:19)
[2018-02-25] MEDS: CILOSTAZOL 100 MG TAB (PLETAL) PO ×2 (08:11→16:54)
[2018-02-25] MEDS: PANTOPRAZOLE 40MG TAB (PROTONIX) PO (08:11)
[2018-02-25] MEDS: AUGMENTIN 875 MG TAB PO ×2 (08:11→21:11)
[2018-02-25] MEDS: oxyBUTYnin *DITROPAN XL* 5 MG TABCR PO (08:11)
[2018-02-25] MEDS: MIDODRINE 2.5 MG TAB PO ×3 (08:11→16:55)
[2018-02-25] MEDS: MULTIVITAMINS/MINERALS THERAP 1 TAB PO (08:11)
[2018-02-25] MEDS: FLUCONAZOLE 100 MG TAB PO (08:11)
[2018-02-25] MEDS: CALCITRIOL 0.25 MCG CAP (S0169) PO (08:11)
[2018-02-25] MEDS: FEBUXOSTAT 40 MG TABLET (ULORIC) PO (08:11)
[2018-02-25] MEDS: ASPIRIN ENTERIC 325 MG TAB PO (08:12)
[2018-02-25] MEDS: PREGABALIN 75 MG CAP(LYRICA) PO ×2 (08:12→21:11)
[2018-02-25] MEDS: CARVedilol 6.25 MG TAB PO ×2 (08:12→21:13)
[2018-02-25] MEDS: predniSONE 5 MG TAB PO (08:12)
[2018-02-25] MEDS: FERROUS SULFATE 325MG TAB PO ×2 (08:12→21:11)
[2018-02-25] MEDS: FINASTERIDE 5 MG TAB PO (08:12)
[2018-02-25] MEDS: DULoxetine 30 MG CAP (CYMBALTA) PO (08:12)
[2018-02-25] MEDS: MORPHINE 15 MG SA TAB PO ×2 (08:13→21:15)
[2018-02-25] MEDS: BISACODYL 10 MG SUPP PR (08:14)
[2018-02-25] MEDS: NYSTATIN 100,000 UNITS/GM TOPICAL PWD 15 GM TOP ×2 (08:14→21:20)
[2018-02-25 11:28] LABS: BEDSIDE GLUCOSE 154 MG/DL (70-105)
[2018-02-25] MEDS ORDERED: LACTULOSE 20 GM/30 ML SYRUP UD PO (12:00)
[2018-02-25] MEDS ORDERED: BISACODYL 10 MG SUPP PR (12:00)
[2018-02-25] MEDS: PEN NEEDLE (USE WITH HUMULIN U-500 INSULIN PEN) XX (12:25)
[2018-02-25 16:50] LABS: BEDSIDE GLUCOSE 158 MG/DL (70-105)
[2018-02-25] MEDS: TORSEMIDE (DEMADEX) 50 MG PER 1/2 TAB PO (16:54)
[2018-02-25 19:54] LABS: BEDSIDE GLUCOSE 202 MG/DL (70-105)
[2018-02-25] MEDS: TAMSULOSIN 0.4 MG CAP PO (21:11)
[2018-02-25] MEDS: ATORVASTATIN 20 MG TAB PO (21:12)
[2018-02-25] MEDS: LEVEMIR (INSULIN DETEMIR) 1 UNITS/0.01ML SC (21:19)
[2018-02-26 06:38] LABS: BASO % 0.9 % (0.0-1.0); EOS # 0.1 10^3/uL (0.0-0.50); EOS % 2.4 % (0.0-3.0); HEMATOCRIT 41.6 % (42.0-52.0); HEMOGLOBIN 13.5 g/dl (13.5-17.5); IMMATURE GRANULOCYTE % 1.7 % (0-3.0); LYMPH # 1.7 10^3/uL (1.5-4.5); LYMPH % 37.4 % (24.0-44.0); MEAN CORPUSCULAR HEMOGLOBIN 29.5 pg (27.0-33.0); MEAN CORPUSCULAR HGB CONC 32.5 g/dl (32.0-36.5); MONO # 0.4 10^3/uL (0.0-0.8); MONO % 7.7 % (0.0-5.0); NEUTROPHILS # 2.3 10^3/uL (1.8-7.7); NEUTROPHILS % 49.9 % (36.0-66.0); RED BLOOD COUNT 4.57 10^6/uL (4.30-6.10); RED CELL DISTRIBUTION WIDTH 15.5 % (11.5-14.5); WHITE BLOOD COUNT 4.7 10^3/uL (4.0-10.0)
[2018-02-26 06:43] LABS: IMMATURE PLATELET FRACTION % 14.1 % (0.0-10.9); PLATELET COUNT, AUTOMATED 68 10^3/uL (150-450)
[2018-02-26 06:58] LABS: ALBUMIN 3.2 GM/DL (3.2-5.2); ANION GAP 10 MEQ/L (8-16); BLOOD UREA NITROGEN 39 MG/DL (7-18); CARBON DIOXIDE LEVEL 26 MEQ/L (21-32); CHLORIDE LEVEL 106 MEQ/L (98-107); CREATININE FOR GFR 2.47 MG/DL (0.70-1.30); GLOMERULAR FILTRATION RATE 28.7 (>56); GLUCOSE, FASTING 225 MG/DL (70-100); MAGNESIUM LEVEL 2.1 MG/DL (1.8-2.4); POTASSIUM SERUM 4.2 MEQ/L (3.5-5.1); SODIUM LEVEL 142 MEQ/L (136-145)
[2018-02-26] MEDS: SYMBICORT 160/4.5MCG INHALER 6GM INH (07:09)
[2018-02-26] MEDS: CILOSTAZOL 100 MG TAB (PLETAL) PO ×2 (07:30→12:41)
[2018-02-26] MEDS: MIDODRINE 2.5 MG TAB PO ×2 (08:00→12:39)
[2018-02-26] MEDS: PEN NEEDLE (USE WITH HUMULIN U-500 INSULIN PEN) XX (08:26)
[2018-02-26] MEDS: HUMULIN R U-500 KWIKPEN 500UNITS/ML 3ML SYRINGE (J1815 PER 5UNITS) SC ×2 (08:27→12:00)
[2018-02-26 12:30] LABS: BEDSIDE GLUCOSE 161 MG/DL (70-105)
[2018-02-26] MEDS: CALCITRIOL 0.25 MCG CAP (S0169) PO (12:37)
[2018-02-26] MEDS: ASPIRIN ENTERIC 325 MG TAB PO (12:37)
[2018-02-26] MEDS: FERROUS SULFATE 325MG TAB PO (12:37)
[2018-02-26] MEDS: PREGABALIN 75 MG CAP(LYRICA) PO (12:37)
[2018-02-26] MEDS: AUGMENTIN 875 MG TAB PO (12:37)
[2018-02-26] MEDS: CARVedilol 6.25 MG TAB PO (12:38)
[2018-02-26] MEDS: MULTIVITAMINS/MINERALS THERAP 1 TAB PO (12:38)
[2018-02-26] MEDS: PANTOPRAZOLE 40MG TAB (PROTONIX) PO (12:38)
[2018-02-26] MEDS: CINACALCET 30 MG TAB (SENSIPAR) PO (12:38)
[2018-02-26] MEDS: predniSONE 5 MG TAB PO (12:38)
[2018-02-26] MEDS: DULoxetine 30 MG CAP (CYMBALTA) PO (12:38)
[2018-02-26] MEDS: FINASTERIDE 5 MG TAB PO (12:39)
[2018-02-26] MEDS: TORSEMIDE (DEMADEX) 50 MG PER 1/2 TAB PO (12:39)
[2018-02-26] MEDS: oxyBUTYnin *DITROPAN XL* 5 MG TABCR PO (12:39)
[2018-02-26] MEDS: FLUCONAZOLE 100 MG TAB PO (12:39)
[2018-02-26] MEDS: FEBUXOSTAT 40 MG TABLET (ULORIC) PO (12:39)
[2018-02-26] MEDS: NYSTATIN 100,000 UNITS/GM TOPICAL PWD 15 GM TOP (12:42)
[2018-02-26] MEDS: MORPHINE 15 MG SA TAB PO (12:46)
== END 2018-02-26 14:09 | disposition home or self-care (01) | DRG 683 ==
LOC: M ED 11:32 → M ED INP 15:43 → M MSPAV 17:18
DX: N17.9 Acute kidney failure, unspecified (principal); I50.22 Chronic systolic (congestive) heart failure; I13.0 Hypertensive heart and chronic kidney disease with heart failure and stage 1 through stage 4 chronic kidney disease, or unspecified chronic kidney disease; I69.354 Hemiplegia and hemiparesis following cerebral infarction affecting left non-dominant side; E87.1 Hypo-osmolality and hyponatremia; L03.115 Cellulitis of right lower limb; Z68.41 Body mass index [BMI] 40.0-44.9, adult; N18.4 Chronic kidney disease, stage 4 (severe); G47.33 Obstructive sleep apnea (adult) (pediatric); I25.10 Atherosclerotic heart disease of native coronary artery without angina pectoris; J44.9 Chronic obstructive pulmonary disease, unspecified; M10.9 Gout, unspecified; E66.01 Morbid (severe) obesity due to excess calories; I25.2 Old myocardial infarction; E11.22 Type 2 diabetes mellitus with diabetic chronic kidney disease; I87.2 Venous insufficiency (chronic) (peripheral); H40.9 Unspecified glaucoma; H35.30 Unspecified macular degeneration; D50.9 Iron deficiency anemia, unspecified; N40.1 Benign prostatic hyperplasia with lower urinary tract symptoms; E11.40 Type 2 diabetes mellitus with diabetic neuropathy, unspecified; K21.9 Gastro-esophageal reflux disease without esophagitis; L92.0 Granuloma annulare; L97.519 Non-pressure chronic ulcer of other part of right foot with unspecified severity; B37.2 Candidiasis of skin and nail; E11.319 Type 2 diabetes mellitus with unspecified diabetic retinopathy without macular edema; E11.621 Type 2 diabetes mellitus with foot ulcer; M54.2 Cervicalgia; B95.61 Methicillin susceptible Staphylococcus aureus infection as the cause of diseases classified elsewhere; B96.1 Klebsiella pneumoniae [K. pneumoniae] as the cause of diseases classified elsewhere; E87.5 Hyperkalemia; I95.9 Hypotension, unspecified; R33.9 Retention of urine, unspecified; N32.81 Overactive bladder; K59.00 Constipation, unspecified; L89.152 Pressure ulcer of sacral region, stage 2; Z87.891 Personal history of nicotine dependence; Z95.1 Presence of aortocoronary bypass graft; Z79.82 Long term (current) use of aspirin; Z99.3 Dependence on wheelchair; Z95.810 Presence of automatic (implantable) cardiac defibrillator; Z91.048 Other nonmedicinal substance allergy status; Z88.8 Allergy status to other drugs, medicaments and biological substances; Z79.4 Long term (current) use of insulin; Z79.52 Long term (current) use of systemic steroids; Z79.899 Other long term (current) drug therapy

== ENCOUNTER → 2018-03-08 | Outpatient (CLI) | payer MEDICARE, MEDICAID, OTHER | LOC: M PAIN 11:15 | DX: G89.29 Other chronic pain (principal); G62.9 Polyneuropathy, unspecified; I25.10 Atherosclerotic heart disease of native coronary artery without angina pectoris; I25.2 Old myocardial infarction; I50.9 Heart failure, unspecified; E11.22 Type 2 diabetes mellitus with diabetic chronic kidney disease; I13.0 Hypertensive heart and chronic kidney disease with heart failure and stage 1 through stage 4 chronic kidney disease, or unspecified chronic kidney disease; H40.9 Unspecified glaucoma; R16.1 Splenomegaly, not elsewhere classified; D50.9 Iron deficiency anemia, unspecified; H34.232 Retinal artery branch occlusion, left eye; L92.0 Granuloma annulare; H35.30 Unspecified macular degeneration; I25.5 Ischemic cardiomyopathy; H54.8 Legal blindness, as defined in USA; N40.0 Benign prostatic hyperplasia without lower urinary tract symptoms; N18.4 Chronic kidney disease, stage 4 (severe); K21.9 Gastro-esophageal reflux disease without esophagitis; M10.9 Gout, unspecified; Z95.5 Presence of coronary angioplasty implant and graft; Z95.810 Presence of automatic (implantable) cardiac defibrillator; Z79.891 Long term (current) use of opiate analgesic; Z88.8 Allergy status to other drugs, medicaments and biological substances; Z91.048 Other nonmedicinal substance allergy status; Z79.82 Long term (current) use of aspirin; Z79.52 Long term (current) use of systemic steroids; Z79.4 Long term (current) use of insulin; Z79.899 Other long term (current) drug therapy | CPT/HCPCS: G0463 ==

== ENCOUNTER → 2018-04-04 | Outpatient (REF) | payer MEDICARE, MEDICAID, OTHER ==
[2018-04-04 10:49] LABS: ANION GAP 10 MEQ/L (8-16); BLOOD UREA NITROGEN 36 MG/DL (7-18); CALCIUM LEVEL 8.5 MG/DL (8.5-10.1); CARBON DIOXIDE LEVEL 28 MEQ/L (21-32); CHLORIDE LEVEL 105 MEQ/L (98-107); CREATININE FOR GFR 2.44 MG/DL (0.70-1.30); GLOMERULAR FILTRATION RATE 29.1 (>56); GLUCOSE, FASTING 69 MG/DL (70-100); POTASSIUM SERUM 4.6 MEQ/L (3.5-5.1); SODIUM LEVEL 143 MEQ/L (136-145)
[2018-04-04 11:01] LABS: MAU/CREAT RATIO 12.1 MCG/MG (0.0-30.0)
== END ==
LOC: SKLABADC 09:00
DX: N18.4 Chronic kidney disease, stage 4 (severe) (principal); E11.42 Type 2 diabetes mellitus with diabetic polyneuropathy; E11.22 Type 2 diabetes mellitus with diabetic chronic kidney disease
CPT/HCPCS: 36415

== ENCOUNTER 2018-05-05 20:36 | Inpatient (IN) | payer MEDICARE, MEDICAID, OTHER ==
[2018-05-05] MEDS: METOCLOPRAMIDE INJ 10MG/2ML VIAL (J2765) IV (21:20)
[2018-05-05] MEDS: PANTOPRAZOLE 40MG INJ (PROTONIX) (C9113) IV (21:20)
[2018-05-05] MEDS: NS 1,000 ML IV (21:20)
[2018-05-05 21:33] LABS: BASO % 0.5 % (0.0-1.0); EOS # 0.1 10^3/uL (0.0-0.50); EOS % 0.8 % (0.0-3.0); HEMATOCRIT 47.7 % (42.0-52.0); HEMOGLOBIN 15.6 g/dl (13.5-17.5); IMMATURE GRANULOCYTE % 0.8 % (0-3.0); LYMPH # 1.3 10^3/uL (1.5-4.5); LYMPH % 15.4 % (24.0-44.0); MEAN CORPUSCULAR HEMOGLOBIN 29.4 pg (27.0-33.0); MEAN CORPUSCULAR HGB CONC 32.7 g/dl (32.0-36.5); MEAN CORPUSCULAR VOLUME 89.8 fl (80.0-96.0); MONO # 0.4 10^3/uL (0.0-0.8); MONO % 4.3 % (0.0-5.0); NEUTROPHILS # 6.5 10^3/uL (1.8-7.7); NEUTROPHILS % 78.2 % (36.0-66.0); PLATELET COUNT, AUTOMATED 132 10^3/uL (150-450); RED BLOOD COUNT 5.31 10^6/uL (4.30-6.10); RED CELL DISTRIBUTION WIDTH 14.5 % (11.5-14.5); WHITE BLOOD COUNT 8.3 10^3/uL (4.0-10.0)
[2018-05-05 21:50] LABS: ALKALINE PHOSPHATASE 180 U/L (45-117); ALT/SGPT 22 U/L (12-78); ANION GAP 8 MEQ/L (8-16); AST/SGOT 13 U/L (7-37); BLOOD UREA NITROGEN 24 MG/DL (7-18); CALCIUM LEVEL 8.8 MG/DL (8.5-10.1); CARBON DIOXIDE LEVEL 27 MEQ/L (21-32); CHLORIDE LEVEL 101 MEQ/L (98-107); CPK CREATINE PHOSPHOKINASE 40 U/L (39-308); CREATININE FOR GFR 1.84 MG/DL (0.70-1.30); GLOMERULAR FILTRATION RATE 40.3 (>56); GLUCOSE, FASTING 303 MG/DL (70-100); POTASSIUM SERUM 4.6 MEQ/L (3.5-5.1); SODIUM LEVEL 136 MEQ/L (136-145)
[2018-05-05 21:51] LABS: ALBUMIN 2.8 GM/DL (3.2-5.2); ALBUMIN/GLOBULIN RATIO 0.52 (1.00-1.93); BILIRUBIN,DIRECT 0.2 MG/DL (0.0-0.2); BILIRUBIN,TOTAL 0.7 MG/DL (0.2-1.0); LIPASE 140 U/L (73-393); TOTAL PROTEIN 8.2 GM/DL (6.4-8.2); TROPONIN I < 0.02 NG/ML (< 0.10)
[2018-05-06] MEDS ORDERED: NITROGLYCERIN 0.4 MG SUBL TABLET SL (01:30)
[2018-05-06] MEDS ORDERED: ACETAMINOPHEN TAB 650MG DOSE (2X325MG) PO (01:30)
[2018-05-06] MEDS ORDERED: BISACODYL 10 MG SUPP PR (01:30)
[2018-05-06] MEDS: DOCUSATE SODIUM 100 MG CAP PO ×3 (01:39→21:43)
[2018-05-06] MEDS: CILOSTAZOL 100 MG TAB (PLETAL) PO ×3 (01:40→21:45)
[2018-05-06] MEDS: CARVedilol 3.125 MG TAB PO ×3 (01:40→21:43)
[2018-05-06] MEDS: FERROUS SULFATE 325MG TAB PO ×3 (01:41→21:43)
[2018-05-06] MEDS: MORPHINE 15 MG SA TAB PO ×3 (01:41→21:44)
[2018-05-06] MEDS: SPIRONOLACTONE 25 MG TAB PO ×3 (01:42→21:45)
[2018-05-06] MEDS: PREGABALIN 75 MG CAP(LYRICA) PO ×3 (01:42→21:45)
[2018-05-06] MEDS ORDERED: PILL CRUSHER/CUTTER 1 EACH XX (01:45)
[2018-05-06] MEDS: HumaLOG INSULIN (NovoLOG) PER UNIT SC ×2 (02:28→21:47)
[2018-05-06] MEDS ORDERED: IPRATROPIUM 0.5MG/ALBUTEROL 2.5MG INH SOL UD 3ML (DUONEB)(J7620) NEB (02:30)
[2018-05-06] MEDS ORDERED: GLUCAGON FOR INJ 1 MG VIAL (J1610) SC (02:30)
[2018-05-06] MEDS ORDERED: DEXTROSE 50% 50 ML SYRINGE IV (02:30)
[2018-05-06] MEDS ORDERED: GLUCOSE 4 GM CHEW TABLET PO (02:30)
[2018-05-06 03:12] LABS: ERYTHROCYTE SEDIMENTATION RATE 47 mm/hr (0-20)
[2018-05-06] MEDS: tiZANidine 4 MG TAB PO ×2 (04:12→21:53)
[2018-05-06] MEDS: TAMSULOSIN 0.4 MG CAP PO ×2 (04:12→21:44)
[2018-05-06] MEDS: ATORVASTATIN 20 MG TAB PO ×2 (04:13→21:45)
[2018-05-06] MEDS: HEPARIN SOD (PORCINE) 5000 UNITS/ML VIAL SC ×3 (05:39→21:46)
[2018-05-06] MEDS: MORPHINE 4 MG/ML 1ML VIAL/SYRINGE (J2270) IV ×2 (05:40→19:38)
[2018-05-06 06:13] LABS: BEDSIDE GLUCOSE 94 MG/DL (70-105)
[2018-05-06] MEDS: FINASTERIDE 5 MG TAB PO (09:00)
[2018-05-06] MEDS: HUMULIN R U-500 KWIKPEN 500UNITS/ML 3ML SYRINGE (J1815 PER 5UNITS) SC ×3 (09:00→21:46)
[2018-05-06] MEDS: PEN NEEDLE (USE WITH HUMULIN U-500 INSULIN PEN) XX ×3 (09:00→21:00)
[2018-05-06] MEDS: MAGNESIUM OXIDE 400 MG TAB (MAG-OX) PO (09:02)
[2018-05-06] MEDS: POTASSIUM CHLORIDE 10 MEQ SR TABLET PO (09:02)
[2018-05-06] MEDS: oxyBUTYnin *DITROPAN XL* 5 MG TABCR PO (09:02)
[2018-05-06] MEDS: DULoxetine 30 MG CAP (CYMBALTA) PO (09:02)
[2018-05-06] MEDS: ASPIRIN ENTERIC 325 MG TAB PO (09:02)
[2018-05-06] MEDS: predniSONE 5 MG TAB PO (09:03)
[2018-05-06] MEDS: MIDODRINE 2.5 MG TAB PO ×3 (09:03→15:01)
[2018-05-06] MEDS: FEBUXOSTAT 40 MG TABLET (ULORIC) PO (09:03)
[2018-05-06] MEDS: TORSEMIDE 10 MG TABLET PO (09:03)
[2018-05-06] MEDS: MULTIVITAMINS/MINERALS THERAP 1 TAB PO (09:03)
[2018-05-06] MEDS: ONDANSETRON 4MG/2ML VIAL (J2405) IV (09:06)
[2018-05-06 11:38] LABS: BEDSIDE GLUCOSE 158 MG/DL (70-105)
[2018-05-06 16:49] LABS: BEDSIDE GLUCOSE 208 MG/DL (70-105)
[2018-05-07] MEDS: MORPHINE 4 MG/ML 1ML VIAL/SYRINGE (J2270) IV ×3 (04:59→20:22)
[2018-05-07] MEDS: HEPARIN SOD (PORCINE) 5000 UNITS/ML VIAL SC ×3 (05:05→21:02)
[2018-05-07 06:03] LABS: BEDSIDE GLUCOSE 223 MG/DL (70-105)
[2018-05-07 06:07] LABS: APPEARANCE, URINE HAZY (CLEAR); BACTERIA, URINE AUTO NEGATIVE (NEGATIVE); BILIRUBIN, URINE AUTO NEGATIVE (NEGATIVE); BLOOD, URINE BLOOD NEGATIVE (NEGATIVE); COLOR, URINE YELLOW (YELLOW); GLUCOSE, URINE (UA) AUTO NEGATIVE (NEGATIVE); KETONE, URINE AUTO NEGATIVE (NEGATIVE); LEUKOCYTE ESTERASE, URINE AUTO NEGATIVE (NEGATIVE); MUCUS, URINE SMALL (NEGATIVE); NITRITE, URINE AUTO NEGATIVE (NEGATIVE); PROTEIN, URINE AUTO 1+ mg/dL (NEGATIVE); RBC, URINE AUTO 0 /HPF (0-3); SPECIFIC GRAVITY URINE AUTO 1.012 (1.002-1.035); SQUAMOUS EPITHELIAL CELL UR AU 0 /HPF (0-6); UROBILINOGEN, URINE AUTO 0.2 mg/dL (0.0-2.0); WBC, URINE AUTO 0 /HPF (0-3)
[2018-05-07 06:25] LABS: POTASSIUM RANDOM URINE 17.2 MEQ/L; SODIUM,RANDOM URINE 26 MEQ/L
[2018-05-07 07:24] LABS: HEMATOCRIT 43.8 % (42.0-52.0); HEMOGLOBIN 14.5 g/dl (13.5-17.5); MEAN CORPUSCULAR HEMOGLOBIN 29.4 pg (27.0-33.0); MEAN CORPUSCULAR HGB CONC 33.1 g/dl (32.0-36.5); MEAN CORPUSCULAR VOLUME 88.8 fl (80.0-96.0); PLATELET COUNT, AUTOMATED 107 10^3/uL (150-450); RED BLOOD COUNT 4.93 10^6/uL (4.30-6.10); RED CELL DISTRIBUTION WIDTH 14.4 % (11.5-14.5); WHITE BLOOD COUNT 10.5 10^3/uL (4.0-10.0)
[2018-05-07 07:57] LABS: ALBUMIN 2.7 GM/DL (3.2-5.2); ALBUMIN/GLOBULIN RATIO 0.63 (1.00-1.93); ALKALINE PHOSPHATASE 136 U/L (45-117); ALT/SGPT 19 U/L (12-78); ANION GAP 7 MEQ/L (8-16); AST/SGOT 17 U/L (7-37); BILIRUBIN,TOTAL 0.5 MG/DL (0.2-1.0); BLOOD UREA NITROGEN 21 MG/DL (7-18); CALCIUM LEVEL 9.3 MG/DL (8.5-10.1); CARBON DIOXIDE LEVEL 26 MEQ/L (21-32); CHLORIDE LEVEL 108 MEQ/L (98-107); CREATININE FOR GFR 1.47 MG/DL (0.70-1.30); GLOMERULAR FILTRATION RATE 52.2 (>56); GLUCOSE, FASTING 36 MG/DL (70-100); MAGNESIUM LEVEL 2.3 MG/DL (1.8-2.4); POTASSIUM SERUM 3.3 MEQ/L (3.5-5.1); SODIUM LEVEL 141 MEQ/L (136-145)
[2018-05-07] MEDS: HUMULIN R U-500 KWIKPEN 500UNITS/ML 3ML SYRINGE (J1815 PER 5UNITS) SC ×3 (08:56→20:18)
[2018-05-07] MEDS: PEN NEEDLE (USE WITH HUMULIN U-500 INSULIN PEN) XX ×3 (09:00→20:18)
[2018-05-07] MEDS: FEBUXOSTAT 40 MG TABLET (ULORIC) PO (09:02)
[2018-05-07] MEDS: FERROUS SULFATE 325MG TAB PO ×2 (09:02→20:21)
[2018-05-07] MEDS: CINACALCET 30 MG TAB (SENSIPAR) PO (09:02)
[2018-05-07] MEDS: MULTIVITAMINS/MINERALS THERAP 1 TAB PO (09:02)
[2018-05-07] MEDS: DULoxetine 30 MG CAP (CYMBALTA) PO (09:02)
[2018-05-07] MEDS: ASPIRIN ENTERIC 325 MG TAB PO (09:03)
[2018-05-07] MEDS: TORSEMIDE 10 MG TABLET PO (09:03)
[2018-05-07] MEDS: MIDODRINE 2.5 MG TAB PO ×3 (09:03→15:31)
[2018-05-07] MEDS: FINASTERIDE 5 MG TAB PO (09:03)
[2018-05-07] MEDS: MAGNESIUM OXIDE 400 MG TAB (MAG-OX) PO (09:03)
[2018-05-07] MEDS: PREGABALIN 75 MG CAP(LYRICA) PO ×2 (09:03→21:02)
[2018-05-07] MEDS: DOCUSATE SODIUM 100 MG CAP PO ×2 (09:04→20:21)
[2018-05-07] MEDS: CILOSTAZOL 100 MG TAB (PLETAL) PO ×2 (09:04→20:20)
[2018-05-07] MEDS: oxyBUTYnin *DITROPAN XL* 5 MG TABCR PO (09:05)
[2018-05-07] MEDS: POTASSIUM CHLORIDE 10 MEQ SR TABLET PO ×2 (09:05→14:17)
[2018-05-07] MEDS: SPIRONOLACTONE 25 MG TAB PO ×2 (09:05→21:02)
[2018-05-07] MEDS: predniSONE 5 MG TAB PO (09:05)
[2018-05-07] MEDS: MORPHINE 15 MG SA TAB PO ×2 (09:06→20:21)
[2018-05-07] MEDS: CARVedilol 3.125 MG TAB PO ×2 (09:09→20:20)
[2018-05-07] MEDS: EUCERIN 120GM CREAM TOP (15:31)
[2018-05-07] MEDS: AUGMENTIN 875 MG TAB PO ×2 (15:31→20:20)
[2018-05-07] MEDS: SANTYL OINT 30GM TOP (15:31)
[2018-05-07] MEDS: HumaLOG INSULIN (NovoLOG) PER UNIT SC (20:19)
[2018-05-07] MEDS: ATORVASTATIN 20 MG TAB PO (20:19)
[2018-05-07] MEDS: TAMSULOSIN 0.4 MG CAP PO (21:02)
[2018-05-08 02:45] LABS: BEDSIDE GLUCOSE 183 MG/DL (70-105)
[2018-05-08 02:45] LABS: BEDSIDE GLUCOSE 104 MG/DL (70-105)
[2018-05-08 02:45] LABS: BEDSIDE GLUCOSE 355 MG/DL (70-105)
[2018-05-08 02:45] LABS: BEDSIDE GLUCOSE 286 MG/DL (70-105)
[2018-05-08] MEDS: HEPARIN SOD (PORCINE) 5000 UNITS/ML VIAL SC ×3 (05:24→21:00)
[2018-05-08 07:07] LABS: HEMATOCRIT 38.2 % (42.0-52.0); MEAN CORPUSCULAR HEMOGLOBIN 29.4 pg (27.0-33.0); MEAN CORPUSCULAR HGB CONC 32.7 g/dl (32.0-36.5); MEAN CORPUSCULAR VOLUME 89.9 fl (80.0-96.0); RED BLOOD COUNT 4.25 10^6/uL (4.30-6.10); RED CELL DISTRIBUTION WIDTH 14.4 % (11.5-14.5); WHITE BLOOD COUNT 8.5 10^3/uL (4.0-10.0)
[2018-05-08 07:34] LABS: ALBUMIN 2.7 GM/DL (3.2-5.2); ALBUMIN/GLOBULIN RATIO 0.75 (1.00-1.93); ALKALINE PHOSPHATASE 143 U/L (45-117); ALT/SGPT 19 U/L (12-78); ANION GAP 8 MEQ/L (8-16); AST/SGOT 12 U/L (7-37); BILIRUBIN,TOTAL 0.6 MG/DL (0.2-1.0); BLOOD UREA NITROGEN 25 MG/DL (7-18); CALCIUM LEVEL 8.4 MG/DL (8.5-10.1); CARBON DIOXIDE LEVEL 25 MEQ/L (21-32); CHLORIDE LEVEL 106 MEQ/L (98-107); CREATININE FOR GFR 1.62 MG/DL (0.70-1.30); GLOMERULAR FILTRATION RATE 46.7 (>56); GLUCOSE, FASTING 194 MG/DL (70-100); POTASSIUM SERUM 4.5 MEQ/L (3.5-5.1); SODIUM LEVEL 139 MEQ/L (136-145); TOTAL PROTEIN 6.3 GM/DL (6.4-8.2)
[2018-05-08 07:52] LABS: PLATELET COUNT, AUTOMATED 96 10^3/uL (150-450)
[2018-05-08 07:53] LABS: HEMOGLOBIN 12.5 g/dl (13.5-17.5); IMMATURE PLATELET FRACTION % 12.7 % (0.0-10.9)
[2018-05-08] MEDS: HUMULIN R U-500 KWIKPEN 500UNITS/ML 3ML SYRINGE (J1815 PER 5UNITS) SC ×3 (08:51→21:00)
[2018-05-08] MEDS: EUCERIN 120GM CREAM TOP (08:53)
[2018-05-08] MEDS: SANTYL OINT 30GM TOP (08:53)
[2018-05-08] MEDS: FINASTERIDE 5 MG TAB PO (08:54)
[2018-05-08] MEDS: AUGMENTIN 875 MG TAB PO ×2 (08:54→20:56)
[2018-05-08] MEDS: ASPIRIN ENTERIC 325 MG TAB PO (08:54)
[2018-05-08] MEDS: MIDODRINE 2.5 MG TAB PO ×3 (08:54→15:33)
[2018-05-08] MEDS: CILOSTAZOL 100 MG TAB (PLETAL) PO ×2 (08:54→20:56)
[2018-05-08] MEDS: MAGNESIUM OXIDE 400 MG TAB (MAG-OX) PO (08:54)
[2018-05-08] MEDS: PREGABALIN 75 MG CAP(LYRICA) PO ×2 (08:54→20:56)
[2018-05-08] MEDS: SPIRONOLACTONE 25 MG TAB PO ×2 (08:54→20:56)
[2018-05-08] MEDS: predniSONE 5 MG TAB PO (08:54)
[2018-05-08] MEDS: FEBUXOSTAT 40 MG TABLET (ULORIC) PO (08:54)
[2018-05-08] MEDS: FERROUS SULFATE 325MG TAB PO ×2 (08:55→20:57)
[2018-05-08] MEDS: MULTIVITAMINS/MINERALS THERAP 1 TAB PO (08:55)
[2018-05-08] MEDS: oxyBUTYnin *DITROPAN XL* 5 MG TABCR PO (08:55)
[2018-05-08] MEDS: TORSEMIDE 10 MG TABLET PO (08:55)
[2018-05-08] MEDS: CARVedilol 3.125 MG TAB PO ×2 (08:56→20:59)
[2018-05-08] MEDS: DULoxetine 30 MG CAP (CYMBALTA) PO (08:56)
[2018-05-08] MEDS: DOCUSATE SODIUM 100 MG CAP PO ×2 (08:56→21:00)
[2018-05-08] MEDS: MORPHINE 15 MG SA TAB PO ×2 (08:57→20:57)
[2018-05-08] MEDS: POTASSIUM CHLORIDE 10 MEQ SR TABLET PO (08:57)
[2018-05-08] MEDS: PEN NEEDLE (USE WITH HUMULIN U-500 INSULIN PEN) XX ×3 (08:57→21:00)
[2018-05-08 12:09] LABS: BEDSIDE GLUCOSE 278 MG/DL (70-105)
[2018-05-08] MEDS: HumaLOG INSULIN (NovoLOG) PER UNIT SC (20:45)
[2018-05-08] MEDS: TAMSULOSIN 0.4 MG CAP PO (20:56)
[2018-05-08] MEDS: ATORVASTATIN 20 MG TAB PO (20:59)
[2018-05-08 21:14] LABS: BEDSIDE GLUCOSE 149 MG/DL (70-105)
[2018-05-09 03:08] LABS: BEDSIDE GLUCOSE 217 MG/DL (70-105)
[2018-05-09] MEDS: HEPARIN SOD (PORCINE) 5000 UNITS/ML VIAL SC ×3 (05:07→21:37)
[2018-05-09 05:59] LABS: HEMATOCRIT 39.9 % (42.0-52.0); MEAN CORPUSCULAR HEMOGLOBIN 28.8 pg (27.0-33.0); MEAN CORPUSCULAR HGB CONC 32.6 g/dl (32.0-36.5); MEAN CORPUSCULAR VOLUME 88.5 fl (80.0-96.0); PLATELET COUNT, AUTOMATED 106 10^3/uL (150-450); RED BLOOD COUNT 4.51 10^6/uL (4.30-6.10); RED CELL DISTRIBUTION WIDTH 14.3 % (11.5-14.5)
[2018-05-09 06:28] LABS: ALBUMIN 2.8 GM/DL (3.2-5.2); ALBUMIN/GLOBULIN RATIO 0.65 (1.00-1.93); ALKALINE PHOSPHATASE 151 U/L (45-117); ALT/SGPT 26 U/L (12-78); ANION GAP 6 MEQ/L (8-16); AST/SGOT 20 U/L (7-37); BILIRUBIN,TOTAL 0.5 MG/DL (0.2-1.0); BLOOD UREA NITROGEN 29 MG/DL (7-18); CALCIUM LEVEL 8.8 MG/DL (8.5-10.1); CARBON DIOXIDE LEVEL 26 MEQ/L (21-32); CHLORIDE LEVEL 108 MEQ/L (98-107); CREATININE FOR GFR 1.55 MG/DL (0.70-1.30); GLOMERULAR FILTRATION RATE 49.1 (>56); GLUCOSE, FASTING 123 MG/DL (70-100); MAGNESIUM LEVEL 2.2 MG/DL (1.8-2.4); POTASSIUM SERUM 4.6 MEQ/L (3.5-5.1); SODIUM LEVEL 140 MEQ/L (136-145); TOTAL PROTEIN 7.1 GM/DL (6.4-8.2)
[2018-05-09] MEDS: MIDODRINE 2.5 MG TAB PO ×3 (08:27→15:20)
[2018-05-09] MEDS: MORPHINE 15 MG SA TAB PO ×2 (08:27→21:40)
[2018-05-09] MEDS: CINACALCET 30 MG TAB (SENSIPAR) PO (10:30)
[2018-05-09] MEDS: TORSEMIDE 10 MG TABLET PO (10:31)
[2018-05-09] MEDS: ASPIRIN ENTERIC 325 MG TAB PO (10:32)
[2018-05-09] MEDS: oxyBUTYnin *DITROPAN XL* 5 MG TABCR PO (10:32)
[2018-05-09] MEDS: AUGMENTIN 875 MG TAB PO ×2 (10:32→21:37)
[2018-05-09] MEDS: CILOSTAZOL 100 MG TAB (PLETAL) PO ×2 (10:32→21:37)
[2018-05-09] MEDS: DULoxetine 30 MG CAP (CYMBALTA) PO (10:33)
[2018-05-09] MEDS: SPIRONOLACTONE 25 MG TAB PO ×2 (10:33→21:37)
[2018-05-09] MEDS: tiZANidine 4 MG TAB PO ×2 (10:33→21:46)
[2018-05-09] MEDS: FINASTERIDE 5 MG TAB PO (10:33)
[2018-05-09] MEDS: predniSONE 5 MG TAB PO (10:35)
[2018-05-09] MEDS: PREGABALIN 75 MG CAP(LYRICA) PO ×2 (10:35→21:40)
[2018-05-09] MEDS: FERROUS SULFATE 325MG TAB PO ×2 (10:35→21:39)
[2018-05-09] MEDS: CARVedilol 3.125 MG TAB PO ×2 (10:35→21:38)
[2018-05-09] MEDS: MULTIVITAMINS/MINERALS THERAP 1 TAB PO (10:36)
[2018-05-09] MEDS: POTASSIUM CHLORIDE 10 MEQ SR TABLET PO (10:36)
[2018-05-09] MEDS: FEBUXOSTAT 40 MG TABLET (ULORIC) PO (10:37)
[2018-05-09] MEDS: MAGNESIUM OXIDE 400 MG TAB (MAG-OX) PO (10:37)
[2018-05-09] MEDS: DOCUSATE SODIUM 100 MG CAP PO ×2 (10:38→21:40)
[2018-05-09] MEDS: PEN NEEDLE (USE WITH HUMULIN U-500 INSULIN PEN) XX ×3 (10:38→21:37)
[2018-05-09] MEDS: EUCERIN 120GM CREAM TOP (10:39)
[2018-05-09] MEDS: SANTYL OINT 30GM TOP (10:40)
[2018-05-09] MEDS: HUMULIN R U-500 KWIKPEN 500UNITS/ML 3ML SYRINGE (J1815 PER 5UNITS) SC ×3 (10:41→21:42)
[2018-05-09 11:47] LABS: BEDSIDE GLUCOSE 228 MG/DL (70-105)
[2018-05-09] MEDS: HumaLOG INSULIN (NovoLOG) PER UNIT SC (21:00)
[2018-05-09] MEDS: ATORVASTATIN 20 MG TAB PO (21:38)
[2018-05-09] MEDS: TAMSULOSIN 0.4 MG CAP PO (21:40)
[2018-05-10] MEDS: HEPARIN SOD (PORCINE) 5000 UNITS/ML VIAL SC (05:44)
[2018-05-10 06:41] LABS: HEMATOCRIT 38.2 % (42.0-52.0); HEMOGLOBIN 12.4 g/dl (13.5-17.5); MEAN CORPUSCULAR HEMOGLOBIN 29.2 pg (27.0-33.0); MEAN CORPUSCULAR HGB CONC 32.5 g/dl (32.0-36.5); MEAN CORPUSCULAR VOLUME 90.1 fl (80.0-96.0); PLATELET COUNT, AUTOMATED 106 10^3/uL (150-450); RED BLOOD COUNT 4.24 10^6/uL (4.30-6.10); RED CELL DISTRIBUTION WIDTH 14.4 % (11.5-14.5); WHITE BLOOD COUNT 6.2 10^3/uL (4.0-10.0)
[2018-05-10 07:03] LABS: ALBUMIN 2.8 GM/DL (3.2-5.2); ALKALINE PHOSPHATASE 151 U/L (45-117); ALT/SGPT 31 U/L (12-78); ANION GAP 6 MEQ/L (8-16); AST/SGOT 24 U/L (7-37); BILIRUBIN,TOTAL 0.5 MG/DL (0.2-1.0); BLOOD UREA NITROGEN 30 MG/DL (7-18); CALCIUM LEVEL 8.5 MG/DL (8.5-10.1); CARBON DIOXIDE LEVEL 30 MEQ/L (21-32); CHLORIDE LEVEL 104 MEQ/L (98-107); CREATININE FOR GFR 1.68 MG/DL (0.70-1.30); GLOMERULAR FILTRATION RATE 44.7 (>56); GLUCOSE, FASTING 196 MG/DL (70-100); MAGNESIUM LEVEL 2.2 MG/DL (1.8-2.4); POTASSIUM SERUM 5.1 MEQ/L (3.5-5.1); SODIUM LEVEL 140 MEQ/L (136-145); TOTAL PROTEIN 6.8 GM/DL (6.4-8.2)
[2018-05-10 08:08] LABS: URINE BICARBONATE <5 mmol/L (.)
[2018-05-10] MEDS: DOCUSATE SODIUM 100 MG CAP PO (08:33)
[2018-05-10] MEDS: MAGNESIUM OXIDE 400 MG TAB (MAG-OX) PO (08:33)
[2018-05-10] MEDS: MORPHINE 15 MG SA TAB PO (08:34)
[2018-05-10] MEDS: predniSONE 5 MG TAB PO (08:34)
[2018-05-10] MEDS: FINASTERIDE 5 MG TAB PO (08:35)
[2018-05-10] MEDS: ASPIRIN ENTERIC 325 MG TAB PO (08:36)
[2018-05-10] MEDS: SPIRONOLACTONE 25 MG TAB PO (08:36)
[2018-05-10] MEDS: MULTIVITAMINS/MINERALS THERAP 1 TAB PO (08:37)
[2018-05-10] MEDS: TORSEMIDE 10 MG TABLET PO (08:37)
[2018-05-10] MEDS: AUGMENTIN 875 MG TAB PO (08:38)
[2018-05-10] MEDS: CARVedilol 3.125 MG TAB PO (08:38)
[2018-05-10] MEDS: CILOSTAZOL 100 MG TAB (PLETAL) PO (08:38)
[2018-05-10] MEDS: oxyBUTYnin *DITROPAN XL* 5 MG TABCR PO (08:38)
[2018-05-10] MEDS: DULoxetine 30 MG CAP (CYMBALTA) PO (08:38)
[2018-05-10] MEDS: FEBUXOSTAT 40 MG TABLET (ULORIC) PO (08:39)
[2018-05-10] MEDS: PREGABALIN 75 MG CAP(LYRICA) PO (08:39)
[2018-05-10] MEDS: MIDODRINE 2.5 MG TAB PO (08:39)
[2018-05-10] MEDS: PEN NEEDLE (USE WITH HUMULIN U-500 INSULIN PEN) XX (08:39)
[2018-05-10] MEDS: FERROUS SULFATE 325MG TAB PO (08:39)
[2018-05-10] MEDS: EUCERIN 120GM CREAM TOP (08:40)
[2018-05-10] MEDS: SANTYL OINT 30GM TOP (08:41)
[2018-05-10] MEDS: HUMULIN R U-500 KWIKPEN 500UNITS/ML 3ML SYRINGE (J1815 PER 5UNITS) SC (08:41)
[2018-05-10] MEDS: POTASSIUM CHLORIDE 10 MEQ SR TABLET PO (09:00)
[2018-05-10 21:58] LABS: BEDSIDE GLUCOSE 266 MG/DL (70-105)
[2018-05-10 21:58] LABS: BEDSIDE GLUCOSE 207 MG/DL (70-105)
[2018-05-11 16:23] LABS: O+P EXAM Result 1
== END 2018-05-10 11:45 | disposition home or self-care (01) | DRG 392 ==
LOC: M ED INP 05-06 01:17 → M MS4PR 05-06 03:15 → M MS5PR 05-06 03:16 → M ED 20:36
DX: K52.9 Noninfective gastroenteritis and colitis, unspecified (principal); I50.32 Chronic diastolic (congestive) heart failure; N18.4 Chronic kidney disease, stage 4 (severe); I13.0 Hypertensive heart and chronic kidney disease with heart failure and stage 1 through stage 4 chronic kidney disease, or unspecified chronic kidney disease; I69.354 Hemiplegia and hemiparesis following cerebral infarction affecting left non-dominant side; L89.619 Pressure ulcer of right heel, unspecified stage; N40.1 Benign prostatic hyperplasia with lower urinary tract symptoms; J44.9 Chronic obstructive pulmonary disease, unspecified; E11.22 Type 2 diabetes mellitus with diabetic chronic kidney disease; E78.5 Hyperlipidemia, unspecified; E11.621 Type 2 diabetes mellitus with foot ulcer; L97.519 Non-pressure chronic ulcer of other part of right foot with unspecified severity; D69.6 Thrombocytopenia, unspecified; K21.9 Gastro-esophageal reflux disease without esophagitis; R33.9 Retention of urine, unspecified; E11.43 Type 2 diabetes mellitus with diabetic autonomic (poly)neuropathy; B95.61 Methicillin susceptible Staphylococcus aureus infection as the cause of diseases classified elsewhere; G47.33 Obstructive sleep apnea (adult) (pediatric); K43.9 Ventral hernia without obstruction or gangrene; N32.81 Overactive bladder; K31.84 Gastroparesis; H35.30 Unspecified macular degeneration; M10.9 Gout, unspecified; E11.65 Type 2 diabetes mellitus with hyperglycemia; Z79.82 Long term (current) use of aspirin; Z79.4 Long term (current) use of insulin; Z79.891 Long term (current) use of opiate analgesic; Z79.52 Long term (current) use of systemic steroids; Z79.899 Other long term (current) drug therapy; Z88.8 Allergy status to other drugs, medicaments and biological substances; Z87.891 Personal history of nicotine dependence; Z91.048 Other nonmedicinal substance allergy status

== ENCOUNTER → 2018-05-28 | Outpatient (REF) | payer MEDICARE, MEDICAID, OTHER ==
[~2018-05-28] MED LIST changes: +/ADVA50050 IN; +/ATOR40TA PO; +/CIPR75TA OR; +/OMEP10CA; +/PANT40TA; +/SALMDISK IN; +ACET25TA12 PO; +ACET500T15 PO; +ADVA115A INH; +ADVAIR500 INHALATION; +ALBU83IN IN; +ALBU83IN INH; +ALBUTEROL INHALATION; +ALCOHOL TOP; +ALDACTON50 PO; +ALLO10TA PO; +ALTACE10 PO; +AMOX875T2 PO; +ASPI325T PO; +ASPI325T25 PO; +ATOR40TA75 PO; +ATOR80TA59 PO; +AVANDIA4 PO; +AVOD0.5C OR; +AVOD0.5C PO; +BACTRIMDS PO; +CALC0.5C6 PO; +CALC1CAP31 PO; +CAPOTEN PO; +CARV12.5 PO; +CARV25TA OR; +CARV3.12 PO; +CARV6.25 PO; +CEPH500C PO; +CILO100T PO; +CILO50TA PO; +CINA30TA PO; +CIPR1TAB20 PO; +CIPR500T19 OR; +COLA100C5 PO; +COMBIVENT PO; +DEPAKOT500 PO; +DEXI60CA2 PO; +DOCU100C16 PO; +DOXY100C PO; +DULE200A INH; +DULO1CAP2 PO; +DULO1CAP3 PO; +DYNACIRC PO; +ELID1CRE11 TOP; +FEBU40TA PO; +FERR1TAB8 PO; +FERR325T3 PO; +FINA5TAB2 PO; +FLAG500T PO; +FLOM0.4C39 PO; +FURO40TA2 OR; +FURO80TA2 OR; +GLUC1000 PO; +GLUC1KIT INJ; +GLUC5TAB PO; +GLUCOP1000 PO; +GLUCULTRA TOPICAL; +HEPA100PFS INJ; +HUMA100I5 SC; +HUMA50IN4 SC; +HUMALOG SQ; +HUMU500S SC; +HUMU500S2 SC; +HYDR-3716; +HYDR-3719 PO; +HYDR25TA6; +Hydrocodone PO; +INSUDET SC; +INSUHUMDS SC; +IPRA0.00 INH; +IPRA2IN INH; +IRON28TA OR; +ISOS30BRAN; +Januvia PO; +KEFLEX250 PO; +KEPP250T5 PO; +KLONOPIN PO; +KLOR10TA76 PO; +LACHYDRIN TOP; +LANCMIS; +LANTINJ4 SC; +LASIX20 PO; +LASIX40 PO; -LIDOCAINE 2% INJ 100 MG/5 ML SDV (FOR ANES.) As Ordered; +LIPITOR40 PO; +LOPR100T; +LOPRESS100 PO; +LOPRESS50 PO; +LORTAB10 PO; +LOTRISCREA TOPICALLY; +LYRI150C PO; +LYRI75CA PO; +MAGN400T2 PO; +MAGN400T5 PO; +MAGN500T2 OR; +METFORM500 PO; +METO25TA PO; -MIDAZOLAM INJ 2 MG/2 ML VIAL (J2250) As Ordered; +MIDO2.5T PO; +MS C15TA8 PO; +MULTIVIT PO; +NICO21DI4; +NITR0.4S SL; +NITR4TASL SL; +NITROSTAT4 SL; +NORC10TA21 PO; +NORV5TAB; -NS 1,000 ML IV; +OMEP20TA7 OR; +OXYB15TA PO; +OXYB5TAB PO; +OXYB5TAB10 PO; +PLAV75TA2; +PLAVIX75 PO; +PLENDIL10 PO; +POTA99TA OR; +PRED10PA PO; +PRED10TA2 PO; +PRED5TA PO; +PREDNISO20 PO; +PREDTAP PO; +PREG100CA PO; +PRILOSEC20 PO; +PRIN20TA3; +PROAAER10 INH; -PROPOFOL 200 MG/20 ML VIAL As Ordered; +PULM0.5S INH; +SALI0.9I2 IV; +SOMA350 PO; +SOMA350T PO; +SPIR-10 PO; +SYR.5; +TORS100T PO; +TORS10TA3 PO; +TORS20TA2 PO; +TOUJ1.2I SC; +TRIA1CR TOP; +TRIAMCIN TOPICAL; +TYLE1TAB5 PO; +ULOR80TA PO; +VENTAER IN; +VICODIN10 PO; +VICT18IN SC; +VITMTA PO; +Victoza SC; +ZANA4TAB PO; +ZOCOR40 PO; +ZOCOR80 PO; +ZOFR4TAB14 PO; +ZOFR4TAB16 PO; +ZOSY2INJ2 IV; +[UNRECOGNIZED DRUG - CODE] PO; +[UNRECOGNIZED DRUG - CODE] PO; +[UNRECOGNIZED DRUG - CODE] PO; +[UNRECOGNIZED DRUG - OTHER]; +[UNRECOGNIZED DRUG - OTHER]; +[UNRECOGNIZED DRUG - OTHER] SQ; +[UNRECOGNIZED DRUG - OTHER] SQ; -fentaNYL 100 MCG/2 ML INJECTION (J3010) As Ordered; +mycostatin powder TOP
[2018-05-28 11:25] LABS: INR 0.97
[2018-05-28 12:31] LABS: PERCENT SATURATION 34.2 % (19.7-50.0)
[2018-05-30 00:11] LABS: ANTI-SMOOTH MUSCLE ANTIBODY 7 Units (0-19); TRANSFERRIN 201 mg/dL (200-370)
== END ==
LOC: SKLABADC 08:49
PROVIDERS: ATTEND Family Medicine
DX: K74.60 Unspecified cirrhosis of liver (principal); E11.22 Type 2 diabetes mellitus with diabetic chronic kidney disease; D69.6 Thrombocytopenia, unspecified

== ENCOUNTER → 2018-05-30 | Outpatient (CLI) | payer MEDICARE, MEDICAID, OTHER | LOC: M PAIN 11:15 | DX: G89.29 Other chronic pain (principal); G62.9 Polyneuropathy, unspecified; Z79.891 Long term (current) use of opiate analgesic; I25.10 Atherosclerotic heart disease of native coronary artery without angina pectoris; I25.2 Old myocardial infarction; I50.9 Heart failure, unspecified; E11.22 Type 2 diabetes mellitus with diabetic chronic kidney disease; I13.0 Hypertensive heart and chronic kidney disease with heart failure and stage 1 through stage 4 chronic kidney disease, or unspecified chronic kidney disease; N18.4 Chronic kidney disease, stage 4 (severe); H40.9 Unspecified glaucoma; D50.9 Iron deficiency anemia, unspecified; H35.30 Unspecified macular degeneration; H54.8 Legal blindness, as defined in USA; N40.0 Benign prostatic hyperplasia without lower urinary tract symptoms; K21.9 Gastro-esophageal reflux disease without esophagitis; M54.2 Cervicalgia; M54.5 Low back pain; M10.9 Gout, unspecified; I25.5 Ischemic cardiomyopathy; Z87.891 Personal history of nicotine dependence; Z95.1 Presence of aortocoronary bypass graft; Z95.0 Presence of cardiac pacemaker; Z88.6 Allergy status to analgesic agent; Z88.5 Allergy status to narcotic agent; Z91.048 Other nonmedicinal substance allergy status; Z79.82 Long term (current) use of aspirin; Z79.52 Long term (current) use of systemic steroids; Z79.4 Long term (current) use of insulin; Z79.899 Other long term (current) drug therapy | CPT/HCPCS: G0463 ==

== ENCOUNTER → 2018-06-05 | Outpatient (CLI) | payer MEDICARE, MEDICAID, OTHER | LOC: M RAD 08:59 | DX: L89.612 Pressure ulcer of right heel, stage 2 (principal); I70.201 Unspecified atherosclerosis of native arteries of extremities, right leg | CPT/HCPCS: 93926 ==

== ENCOUNTER → 2018-06-21 | Outpatient (REF) | payer MEDICARE, MEDICAID, OTHER | LOC: M LAB REF 15:06 | DX: L89.613 Pressure ulcer of right heel, stage 3 (principal) | CPT/HCPCS: 87070; 87186 ==

== ENCOUNTER 2018-07-05 12:51 | Inpatient (IN) | payer MEDICARE, MEDICAID, OTHER ==
[2018-07-05 14:03] LABS: BASO % 0.4 % (0.0-1.0); EOS # 0.2 10^3/uL (0.0-0.50); EOS % 1.6 % (0.0-3.0); HEMOGLOBIN 15.6 g/dl (13.5-17.5); IMMATURE GRANULOCYTE % 0.3 % (0-3.0); LYMPH # 1.3 10^3/uL (1.5-4.5); LYMPH % 13.8 % (24.0-44.0); MEAN CORPUSCULAR HEMOGLOBIN 29.7 pg (27.0-33.0); MEAN CORPUSCULAR HGB CONC 32.5 g/dl (32.0-36.5); MEAN CORPUSCULAR VOLUME 91.4 fl (80.0-96.0); MONO # 0.4 10^3/uL (0.0-0.8); MONO % 4.4 % (0.0-5.0); NEUTROPHILS # 7.2 10^3/uL (1.8-7.7); NEUTROPHILS % 79.5 % (36.0-66.0); RED BLOOD COUNT 5.25 10^6/uL (4.30-6.10); RED CELL DISTRIBUTION WIDTH 14.9 % (11.5-14.5); WHITE BLOOD COUNT 9.1 10^3/uL (4.0-10.0)
[2018-07-05 14:06] LABS: IMMATURE PLATELET FRACTION % 19.4 % (0.0-10.9); PLATELET COUNT, AUTOMATED 99 10^3/uL (150-450)
[2018-07-05 14:20] LABS: INR 0.99; PROTHROMBIN TIME 13.2 SECONDS (12.1-14.4)
[2018-07-05 14:21] LABS: PARTIAL THROMBOPLASTIN TIME 30.7 SECONDS (25.4-37.6)
[2018-07-05 14:36] LABS: ERYTHROCYTE SEDIMENTATION RATE 5 mm/hr (0-20)
[2018-07-05 14:45] LABS: LACTIC ACID SEPSIS PROTOCOL 2.3 MMOL/L (0.4-2.0)
[2018-07-05 15:25] LABS: ALBUMIN 3.6 GM/DL (3.2-5.2); ALBUMIN/GLOBULIN RATIO 1.09 (1.00-1.93); ALKALINE PHOSPHATASE 146 U/L (45-117); ALT/SGPT 19 U/L (12-78); ANION GAP 9 MEQ/L (8-16); AST/SGOT 16 U/L (7-37); BILIRUBIN,DIRECT 0.2 MG/DL (0.0-0.2); BILIRUBIN,TOTAL 0.5 MG/DL (0.2-1.0); BLOOD UREA NITROGEN 36 MG/DL (7-18); C REACTIVE PROTEIN QUANTITATIV 1.08 MG/DL (0.00-0.30); CALCIUM LEVEL 8.4 MG/DL (8.8-10.2); CARBON DIOXIDE LEVEL 28 MEQ/L (21-32); CHLORIDE LEVEL 102 MEQ/L (98-107); CREATININE FOR GFR 2.69 MG/DL (0.70-1.30); GLOMERULAR FILTRATION RATE 25.9 (>49); GLUCOSE, FASTING 45 MG/DL (70-100); POTASSIUM SERUM 4.5 MEQ/L (3.5-5.1); SODIUM LEVEL 139 MEQ/L (136-145); TOTAL PROTEIN 6.9 GM/DL (6.4-8.2)
[2018-07-05] MEDS: PIPERACILLIN/TAZOBACTAM SOD 3.375 GM in D5W MINI-BAG PLUS 50 ML IV (17:15)
[2018-07-05] MEDS ORDERED: NITROGLYCERIN 0.4 MG SUBL TABLET SL (17:45)
[2018-07-05] MEDS ORDERED: ALBUTEROL 90 MCG/ACT 8GM HFA INHALER INH (17:45)
[2018-07-05] MEDS ORDERED: DOCUSATE SODIUM 100 MG CAP PO (17:45)
[2018-07-05 19:42] LABS: ANION GAP 8 MEQ/L (8-16); BLOOD UREA NITROGEN 36 MG/DL (7-18); CALCIUM LEVEL 8.4 MG/DL (8.8-10.2); CARBON DIOXIDE LEVEL 27 MEQ/L (21-32); CHLORIDE LEVEL 103 MEQ/L (98-107); CREATININE FOR GFR 2.47 MG/DL (0.70-1.30); GLOMERULAR FILTRATION RATE 28.6 (>49); GLUCOSE, FASTING 62 MG/DL (70-100); POTASSIUM SERUM 3.7 MEQ/L (3.5-5.1); SODIUM LEVEL 138 MEQ/L (136-145)
[2018-07-05] MEDS: SPIRONOLACTONE 25 MG TAB PO (20:00)
[2018-07-05] MEDS: DOXYCYCLINE HYCLATE 100 MG in D5W MINI-BAG PLUS 100 ML IV (20:11)
[2018-07-05] MEDS: TAMSULOSIN 0.4 MG CAP PO (20:11)
[2018-07-05] MEDS: ATORVASTATIN 20 MG TAB PO (20:11)
[2018-07-05] MEDS: FERROUS SULFATE 325MG TAB PO (20:18)
[2018-07-05] MEDS: MORPHINE 15 MG SA TAB PO (20:19)
[2018-07-05] MEDS: CARVedilol 3.125 MG TAB PO (20:19)
[2018-07-05] MEDS: NS 1,000 ML IV (20:20)
[2018-07-05 20:22] LABS: BEDSIDE GLUCOSE 79 MG/DL (80-115)
[2018-07-05] MEDS: PREGABALIN 75 MG CAP(LYRICA) PO (21:03)
[2018-07-05] MEDS: TORSEMIDE 10 MG TABLET PO (21:03)
[2018-07-05] MEDS: tiZANidine 4 MG TAB PO (21:03)
[2018-07-05] MEDS: CILOSTAZOL 100 MG TAB (PLETAL) PO (21:03)
[2018-07-05] MEDS: HUMULIN R U-500 KWIKPEN 500UNITS/ML 3ML SYRINGE (J1815 PER 5UNITS) SC (21:08)
[2018-07-05] MEDS: PEN NEEDLE (USE WITH HUMULIN U-500 INSULIN PEN) XX (21:09)
[2018-07-06] MEDS: PIPERACILLIN/TAZOBACTAM SOD 2.25 GM in D5W MINI-BAG PLUS 50 ML IV ×2 (05:32→18:45)
[2018-07-06 07:57] LABS: ALBUMIN 3.1 GM/DL (3.2-5.2); ALBUMIN/GLOBULIN RATIO 1.03 (1.00-1.93); ALKALINE PHOSPHATASE 142 U/L (45-117); ALT/SGPT 17 U/L (12-78); ANION GAP 9 MEQ/L (8-16); AST/SGOT 17 U/L (7-37); BILIRUBIN,TOTAL 0.8 MG/DL (0.2-1.0); BLOOD UREA NITROGEN 40 MG/DL (7-18); CALCIUM LEVEL 8.2 MG/DL (8.8-10.2); CARBON DIOXIDE LEVEL 26 MEQ/L (21-32); CHLORIDE LEVEL 100 MEQ/L (98-107); CREATININE FOR GFR 2.42 MG/DL (0.70-1.30); GLOMERULAR FILTRATION RATE 29.3 (>49); GLUCOSE, FASTING 310 MG/DL (70-100); SODIUM LEVEL 135 MEQ/L (136-145); TOTAL PROTEIN 6.1 GM/DL (6.4-8.2)
[2018-07-06] MEDS: DOXYCYCLINE HYCLATE 100 MG in D5W MINI-BAG PLUS 100 ML IV (08:58)
[2018-07-06] MEDS: NS 1,000 ML IV (09:00)
[2018-07-06] MEDS: HUMULIN R U-500 KWIKPEN 500UNITS/ML 3ML SYRINGE (J1815 PER 5UNITS) SC ×3 (09:01→20:30)
[2018-07-06] MEDS: PEN NEEDLE (USE WITH HUMULIN U-500 INSULIN PEN) XX ×3 (09:01→20:29)
[2018-07-06] MEDS: FEBUXOSTAT 40 MG TABLET (ULORIC) PO (09:01)
[2018-07-06] MEDS: FINASTERIDE 5 MG TAB PO (09:02)
[2018-07-06] MEDS: MAGNESIUM OXIDE 400 MG TAB (MAG-OX) PO (09:02)
[2018-07-06] MEDS: CILOSTAZOL 100 MG TAB (PLETAL) PO ×2 (09:02→21:54)
[2018-07-06] MEDS: MULTIVITAMINS/MINERALS THERAP 1 TAB PO (09:02)
[2018-07-06] MEDS: PREGABALIN 75 MG CAP(LYRICA) PO ×2 (09:02→20:31)
[2018-07-06] MEDS: DULoxetine 30 MG CAP (CYMBALTA) PO (09:02)
[2018-07-06] MEDS: TORSEMIDE 10 MG TABLET PO (09:03)
[2018-07-06] MEDS: ASPIRIN ENTERIC 325 MG TAB PO (09:03)
[2018-07-06] MEDS: predniSONE 5 MG TAB PO (09:03)
[2018-07-06] MEDS: tiZANidine 4 MG TAB PO ×3 (09:03→20:27)
[2018-07-06] MEDS: oxyBUTYnin *DITROPAN XL* 5 MG TABCR PO (09:03)
[2018-07-06] MEDS: FERROUS SULFATE 325MG TAB PO ×2 (09:04→20:27)
[2018-07-06] MEDS: SPIRONOLACTONE 25 MG TAB PO (09:04)
[2018-07-06] MEDS: MORPHINE 15 MG SA TAB PO ×2 (09:05→20:28)
[2018-07-06] MEDS: CARVedilol 3.125 MG TAB PO ×2 (09:07→20:27)
[2018-07-06 10:13] LABS: C REACTIVE PROTEIN QUANTITATIV 1.01 MG/DL (0.00-0.30)
[2018-07-06 11:51] LABS: BEDSIDE GLUCOSE 453 MG/DL (80-115)
[2018-07-06] MEDS: ACETAMINOPHEN 500 MG TAB PO (12:00)
[2018-07-06] MEDS: LINEZOLID 600 MG in APPROPRIATE DILUENT 1 EA IV (14:21)
[2018-07-06 16:57] LABS: BEDSIDE GLUCOSE 294 MG/DL (80-115)
[2018-07-06] MEDS ORDERED: GLUCAGON FOR INJ 1 MG VIAL (J1610) SC (19:15)
[2018-07-06] MEDS ORDERED: GLUCOSE 4 GM CHEW TABLET PO (19:15)
[2018-07-06] MEDS ORDERED: DEXTROSE 50% 50 ML SYRINGE IV (19:15)
[2018-07-06 19:57] LABS: BEDSIDE GLUCOSE 265 MG/DL (80-115)
[2018-07-06] MEDS: HEPARIN SOD (PORCINE) 5000 UNITS/ML VIAL SQ (20:27)
[2018-07-06] MEDS: ATORVASTATIN 20 MG TAB PO (20:29)
[2018-07-06] MEDS: TAMSULOSIN 0.4 MG CAP PO (20:29)
[2018-07-07] MEDS: PERCOCET 5MG/325MG TAB PO ×3 (00:58→16:43)
[2018-07-07] MEDS: LINEZOLID 600 MG in APPROPRIATE DILUENT 1 EA IV ×2 (02:08→13:56)
[2018-07-07 05:40] LABS: MEAN CORPUSCULAR HEMOGLOBIN 29.5 pg (27.0-33.0); MEAN CORPUSCULAR HGB CONC 33.1 g/dl (32.0-36.5); MEAN CORPUSCULAR VOLUME 89.3 fl (80.0-96.0); RED BLOOD COUNT 4.03 10^6/uL (4.30-6.10); RED CELL DISTRIBUTION WIDTH 14.7 % (11.5-14.5); WHITE BLOOD COUNT 4.5 10^3/uL (4.0-10.0)
[2018-07-07] MEDS: PIPERACILLIN/TAZOBACTAM SOD 2.25 GM in D5W MINI-BAG PLUS 50 ML IV ×2 (05:41→17:37)
[2018-07-07] MEDS: HEPARIN SOD (PORCINE) 5000 UNITS/ML VIAL SQ ×2 (05:41→13:55)
[2018-07-07 06:14] LABS: ANION GAP 8 MEQ/L (8-16); BLOOD UREA NITROGEN 41 MG/DL (7-18); C REACTIVE PROTEIN QUANTITATIV 0.64 MG/DL (0.00-0.30); CARBON DIOXIDE LEVEL 26 MEQ/L (21-32); CHLORIDE LEVEL 105 MEQ/L (98-107); CREATININE FOR GFR 2.27 MG/DL (0.70-1.30); GLOMERULAR FILTRATION RATE 31.5 (>49); GLUCOSE, FASTING 74 MG/DL (70-100); POTASSIUM SERUM 3.8 MEQ/L (3.5-5.1); SODIUM LEVEL 139 MEQ/L (136-145)
[2018-07-07 06:29] LABS: HEMOGLOBIN 11.9 g/dl (13.5-17.5); PLATELET COUNT, AUTOMATED 78 10^3/uL (150-450)
[2018-07-07 06:30] LABS: IMMATURE PLATELET FRACTION % 8.3 % (0.0-10.9)
[2018-07-07] MEDS: HUMULIN R U-500 KWIKPEN 500UNITS/ML 3ML SYRINGE (J1815 PER 5UNITS) SC ×3 (07:30→21:49)
[2018-07-07] MEDS: PEN NEEDLE (USE WITH HUMULIN U-500 INSULIN PEN) XX ×3 (07:30→21:49)
[2018-07-07 08:19] LABS: BEDSIDE GLUCOSE CONFIRMATION 59 MG/DL (LESS THAN 200)
[2018-07-07 08:27] LABS: BEDSIDE GLUCOSE 49 MG/DL (80-115)
[2018-07-07 08:32] LABS: BEDSIDE GLUCOSE 73 MG/DL (80-115)
[2018-07-07] MEDS: CILOSTAZOL 100 MG TAB (PLETAL) PO ×2 (08:51→16:43)
[2018-07-07] MEDS: FEBUXOSTAT 40 MG TABLET (ULORIC) PO (09:46)
[2018-07-07] MEDS: ASPIRIN ENTERIC 325 MG TAB PO (09:46)
[2018-07-07] MEDS: CARVedilol 3.125 MG TAB PO ×2 (09:47→21:48)
[2018-07-07] MEDS: oxyBUTYnin *DITROPAN XL* 5 MG TABCR PO (09:47)
[2018-07-07] MEDS: DULoxetine 30 MG CAP (CYMBALTA) PO (09:47)
[2018-07-07] MEDS: predniSONE 5 MG TAB PO (09:47)
[2018-07-07] MEDS: FERROUS SULFATE 325MG TAB PO ×2 (09:47→21:48)
[2018-07-07] MEDS: FINASTERIDE 5 MG TAB PO (09:47)
[2018-07-07] MEDS: tiZANidine 4 MG TAB PO ×3 (09:48→21:48)
[2018-07-07] MEDS: MAGNESIUM OXIDE 400 MG TAB (MAG-OX) PO (09:48)
[2018-07-07] MEDS: MULTIVITAMINS/MINERALS THERAP 1 TAB PO (09:48)
[2018-07-07] MEDS: PREGABALIN 75 MG CAP(LYRICA) PO ×2 (09:56→21:47)
[2018-07-07] MEDS: MORPHINE 15 MG SA TAB PO ×2 (09:57→21:47)
[2018-07-07 11:10] LABS: BEDSIDE GLUCOSE 250 MG/DL (80-115)
[2018-07-07 11:51] LABS: BEDSIDE GLUCOSE 231 MG/DL (80-115)
[2018-07-07] MEDS: HumaLOG INSULIN (NovoLOG) PER UNIT SC ×3 (12:00→21:46)
[2018-07-07 16:55] LABS: BEDSIDE GLUCOSE 323 MG/DL (80-115)
[2018-07-07 20:40] LABS: BEDSIDE GLUCOSE 383 MG/DL (80-115)
[2018-07-07] MEDS: TAMSULOSIN 0.4 MG CAP PO (21:45)
[2018-07-07] MEDS: ATORVASTATIN 20 MG TAB PO (21:46)
[2018-07-08] MEDS: LINEZOLID 600 MG in APPROPRIATE DILUENT 1 EA IV ×2 (01:36→13:44)
[2018-07-08 05:43] LABS: HEMATOCRIT 34.7 % (42.0-52.0); HEMOGLOBIN 11.3 g/dl (13.5-17.5); MEAN CORPUSCULAR HEMOGLOBIN 29.3 pg (27.0-33.0); MEAN CORPUSCULAR HGB CONC 32.6 g/dl (32.0-36.5); MEAN CORPUSCULAR VOLUME 89.9 fl (80.0-96.0); RED BLOOD COUNT 3.86 10^6/uL (4.30-6.10); RED CELL DISTRIBUTION WIDTH 14.6 % (11.5-14.5); WHITE BLOOD COUNT 3.5 10^3/uL (4.0-10.0)
[2018-07-08 05:51] LABS: PLATELET COUNT, AUTOMATED 83 10^3/uL (150-450)
[2018-07-08 05:55] LABS: ANION GAP 5 MEQ/L (8-16); BLOOD UREA NITROGEN 38 MG/DL (7-18); C REACTIVE PROTEIN QUANTITATIV 0.47 MG/DL (0.00-0.30); CALCIUM LEVEL 8.1 MG/DL (8.8-10.2); CARBON DIOXIDE LEVEL 26 MEQ/L (21-32); CHLORIDE LEVEL 106 MEQ/L (98-107); CREATININE FOR GFR 2.07 MG/DL (0.70-1.30); GLUCOSE, FASTING 233 MG/DL (70-100); SODIUM LEVEL 137 MEQ/L (136-145)
[2018-07-08] MEDS: PIPERACILLIN/TAZOBACTAM SOD 2.25 GM in D5W MINI-BAG PLUS 50 ML IV ×2 (06:20→17:09)
[2018-07-08] MEDS: PERCOCET 5MG/325MG TAB PO ×2 (07:16→16:25)
[2018-07-08] MEDS: CILOSTAZOL 100 MG TAB (PLETAL) PO ×2 (07:16→17:09)
[2018-07-08] MEDS: HUMULIN R U-500 KWIKPEN 500UNITS/ML 3ML SYRINGE (J1815 PER 5UNITS) SC ×3 (07:30→21:03)
[2018-07-08] MEDS: PEN NEEDLE (USE WITH HUMULIN U-500 INSULIN PEN) XX ×3 (07:30→21:02)
[2018-07-08] MEDS: HumaLOG INSULIN (NovoLOG) PER UNIT SC ×4 (07:30→21:00)
[2018-07-08] MEDS: MULTIVITAMINS/MINERALS THERAP 1 TAB PO (08:50)
[2018-07-08] MEDS: PREGABALIN 75 MG CAP(LYRICA) PO ×2 (08:50→21:00)
[2018-07-08] MEDS: FINASTERIDE 5 MG TAB PO (08:50)
[2018-07-08] MEDS: predniSONE 5 MG TAB PO (08:50)
[2018-07-08] MEDS: oxyBUTYnin *DITROPAN XL* 5 MG TABCR PO (08:50)
[2018-07-08] MEDS: DULoxetine 30 MG CAP (CYMBALTA) PO (08:50)
[2018-07-08] MEDS: MAGNESIUM OXIDE 400 MG TAB (MAG-OX) PO (08:51)
[2018-07-08] MEDS: ASPIRIN ENTERIC 325 MG TAB PO (08:51)
[2018-07-08] MEDS: FEBUXOSTAT 40 MG TABLET (ULORIC) PO (08:51)
[2018-07-08] MEDS: tiZANidine 4 MG TAB PO ×3 (08:51→21:01)
[2018-07-08] MEDS: FERROUS SULFATE 325MG TAB PO ×2 (08:51→21:00)
[2018-07-08] MEDS: CARVedilol 3.125 MG TAB PO ×2 (08:51→21:01)
[2018-07-08] MEDS: MORPHINE 15 MG SA TAB PO ×2 (08:52→21:02)
[2018-07-08] MEDS: HEPARIN SOD (PORCINE) 5000 UNITS/ML VIAL SQ ×2 (08:52→20:59)
[2018-07-08 09:15] LABS: BEDSIDE GLUCOSE 125 MG/DL (80-115)
[2018-07-08 12:02] LABS: BEDSIDE GLUCOSE 205 MG/DL (80-115)
[2018-07-08 16:55] LABS: BEDSIDE GLUCOSE 352 MG/DL (80-115)
[2018-07-08 20:36] LABS: BEDSIDE GLUCOSE 295 MG/DL (80-115)
[2018-07-08] MEDS: TAMSULOSIN 0.4 MG CAP PO (21:00)
[2018-07-08] MEDS: ATORVASTATIN 20 MG TAB PO (21:01)
[2018-07-09] MEDS: LINEZOLID 600 MG in APPROPRIATE DILUENT 1 EA IV (02:09)
[2018-07-09] MEDS: PIPERACILLIN/TAZOBACTAM SOD 2.25 GM in D5W MINI-BAG PLUS 50 ML IV ×2 (05:11→18:00)
[2018-07-09 05:59] LABS: HEMATOCRIT 34.9 % (42.0-52.0); HEMOGLOBIN 11.4 g/dl (13.5-17.5); MEAN CORPUSCULAR HEMOGLOBIN 30.1 pg (27.0-33.0); MEAN CORPUSCULAR HGB CONC 32.7 g/dl (32.0-36.5); MEAN CORPUSCULAR VOLUME 92.1 fl (80.0-96.0); RED BLOOD COUNT 3.79 10^6/uL (4.30-6.10)
[2018-07-09 06:05] LABS: PLATELET COUNT, AUTOMATED 78 10^3/uL (150-450)
[2018-07-09 06:06] LABS: IMMATURE PLATELET FRACTION % 10.6 % (0.0-10.9); PLATELET F 8.2
[2018-07-09 06:22] LABS: ANION GAP 8 MEQ/L (8-16); BLOOD UREA NITROGEN 33 MG/DL (7-18); C REACTIVE PROTEIN QUANTITATIV < 0.30 MG/DL (0.00-0.30); CARBON DIOXIDE LEVEL 23 MEQ/L (21-32); CHLORIDE LEVEL 109 MEQ/L (98-107); CREATININE FOR GFR 1.88 MG/DL (0.70-1.30); GLOMERULAR FILTRATION RATE 39.2 (>49); GLUCOSE, FASTING 174 MG/DL (70-100); POTASSIUM SERUM 3.9 MEQ/L (3.5-5.1); SODIUM LEVEL 140 MEQ/L (136-145)
[2018-07-09] MEDS: PEN NEEDLE (USE WITH HUMULIN U-500 INSULIN PEN) XX ×3 (07:30→21:46)
[2018-07-09] MEDS: CILOSTAZOL 100 MG TAB (PLETAL) PO ×2 (07:30→18:01)
[2018-07-09] MEDS: FEBUXOSTAT 40 MG TABLET (ULORIC) PO (09:00)
[2018-07-09] MEDS: HEPARIN SOD (PORCINE) 5000 UNITS/ML VIAL SQ ×2 (09:48→21:31)
[2018-07-09] MEDS: predniSONE 5 MG TAB PO (09:48)
[2018-07-09] MEDS: HumaLOG INSULIN (NovoLOG) PER UNIT SC ×4 (09:48→21:00)
[2018-07-09] MEDS: MAGNESIUM OXIDE 400 MG TAB (MAG-OX) PO (09:49)
[2018-07-09] MEDS: oxyBUTYnin *DITROPAN XL* 5 MG TABCR PO (09:49)
[2018-07-09] MEDS: FINASTERIDE 5 MG TAB PO (09:50)
[2018-07-09] MEDS: PREGABALIN 75 MG CAP(LYRICA) PO ×2 (09:50→21:32)
[2018-07-09] MEDS: ASPIRIN ENTERIC 325 MG TAB PO (09:50)
[2018-07-09] MEDS: DULoxetine 30 MG CAP (CYMBALTA) PO (09:51)
[2018-07-09] MEDS: MORPHINE 15 MG SA TAB PO ×2 (09:51→21:34)
[2018-07-09] MEDS: tiZANidine 4 MG TAB PO ×3 (09:51→21:32)
[2018-07-09] MEDS: FERROUS SULFATE 325MG TAB PO ×2 (09:51→21:32)
[2018-07-09] MEDS: CARVedilol 3.125 MG TAB PO ×2 (09:52→21:32)
[2018-07-09] MEDS: MULTIVITAMINS/MINERALS THERAP 1 TAB PO (09:52)
[2018-07-09] MEDS: HUMULIN R U-500 KWIKPEN 500UNITS/ML 3ML SYRINGE (J1815 PER 5UNITS) SC ×3 (09:54→21:46)
[2018-07-09 11:10] LABS: BEDSIDE GLUCOSE 170 MG/DL (80-115)
[2018-07-09] MEDS ORDERED: LIDOCAINE 2% MDV 20 ML VIAL As Ordered (14:18)
[2018-07-09] MEDS ORDERED: MIDAZOLAM INJ 2 MG/2 ML VIAL (J2250) As Ordered (14:18)
[2018-07-09] MEDS ORDERED: fentaNYL 100 MCG/2 ML INJECTION (J3010) As Ordered (14:18)
[2018-07-09] MEDS ORDERED: ISOVUE-300 61% 50ML VIAL (Q9967) As Ordered (14:19)
[2018-07-09 17:55] LABS: BEDSIDE GLUCOSE 171 MG/DL (80-115)
[2018-07-09 19:57] LABS: BEDSIDE GLUCOSE 187 MG/DL (80-115)
[2018-07-09] MEDS: ATORVASTATIN 20 MG TAB PO (21:30)
[2018-07-09] MEDS: TAMSULOSIN 0.4 MG CAP PO (21:31)
[2018-07-10] MEDS: PIPERACILLIN/TAZOBACTAM SOD 2.25 GM in D5W MINI-BAG PLUS 50 ML IV ×2 (05:33→17:43)
[2018-07-10 06:35] LABS: HEMATOCRIT 40.2 % (42.0-52.0); HEMOGLOBIN 12.7 g/dl (13.5-17.5); MEAN CORPUSCULAR HEMOGLOBIN 29.3 pg (27.0-33.0); MEAN CORPUSCULAR HGB CONC 31.6 g/dl (32.0-36.5); MEAN CORPUSCULAR VOLUME 92.8 fl (80.0-96.0); RED BLOOD COUNT 4.33 10^6/uL (4.30-6.10); RED CELL DISTRIBUTION WIDTH 15.2 % (11.5-14.5); WHITE BLOOD COUNT 3.6 10^3/uL (4.0-10.0)
[2018-07-10 06:36] LABS: PLATELET COUNT, AUTOMATED 85 10^3/uL (150-450)
[2018-07-10 06:37] LABS: IMMATURE PLATELET FRACTION % 11.6 % (0.0-10.9)
[2018-07-10 06:57] LABS: ANION GAP 6 MEQ/L (8-16); BLOOD UREA NITROGEN 24 MG/DL (7-18); C REACTIVE PROTEIN QUANTITATIV < 0.30 MG/DL (0.00-0.30); CALCIUM LEVEL 8.6 MG/DL (8.8-10.2); CARBON DIOXIDE LEVEL 26 MEQ/L (21-32); CHLORIDE LEVEL 112 MEQ/L (98-107); CREATININE FOR GFR 1.63 MG/DL (0.70-1.30); GLOMERULAR FILTRATION RATE 46.2 (>49); GLUCOSE, FASTING 48 MG/DL (70-100); POTASSIUM SERUM 4.1 MEQ/L (3.5-5.1); SODIUM LEVEL 144 MEQ/L (136-145)
[2018-07-10 07:25] LABS: BEDSIDE GLUCOSE 72 MG/DL (80-115)
[2018-07-10] MEDS: PEN NEEDLE (USE WITH HUMULIN U-500 INSULIN PEN) XX ×3 (07:30→20:38)
[2018-07-10] MEDS: HUMULIN R U-500 KWIKPEN 500UNITS/ML 3ML SYRINGE (J1815 PER 5UNITS) SC ×3 (07:30→20:38)
[2018-07-10] MEDS: HumaLOG INSULIN (NovoLOG) PER UNIT SC ×4 (07:30→20:35)
[2018-07-10] MEDS: oxyBUTYnin *DITROPAN XL* 5 MG TABCR PO (08:23)
[2018-07-10] MEDS: DULoxetine 30 MG CAP (CYMBALTA) PO (08:23)
[2018-07-10] MEDS: FEBUXOSTAT 40 MG TABLET (ULORIC) PO (08:23)
[2018-07-10] MEDS: predniSONE 5 MG TAB PO (08:23)
[2018-07-10] MEDS: CARVedilol 3.125 MG TAB PO ×2 (08:24→20:37)
[2018-07-10] MEDS: tiZANidine 4 MG TAB PO ×3 (08:25→20:37)
[2018-07-10] MEDS: MULTIVITAMINS/MINERALS THERAP 1 TAB PO (08:25)
[2018-07-10] MEDS: PREGABALIN 75 MG CAP(LYRICA) PO ×2 (08:25→20:37)
[2018-07-10] MEDS: MAGNESIUM OXIDE 400 MG TAB (MAG-OX) PO (08:25)
[2018-07-10] MEDS: FERROUS SULFATE 325MG TAB PO ×2 (08:25→20:37)
[2018-07-10] MEDS: ASPIRIN ENTERIC 325 MG TAB PO (08:26)
[2018-07-10] MEDS: CILOSTAZOL 100 MG TAB (PLETAL) PO ×2 (08:26→16:15)
[2018-07-10] MEDS: FINASTERIDE 5 MG TAB PO (08:26)
[2018-07-10] MEDS: MORPHINE 15 MG SA TAB PO ×2 (08:26→20:36)
[2018-07-10] MEDS: HEPARIN SOD (PORCINE) 5000 UNITS/ML VIAL SQ ×2 (08:28→20:36)
[2018-07-10 11:22] LABS: BEDSIDE GLUCOSE 270 MG/DL (80-115)
[2018-07-10] MEDS: SPIRONOLACTONE 25 MG TAB PO (13:53)
[2018-07-10] MEDS: TORSEMIDE 20 MG TAB PO ×2 (13:53→16:15)
[2018-07-10] MEDS ORDERED: LIDOCAINE 1% MDV 20ML VIAL As Ordered (14:37)
[2018-07-10] MEDS: PERCOCET 5MG/325MG TAB PO ×2 (16:19→17:44)
[2018-07-10 16:24] LABS: BEDSIDE GLUCOSE 266 MG/DL (80-115)
[2018-07-10 20:19] LABS: BEDSIDE GLUCOSE 299 MG/DL (80-115)
[2018-07-10] MEDS: ATORVASTATIN 20 MG TAB PO (20:35)
[2018-07-10] MEDS: TAMSULOSIN 0.4 MG CAP PO (20:36)
[2018-07-11] MEDS: PIPERACILLIN/TAZOBACTAM SOD 2.25 GM in D5W MINI-BAG PLUS 50 ML IV ×2 (05:31→17:05)
[2018-07-11] MEDS: SODIUM CHLORIDE 0.9% INJ 10 ML SYR IV ×2 (05:32→17:05)
[2018-07-11 05:49] LABS: HEMOGLOBIN 11.3 g/dl (13.5-17.5); MEAN CORPUSCULAR HEMOGLOBIN 30.1 pg (27.0-33.0); MEAN CORPUSCULAR HGB CONC 32.3 g/dl (32.0-36.5); MEAN CORPUSCULAR VOLUME 93.1 fl (80.0-96.0); PLATELET COUNT, AUTOMATED 76 10^3/uL (150-450); RED BLOOD COUNT 3.76 10^6/uL (4.30-6.10); RED CELL DISTRIBUTION WIDTH 15.2 % (11.5-14.5); WHITE BLOOD COUNT 3.6 10^3/uL (4.0-10.0)
[2018-07-11 06:06] LABS: ANION GAP 7 MEQ/L (8-16); BLOOD UREA NITROGEN 23 MG/DL (7-18); CALCIUM LEVEL 8.4 MG/DL (8.8-10.2); CARBON DIOXIDE LEVEL 25 MEQ/L (21-32); CHLORIDE LEVEL 110 MEQ/L (98-107); GLUCOSE, FASTING 280 MG/DL (70-100); POTASSIUM SERUM 4.4 MEQ/L (3.5-5.1); SODIUM LEVEL 142 MEQ/L (136-145)
[2018-07-11] MEDS: PEN NEEDLE (USE WITH HUMULIN U-500 INSULIN PEN) XX ×3 (07:30→22:02)
[2018-07-11] MEDS: HUMULIN R U-500 KWIKPEN 500UNITS/ML 3ML SYRINGE (J1815 PER 5UNITS) SC ×3 (07:30→22:04)
[2018-07-11] MEDS: HumaLOG INSULIN (NovoLOG) PER UNIT SC ×4 (08:54→21:00)
[2018-07-11] MEDS: FEBUXOSTAT 40 MG TABLET (ULORIC) PO (08:55)
[2018-07-11] MEDS: FINASTERIDE 5 MG TAB PO (08:56)
[2018-07-11] MEDS: CARVedilol 3.125 MG TAB PO ×2 (08:56→22:01)
[2018-07-11] MEDS: MORPHINE 15 MG SA TAB PO ×2 (08:56→22:00)
[2018-07-11] MEDS: DULoxetine 30 MG CAP (CYMBALTA) PO (08:56)
[2018-07-11] MEDS: MULTIVITAMINS/MINERALS THERAP 1 TAB PO (08:56)
[2018-07-11] MEDS: SPIRONOLACTONE 25 MG TAB PO (08:56)
[2018-07-11] MEDS: ASPIRIN ENTERIC 325 MG TAB PO (08:56)
[2018-07-11] MEDS: MAGNESIUM OXIDE 400 MG TAB (MAG-OX) PO (08:57)
[2018-07-11] MEDS: HEPARIN SOD (PORCINE) 5000 UNITS/ML VIAL SQ ×2 (08:57→22:14)
[2018-07-11] MEDS: CILOSTAZOL 100 MG TAB (PLETAL) PO ×2 (08:57→16:09)
[2018-07-11] MEDS: tiZANidine 4 MG TAB PO ×3 (08:57→21:59)
[2018-07-11] MEDS: TORSEMIDE 20 MG TAB PO ×2 (08:58→16:09)
[2018-07-11] MEDS: oxyBUTYnin *DITROPAN XL* 5 MG TABCR PO (08:58)
[2018-07-11] MEDS: PANTOPRAZOLE 20 MG TAB PO (08:59)
[2018-07-11] MEDS: FERROUS SULFATE 325MG TAB PO ×2 (08:59→21:59)
[2018-07-11] MEDS: predniSONE 5 MG TAB PO (08:59)
[2018-07-11] MEDS: PREGABALIN 75 MG CAP(LYRICA) PO ×2 (08:59→22:01)
[2018-07-11 12:15] LABS: BEDSIDE GLUCOSE 177 MG/DL (80-115)
[2018-07-11] MEDS: PERCOCET 5MG/325MG TAB PO (14:51)
[2018-07-11 16:49] LABS: BEDSIDE GLUCOSE 90 MG/DL (80-115)
[2018-07-11 21:39] LABS: BEDSIDE GLUCOSE 141 MG/DL (80-115)
[2018-07-11] MEDS: TAMSULOSIN 0.4 MG CAP PO (21:59)
[2018-07-11] MEDS: ATORVASTATIN 20 MG TAB PO (22:02)
[2018-07-11] MEDS: ONDANSETRON 4MG/2ML VIAL (J2405) IV (22:38)
[2018-07-12] MEDS: PERCOCET 5MG/325MG TAB PO ×2 (01:15→18:04)
[2018-07-12] MEDS: SODIUM CHLORIDE 0.9% INJ 10 ML SYR IV ×2 (06:03→18:00)
[2018-07-12] MEDS: PIPERACILLIN/TAZOBACTAM SOD 2.25 GM in D5W MINI-BAG PLUS 50 ML IV ×3 (06:04→18:00)
[2018-07-12 06:28] LABS: HEMATOCRIT 36.5 % (42.0-52.0); HEMOGLOBIN 11.7 g/dl (13.5-17.5); MEAN CORPUSCULAR HGB CONC 32.1 g/dl (32.0-36.5); MEAN CORPUSCULAR VOLUME 93.6 fl (80.0-96.0); RED CELL DISTRIBUTION WIDTH 15.2 % (11.5-14.5); WHITE BLOOD COUNT 4.1 10^3/uL (4.0-10.0)
[2018-07-12 06:30] LABS: PLATELET COUNT, AUTOMATED 81 10^3/uL (150-450)
[2018-07-12 06:32] LABS: IMMATURE PLATELET FRACTION % 10.9 % (0.0-10.9)
[2018-07-12 06:55] LABS: ANION GAP 7 MEQ/L (8-16); BLOOD UREA NITROGEN 27 MG/DL (7-18); CALCIUM LEVEL 9.1 MG/DL (8.8-10.2); CARBON DIOXIDE LEVEL 26 MEQ/L (21-32); CHLORIDE LEVEL 108 MEQ/L (98-107); CREATININE FOR GFR 1.67 MG/DL (0.70-1.30); GLOMERULAR FILTRATION RATE 44.9 (>49); GLUCOSE, FASTING 48 MG/DL (70-100); POTASSIUM SERUM 4.1 MEQ/L (3.5-5.1); SODIUM LEVEL 141 MEQ/L (136-145)
[2018-07-12] MEDS: HumaLOG INSULIN (NovoLOG) PER UNIT SC ×4 (07:30→20:30)
[2018-07-12] MEDS: CILOSTAZOL 100 MG TAB (PLETAL) PO ×2 (07:30→17:30)
[2018-07-12] MEDS: PEN NEEDLE (USE WITH HUMULIN U-500 INSULIN PEN) XX ×3 (07:30→20:33)
[2018-07-12] MEDS: HUMULIN R U-500 KWIKPEN 500UNITS/ML 3ML SYRINGE (J1815 PER 5UNITS) SC ×3 (07:30→20:34)
[2018-07-12] MEDS: predniSONE 5 MG TAB PO (09:00)
[2018-07-12] MEDS: FEBUXOSTAT 40 MG TABLET (ULORIC) PO (09:00)
[2018-07-12] MEDS: MAGNESIUM OXIDE 400 MG TAB (MAG-OX) PO (09:00)
[2018-07-12] MEDS: SPIRONOLACTONE 25 MG TAB PO (09:00)
[2018-07-12] MEDS: tiZANidine 4 MG TAB PO ×3 (09:00→20:29)
[2018-07-12] MEDS: MORPHINE 15 MG SA TAB PO ×2 (09:00→20:31)
[2018-07-12] MEDS: PANTOPRAZOLE 20 MG TAB PO (09:00)
[2018-07-12] MEDS: FERROUS SULFATE 325MG TAB PO ×2 (09:00→20:29)
[2018-07-12] MEDS: oxyBUTYnin *DITROPAN XL* 5 MG TABCR PO (09:00)
[2018-07-12] MEDS: DULoxetine 30 MG CAP (CYMBALTA) PO (09:00)
[2018-07-12] MEDS: FINASTERIDE 5 MG TAB PO (09:00)
[2018-07-12] MEDS: MULTIVITAMINS/MINERALS THERAP 1 TAB PO (09:00)
[2018-07-12] MEDS: PREGABALIN 75 MG CAP(LYRICA) PO ×2 (09:00→20:29)
[2018-07-12] MEDS: CARVedilol 3.125 MG TAB PO ×2 (09:00→20:29)
[2018-07-12] MEDS: ASPIRIN ENTERIC 325 MG TAB PO (09:00)
[2018-07-12] MEDS: TORSEMIDE 20 MG TAB PO ×2 (09:00→17:00)
[2018-07-12 10:04] LABS: BEDSIDE GLUCOSE 189 MG/DL (80-115)
[2018-07-12 11:30] LABS: BEDSIDE GLUCOSE 193 MG/DL (80-115)
[2018-07-12] MEDS: LIDOCAINE 1% MDV 20ML VIAL As Ordered (16:21)
[2018-07-12] MEDS: BUPIVACAINE HCL 0.5% 10 ML VIAL As Ordered (16:21)
[2018-07-12] MEDS ORDERED: MIDAZOLAM INJ 2 MG/2 ML VIAL (J2250) As Ordered (16:22)
[2018-07-12] MEDS ORDERED: PROPOFOL 200 MG/20 ML VIAL As Ordered (16:22)
[2018-07-12] MEDS: LR 1,000 ML IV (17:00)
[2018-07-12] MEDS ORDERED: NORCO, ANEXSIA 5/325MG TABLET (HYDROcodone/ACETAMINOPHEN) PO (17:00)
[2018-07-12] MEDS ORDERED: ONDANSETRON 4MG/2ML VIAL (J2405) IV (17:00)
[2018-07-12 17:41] LABS: BEDSIDE GLUCOSE 230 MG/DL (80-115)
[2018-07-12 19:57] LABS: BEDSIDE GLUCOSE 397 MG/DL (80-115)
[2018-07-12] MEDS: ATORVASTATIN 20 MG TAB PO (20:28)
[2018-07-12] MEDS: ACETAMINOPHEN 500 MG TAB PO (20:29)
[2018-07-12] MEDS: TAMSULOSIN 0.4 MG CAP PO (20:30)
[2018-07-13] MEDS: PIPERACILLIN/TAZOBACTAM SOD 2.25 GM in D5W MINI-BAG PLUS 50 ML IV ×4 (00:04→17:48)
[2018-07-13] MEDS: SODIUM CHLORIDE 0.9% INJ 10 ML SYR IV ×3 (01:12→17:48)
[2018-07-13 05:47] LABS: HEMATOCRIT 33.4 % (42.0-52.0); HEMOGLOBIN 10.6 g/dl (13.5-17.5); MEAN CORPUSCULAR HEMOGLOBIN 29.9 pg (27.0-33.0); MEAN CORPUSCULAR HGB CONC 31.7 g/dl (32.0-36.5); MEAN CORPUSCULAR VOLUME 94.1 fl (80.0-96.0); PLATELET COUNT, AUTOMATED 71 10^3/uL (150-450); RED BLOOD COUNT 3.55 10^6/uL (4.30-6.10); RED CELL DISTRIBUTION WIDTH 15.1 % (11.5-14.5); WHITE BLOOD COUNT 3.7 10^3/uL (4.0-10.0)
[2018-07-13 06:10] LABS: ANION GAP 6 MEQ/L (8-16); BLOOD UREA NITROGEN 32 MG/DL (7-18); CALCIUM LEVEL 7.8 MG/DL (8.8-10.2); CARBON DIOXIDE LEVEL 27 MEQ/L (21-32); CHLORIDE LEVEL 105 MEQ/L (98-107); CREATININE FOR GFR 1.98 MG/DL (0.70-1.30); GLOMERULAR FILTRATION RATE 36.9 (>49); GLUCOSE, FASTING 264 MG/DL (70-100); POTASSIUM SERUM 4.8 MEQ/L (3.5-5.1); SODIUM LEVEL 138 MEQ/L (136-145)
[2018-07-13] MEDS: CILOSTAZOL 100 MG TAB (PLETAL) PO ×2 (07:30→17:30)
[2018-07-13] MEDS: HumaLOG INSULIN (NovoLOG) PER UNIT SC ×4 (07:30→21:43)
[2018-07-13] MEDS: HUMULIN R U-500 KWIKPEN 500UNITS/ML 3ML SYRINGE (J1815 PER 5UNITS) SC ×3 (07:30→21:43)
[2018-07-13] MEDS: PEN NEEDLE (USE WITH HUMULIN U-500 INSULIN PEN) XX ×3 (07:30→21:44)
[2018-07-13] MEDS: CARVedilol 3.125 MG TAB PO ×2 (08:54→21:43)
[2018-07-13] MEDS: SPIRONOLACTONE 25 MG TAB PO (08:54)
[2018-07-13] MEDS: oxyBUTYnin *DITROPAN XL* 5 MG TABCR PO (08:55)
[2018-07-13] MEDS: predniSONE 5 MG TAB PO (08:55)
[2018-07-13] MEDS: ASPIRIN ENTERIC 325 MG TAB PO (08:55)
[2018-07-13] MEDS: MAGNESIUM OXIDE 400 MG TAB (MAG-OX) PO (08:55)
[2018-07-13] MEDS: FERROUS SULFATE 325MG TAB PO ×2 (08:55→21:42)
[2018-07-13] MEDS: TORSEMIDE 20 MG TAB PO ×2 (08:55→16:12)
[2018-07-13] MEDS: PREGABALIN 75 MG CAP(LYRICA) PO ×2 (08:55→21:42)
[2018-07-13] MEDS: DULoxetine 30 MG CAP (CYMBALTA) PO (08:55)
[2018-07-13] MEDS: MORPHINE 15 MG SA TAB PO ×2 (08:55→21:42)
[2018-07-13] MEDS: HEPARIN SOD (PORCINE) 5000 UNITS/ML VIAL SQ ×2 (08:56→21:43)
[2018-07-13] MEDS: FINASTERIDE 5 MG TAB PO (08:56)
[2018-07-13] MEDS: FEBUXOSTAT 40 MG TABLET (ULORIC) PO (08:56)
[2018-07-13] MEDS: MULTIVITAMINS/MINERALS THERAP 1 TAB PO (08:56)
[2018-07-13] MEDS: PANTOPRAZOLE 20 MG TAB PO (08:56)
[2018-07-13] MEDS: tiZANidine 4 MG TAB PO ×3 (08:56→21:43)
[2018-07-13 11:59] LABS: AMORPHOUS SEDIMENT SMALL (NEGATIVE); APPEARANCE, URINE CLEAR (CLEAR); BACTERIA, URINE AUTO NEGATIVE (NEGATIVE); BILIRUBIN, URINE AUTO NEGATIVE (NEGATIVE); BLOOD, URINE BLOOD 1+ (NEGATIVE); COLOR, URINE YELLOW (YELLOW); GLUCOSE, URINE (UA) AUTO 3+ mg/dL (NEGATIVE); KETONE, URINE AUTO NEGATIVE (NEGATIVE); LEUKOCYTE ESTERASE, URINE AUTO NEGATIVE (NEGATIVE); NITRITE, URINE AUTO NEGATIVE (NEGATIVE); PROTEIN, URINE AUTO NEGATIVE (NEGATIVE); RBC, URINE AUTO 1 /HPF (0-3); SQUAMOUS EPITHELIAL CELL UR AU 1 /HPF (0-6); UROBILINOGEN, URINE AUTO 0.2 mg/dL (0.0-2.0); WBC, URINE AUTO 0 /HPF (0-3)
[2018-07-13 12:00] LABS: BEDSIDE GLUCOSE 213 MG/DL (80-115)
[2018-07-13 16:55] LABS: BEDSIDE GLUCOSE 114 MG/DL (80-115)
[2018-07-13 20:49] LABS: BEDSIDE GLUCOSE 107 MG/DL (80-115)
[2018-07-13] MEDS: ATORVASTATIN 20 MG TAB PO (21:41)
[2018-07-13] MEDS: TAMSULOSIN 0.4 MG CAP PO (21:41)
[2018-07-14] MEDS: PIPERACILLIN/TAZOBACTAM SOD 2.25 GM in D5W MINI-BAG PLUS 50 ML IV ×4 (01:09→18:45)
[2018-07-14] MEDS: SODIUM CHLORIDE 0.9% INJ 10 ML SYR IV ×2 (05:34→20:49)
[2018-07-14 05:51] LABS: HEMATOCRIT 35.7 % (42.0-52.0); HEMOGLOBIN 11.3 g/dl (13.5-17.5); MEAN CORPUSCULAR HEMOGLOBIN 29.9 pg (27.0-33.0); MEAN CORPUSCULAR HGB CONC 31.7 g/dl (32.0-36.5); MEAN CORPUSCULAR VOLUME 94.4 fl (80.0-96.0); RED BLOOD COUNT 3.78 10^6/uL (4.30-6.10); RED CELL DISTRIBUTION WIDTH 15.4 % (11.5-14.5); WHITE BLOOD COUNT 3.6 10^3/uL (4.0-10.0)
[2018-07-14 05:52] LABS: PLATELET COUNT, AUTOMATED 72 10^3/uL (150-450)
[2018-07-14 05:53] LABS: IMMATURE PLATELET FRACTION % 10.9 % (0.0-10.9)
[2018-07-14 06:18] LABS: ANION GAP 9 MEQ/L (8-16); BLOOD UREA NITROGEN 36 MG/DL (7-18); CALCIUM LEVEL 8.4 MG/DL (8.8-10.2); CARBON DIOXIDE LEVEL 25 MEQ/L (21-32); CHLORIDE LEVEL 106 MEQ/L (98-107); CREATININE FOR GFR 1.99 MG/DL (0.70-1.30); GLOMERULAR FILTRATION RATE 36.7 (>49); GLUCOSE, FASTING 192 MG/DL (70-100); POTASSIUM SERUM 4.5 MEQ/L (3.5-5.1); SODIUM LEVEL 140 MEQ/L (136-145)
[2018-07-14 07:39] LABS: ALBUMIN 3.2 GM/DL (3.2-5.2)
[2018-07-14] MEDS: HUMULIN R U-500 KWIKPEN 500UNITS/ML 3ML SYRINGE (J1815 PER 5UNITS) SC ×3 (09:12→20:51)
[2018-07-14] MEDS: MAGNESIUM OXIDE 400 MG TAB (MAG-OX) PO (09:13)
[2018-07-14] MEDS: ASPIRIN ENTERIC 325 MG TAB PO (09:13)
[2018-07-14] MEDS: FINASTERIDE 5 MG TAB PO (09:14)
[2018-07-14] MEDS: PREGABALIN 75 MG CAP(LYRICA) PO ×2 (09:14→20:47)
[2018-07-14] MEDS: DULoxetine 30 MG CAP (CYMBALTA) PO (09:14)
[2018-07-14] MEDS: oxyBUTYnin *DITROPAN XL* 5 MG TABCR PO (09:14)
[2018-07-14] MEDS: FERROUS SULFATE 325MG TAB PO ×2 (09:14→20:47)
[2018-07-14] MEDS: FEBUXOSTAT 40 MG TABLET (ULORIC) PO (09:14)
[2018-07-14] MEDS: PANTOPRAZOLE 20 MG TAB PO (09:14)
[2018-07-14] MEDS: tiZANidine 4 MG TAB PO ×3 (09:15→20:48)
[2018-07-14] MEDS: SPIRONOLACTONE 25 MG TAB PO (09:15)
[2018-07-14] MEDS: MULTIVITAMINS/MINERALS THERAP 1 TAB PO (09:15)
[2018-07-14] MEDS: TORSEMIDE 20 MG TAB PO (09:15)
[2018-07-14] MEDS: predniSONE 5 MG TAB PO (09:16)
[2018-07-14] MEDS: MORPHINE 15 MG SA TAB PO ×2 (09:17→20:50)
[2018-07-14] MEDS: PEN NEEDLE (USE WITH HUMULIN U-500 INSULIN PEN) XX ×3 (09:19→20:51)
[2018-07-14] MEDS: HumaLOG INSULIN (NovoLOG) PER UNIT SC ×4 (09:19→20:22)
[2018-07-14] MEDS: CARVedilol 3.125 MG TAB PO ×2 (09:21→20:48)
[2018-07-14] MEDS: HEPARIN SOD (PORCINE) 5000 UNITS/ML VIAL SQ ×2 (09:22→20:51)
[2018-07-14] MEDS: CILOSTAZOL 100 MG TAB (PLETAL) PO ×2 (11:19→20:49)
[2018-07-14 11:25] LABS: BEDSIDE GLUCOSE 309 MG/DL (80-115)
[2018-07-14] MEDS: CALCIUM CARBONATE 500 MG CHEW U/D PO ×2 (13:43→20:47)
[2018-07-14 16:34] LABS: BEDSIDE GLUCOSE 142 MG/DL (80-115)
[2018-07-14] MEDS: TORSEMIDE 10 MG TABLET PO (17:18)
[2018-07-14 20:18] LABS: BEDSIDE GLUCOSE 209 MG/DL (80-115)
[2018-07-14] MEDS: ATORVASTATIN 20 MG TAB PO (20:47)
[2018-07-14] MEDS: TAMSULOSIN 0.4 MG CAP PO (20:48)
[2018-07-15] MEDS: PIPERACILLIN/TAZOBACTAM SOD 2.25 GM in D5W MINI-BAG PLUS 50 ML IV ×4 (00:17→17:16)
[2018-07-15 05:58] LABS: HEMATOCRIT 33.6 % (42.0-52.0); HEMOGLOBIN 10.5 g/dl (13.5-17.5); MEAN CORPUSCULAR HEMOGLOBIN 29.6 pg (27.0-33.0); MEAN CORPUSCULAR HGB CONC 31.3 g/dl (32.0-36.5); MEAN CORPUSCULAR VOLUME 94.6 fl (80.0-96.0); PLATELET COUNT, AUTOMATED 63 10^3/uL (150-450); RED BLOOD COUNT 3.55 10^6/uL (4.30-6.10); RED CELL DISTRIBUTION WIDTH 15.3 % (11.5-14.5); WHITE BLOOD COUNT 2.9 10^3/uL (4.0-10.0)
[2018-07-15] MEDS: SODIUM CHLORIDE 0.9% INJ 10 ML SYR IV ×2 (06:00→18:43)
[2018-07-15 06:23] LABS: ANION GAP 7 MEQ/L (8-16); BLOOD UREA NITROGEN 35 MG/DL (7-18); CALCIUM LEVEL 7.8 MG/DL (8.8-10.2); CARBON DIOXIDE LEVEL 26 MEQ/L (21-32); CHLORIDE LEVEL 110 MEQ/L (98-107); GLOMERULAR FILTRATION RATE 38.7 (>49); GLUCOSE, FASTING 169 MG/DL (70-100); POTASSIUM SERUM 4.4 MEQ/L (3.5-5.1); SODIUM LEVEL 143 MEQ/L (136-145)
[2018-07-15] MEDS: TORSEMIDE 10 MG TABLET PO ×2 (08:43→17:14)
[2018-07-15] MEDS: PANTOPRAZOLE 20 MG TAB PO (08:44)
[2018-07-15] MEDS: PREGABALIN 75 MG CAP(LYRICA) PO ×2 (08:44→20:58)
[2018-07-15] MEDS: PEN NEEDLE (USE WITH HUMULIN U-500 INSULIN PEN) XX ×3 (08:44→21:01)
[2018-07-15] MEDS: HEPARIN SOD (PORCINE) 5000 UNITS/ML VIAL SQ ×2 (08:44→21:00)
[2018-07-15] MEDS: oxyBUTYnin *DITROPAN XL* 5 MG TABCR PO (08:44)
[2018-07-15] MEDS: HUMULIN R U-500 KWIKPEN 500UNITS/ML 3ML SYRINGE (J1815 PER 5UNITS) SC ×3 (08:45→21:01)
[2018-07-15] MEDS: CALCIUM CARBONATE 500 MG CHEW U/D PO ×2 (08:45→20:58)
[2018-07-15] MEDS: predniSONE 5 MG TAB PO (08:46)
[2018-07-15] MEDS: FEBUXOSTAT 40 MG TABLET (ULORIC) PO (08:46)
[2018-07-15] MEDS: ASPIRIN ENTERIC 325 MG TAB PO (08:46)
[2018-07-15] MEDS: MULTIVITAMINS/MINERALS THERAP 1 TAB PO (08:46)
[2018-07-15] MEDS: SPIRONOLACTONE 25 MG TAB PO (08:46)
[2018-07-15] MEDS: DULoxetine 30 MG CAP (CYMBALTA) PO (08:46)
[2018-07-15] MEDS: FINASTERIDE 5 MG TAB PO (08:46)
[2018-07-15] MEDS: MAGNESIUM OXIDE 400 MG TAB (MAG-OX) PO (08:46)
[2018-07-15] MEDS: FERROUS SULFATE 325MG TAB PO ×2 (08:47→20:59)
[2018-07-15] MEDS: tiZANidine 4 MG TAB PO ×3 (08:47→20:59)
[2018-07-15] MEDS: HumaLOG INSULIN (NovoLOG) PER UNIT SC ×4 (08:48→21:00)
[2018-07-15] MEDS: MORPHINE 15 MG SA TAB PO ×2 (08:49→20:59)
[2018-07-15] MEDS: CARVedilol 3.125 MG TAB PO ×2 (08:50→20:58)
[2018-07-15] MEDS: CILOSTAZOL 100 MG TAB (PLETAL) PO ×2 (11:31→17:11)
[2018-07-15 11:38] LABS: BEDSIDE GLUCOSE 244 MG/DL (80-115)
[2018-07-15 16:52] LABS: BEDSIDE GLUCOSE 229 MG/DL (80-115)
[2018-07-15 20:38] LABS: BEDSIDE GLUCOSE 253 MG/DL (80-115)
[2018-07-15] MEDS: TAMSULOSIN 0.4 MG CAP PO (20:58)
[2018-07-15] MEDS: ATORVASTATIN 20 MG TAB PO (21:00)
[2018-07-16] MEDS: PIPERACILLIN/TAZOBACTAM SOD 2.25 GM in D5W MINI-BAG PLUS 50 ML IV ×5 (00:09→23:53)
[2018-07-16] MEDS: SODIUM CHLORIDE 0.9% INJ 10 ML SYR IV ×3 (01:17→17:44)
[2018-07-16 05:52] LABS: HEMATOCRIT 34.5 % (42.0-52.0); HEMOGLOBIN 10.9 g/dl (13.5-17.5); MEAN CORPUSCULAR HEMOGLOBIN 29.9 pg (27.0-33.0); MEAN CORPUSCULAR HGB CONC 31.6 g/dl (32.0-36.5); MEAN CORPUSCULAR VOLUME 94.8 fl (80.0-96.0); RED BLOOD COUNT 3.64 10^6/uL (4.30-6.10); RED CELL DISTRIBUTION WIDTH 15.4 % (11.5-14.5); WHITE BLOOD COUNT 2.8 10^3/uL (4.0-10.0)
[2018-07-16 05:54] LABS: IMMATURE PLATELET FRACTION % 10.6 % (0.0-10.9); PLATELET COUNT, AUTOMATED 72 10^3/uL (150-450)
[2018-07-16 06:26] LABS: ANION GAP 7 MEQ/L (8-16); BLOOD UREA NITROGEN 38 MG/DL (7-18); CALCIUM LEVEL 8.1 MG/DL (8.8-10.2); CARBON DIOXIDE LEVEL 27 MEQ/L (21-32); CHLORIDE LEVEL 110 MEQ/L (98-107); CREATININE FOR GFR 1.96 MG/DL (0.70-1.30); GLOMERULAR FILTRATION RATE 37.3 (>49); GLUCOSE, FASTING 85 MG/DL (70-100); POTASSIUM SERUM 4.3 MEQ/L (3.5-5.1); SODIUM LEVEL 144 MEQ/L (136-145)
[2018-07-16] MEDS: HumaLOG INSULIN (NovoLOG) PER UNIT SC ×4 (07:30→21:38)
[2018-07-16] MEDS: PEN NEEDLE (USE WITH HUMULIN U-500 INSULIN PEN) XX ×3 (07:30→21:42)
[2018-07-16] MEDS: HUMULIN R U-500 KWIKPEN 500UNITS/ML 3ML SYRINGE (J1815 PER 5UNITS) SC ×4 (07:30→21:42)
[2018-07-16] MEDS: CILOSTAZOL 100 MG TAB (PLETAL) PO ×2 (07:50→17:44)
[2018-07-16] MEDS: FEBUXOSTAT 40 MG TABLET (ULORIC) PO (07:51)
[2018-07-16] MEDS: MAGNESIUM OXIDE 400 MG TAB (MAG-OX) PO (07:51)
[2018-07-16] MEDS: oxyBUTYnin *DITROPAN XL* 5 MG TABCR PO (07:51)
[2018-07-16] MEDS: FERROUS SULFATE 325MG TAB PO ×2 (07:51→21:41)
[2018-07-16] MEDS: DULoxetine 30 MG CAP (CYMBALTA) PO (07:52)
[2018-07-16] MEDS: predniSONE 5 MG TAB PO (07:52)
[2018-07-16] MEDS: CARVedilol 3.125 MG TAB PO ×2 (07:52→21:41)
[2018-07-16] MEDS: CALCIUM CARBONATE 500 MG CHEW U/D PO ×2 (07:52→21:40)
[2018-07-16] MEDS: SPIRONOLACTONE 25 MG TAB PO (07:52)
[2018-07-16] MEDS: MORPHINE 15 MG SA TAB PO ×2 (07:52→21:40)
[2018-07-16] MEDS: tiZANidine 4 MG TAB PO ×3 (07:53→21:41)
[2018-07-16] MEDS: MULTIVITAMINS/MINERALS THERAP 1 TAB PO (07:53)
[2018-07-16] MEDS: FINASTERIDE 5 MG TAB PO (07:53)
[2018-07-16] MEDS: PREGABALIN 75 MG CAP(LYRICA) PO ×2 (07:53→21:40)
[2018-07-16] MEDS: PANTOPRAZOLE 20 MG TAB PO (07:53)
[2018-07-16] MEDS: TORSEMIDE 10 MG TABLET PO ×2 (07:53→17:44)
[2018-07-16] MEDS: ASPIRIN ENTERIC 325 MG TAB PO (07:53)
[2018-07-16] MEDS: HEPARIN SOD (PORCINE) 5000 UNITS/ML VIAL SQ ×2 (07:54→21:39)
[2018-07-16 11:45] LABS: BEDSIDE GLUCOSE 184 MG/DL (80-115)
[2018-07-16 17:17] LABS: BEDSIDE GLUCOSE 230 MG/DL (80-115)
[2018-07-16 19:53] LABS: BEDSIDE GLUCOSE 321 MG/DL (80-115)
[2018-07-16] MEDS: ATORVASTATIN 20 MG TAB PO (21:40)
[2018-07-16] MEDS: TAMSULOSIN 0.4 MG CAP PO (21:40)
[2018-07-17] MEDS: SODIUM CHLORIDE 0.9% INJ 10 ML SYR IV ×2 (00:45→05:29)
[2018-07-17] MEDS: PERCOCET 5MG/325MG TAB PO (00:53)
[2018-07-17] MEDS: PIPERACILLIN/TAZOBACTAM SOD 2.25 GM in D5W MINI-BAG PLUS 50 ML IV ×2 (05:29→12:00)
[2018-07-17 05:48] LABS: HEMATOCRIT 32.9 % (42.0-52.0); HEMOGLOBIN 10.2 g/dl (13.5-17.5); MEAN CORPUSCULAR HEMOGLOBIN 29.4 pg (27.0-33.0); MEAN CORPUSCULAR VOLUME 94.8 fl (80.0-96.0); RED BLOOD COUNT 3.47 10^6/uL (4.30-6.10); RED CELL DISTRIBUTION WIDTH 15.2 % (11.5-14.5); WHITE BLOOD COUNT 2.8 10^3/uL (4.0-10.0)
[2018-07-17 05:52] LABS: PLATELET COUNT, AUTOMATED 63 10^3/uL (150-450)
[2018-07-17 06:18] LABS: ANION GAP 6 MEQ/L (8-16); BLOOD UREA NITROGEN 36 MG/DL (7-18); CALCIUM LEVEL 8.4 MG/DL (8.8-10.2); CARBON DIOXIDE LEVEL 28 MEQ/L (21-32); CHLORIDE LEVEL 107 MEQ/L (98-107); GLOMERULAR FILTRATION RATE 36.5 (>49); GLUCOSE, FASTING 261 MG/DL (70-100); POTASSIUM SERUM 4.2 MEQ/L (3.5-5.1); SODIUM LEVEL 141 MEQ/L (136-145)
[2018-07-17] MEDS: PEN NEEDLE (USE WITH HUMULIN U-500 INSULIN PEN) XX ×2 (07:30→12:00)
[2018-07-17] MEDS: PANTOPRAZOLE 20 MG TAB PO (07:48)
[2018-07-17] MEDS: FERROUS SULFATE 325MG TAB PO (07:48)
[2018-07-17] MEDS: ASPIRIN ENTERIC 325 MG TAB PO (07:48)
[2018-07-17] MEDS: DULoxetine 30 MG CAP (CYMBALTA) PO (07:48)
[2018-07-17] MEDS: FEBUXOSTAT 40 MG TABLET (ULORIC) PO (07:48)
[2018-07-17] MEDS: PREGABALIN 75 MG CAP(LYRICA) PO (07:48)
[2018-07-17] MEDS: SPIRONOLACTONE 25 MG TAB PO (07:48)
[2018-07-17] MEDS: predniSONE 5 MG TAB PO (07:49)
[2018-07-17] MEDS: oxyBUTYnin *DITROPAN XL* 5 MG TABCR PO (07:49)
[2018-07-17] MEDS: CARVedilol 3.125 MG TAB PO (07:49)
[2018-07-17] MEDS: CALCIUM CARBONATE 500 MG CHEW U/D PO (07:49)
[2018-07-17] MEDS: TORSEMIDE 10 MG TABLET PO (07:49)
[2018-07-17] MEDS: FINASTERIDE 5 MG TAB PO (07:50)
[2018-07-17] MEDS: CILOSTAZOL 100 MG TAB (PLETAL) PO (07:50)
[2018-07-17] MEDS: MAGNESIUM OXIDE 400 MG TAB (MAG-OX) PO (07:50)
[2018-07-17] MEDS: MULTIVITAMINS/MINERALS THERAP 1 TAB PO (07:50)
[2018-07-17] MEDS: MORPHINE 15 MG SA TAB PO (07:50)
[2018-07-17] MEDS: HumaLOG INSULIN (NovoLOG) PER UNIT SC ×2 (07:51→12:00)
[2018-07-17] MEDS: tiZANidine 4 MG TAB PO (07:51)
[2018-07-17] MEDS: HUMULIN R U-500 KWIKPEN 500UNITS/ML 3ML SYRINGE (J1815 PER 5UNITS) SC ×2 (07:51→12:00)
[2018-07-17] MEDS: HEPARIN SOD (PORCINE) 5000 UNITS/ML VIAL SQ (07:58)
[2018-07-17 11:36] LABS: BEDSIDE GLUCOSE 132 MG/DL (80-115)
== END 2018-07-17 12:30 | disposition home health service (06) | DRG 981 ==
LOC: M MSPAV 07-06 11:23 → M ED 12:51 → M ED INP 18:37
PROC: 0LBV0ZZ Excision of Right Foot Tendon, Open Approach (ICD-10-PCS; principal; 2018-07-12 07:30)
PROC: 0QDL0ZZ Extraction of Right Tarsal, Open Approach (ICD-10-PCS; 2018-07-12 07:30)
PROC: B40FYZZ Plain Radiography of Right Lower Extremity Arteries using Other Contrast (ICD-10-PCS; 2018-07-12 16:12)
PROC: B40GYZZ Plain Radiography of Left Lower Extremity Arteries using Other Contrast (ICD-10-PCS; 2018-07-12 16:12)
PROC: 02HV33Z Insertion of Infusion Device into Superior Vena Cava, Percutaneous Approach (ICD-10-PCS; 2018-07-12 16:12)
DX: E11.621 Type 2 diabetes mellitus with foot ulcer (principal); I50.33 Acute on chronic diastolic (congestive) heart failure; I13.2 Hypertensive heart and chronic kidney disease with heart failure and with stage 5 chronic kidney disease, or end stage renal disease; I69.354 Hemiplegia and hemiparesis following cerebral infarction affecting left non-dominant side; L97.413 Non-pressure chronic ulcer of right heel and midfoot with necrosis of muscle; L03.115 Cellulitis of right lower limb; E87.2 Acidosis; M86.671 Other chronic osteomyelitis, right ankle and foot; E11.22 Type 2 diabetes mellitus with diabetic chronic kidney disease; N18.5 Chronic kidney disease, stage 5; E78.5 Hyperlipidemia, unspecified; J44.9 Chronic obstructive pulmonary disease, unspecified; E11.51 Type 2 diabetes mellitus with diabetic peripheral angiopathy without gangrene; E11.319 Type 2 diabetes mellitus with unspecified diabetic retinopathy without macular edema; N40.1 Benign prostatic hyperplasia with lower urinary tract symptoms; N32.81 Overactive bladder; M62.838 Other muscle spasm; I25.10 Atherosclerotic heart disease of native coronary artery without angina pectoris; N17.9 Acute kidney failure, unspecified; D50.9 Iron deficiency anemia, unspecified; E11.42 Type 2 diabetes mellitus with diabetic polyneuropathy; R33.9 Retention of urine, unspecified; I70.201 Unspecified atherosclerosis of native arteries of extremities, right leg; N25.81 Secondary hyperparathyroidism of renal origin; I25.5 Ischemic cardiomyopathy; H40.9 Unspecified glaucoma; E11.649 Type 2 diabetes mellitus with hypoglycemia without coma; D69.6 Thrombocytopenia, unspecified; B95.61 Methicillin susceptible Staphylococcus aureus infection as the cause of diseases classified elsewhere; D70.9 Neutropenia, unspecified; B96.4 Proteus (mirabilis) (morganii) as the cause of diseases classified elsewhere; B95.2 Enterococcus as the cause of diseases classified elsewhere; Z95.1 Presence of aortocoronary bypass graft; Z79.82 Long term (current) use of aspirin; Z79.52 Long term (current) use of systemic steroids; Z79.899 Other long term (current) drug therapy; Z79.4 Long term (current) use of insulin; Z88.8 Allergy status to other drugs, medicaments and biological substances; Z91.048 Other nonmedicinal substance allergy status; Z79.891 Long term (current) use of opiate analgesic; Z95.810 Presence of automatic (implantable) cardiac defibrillator

== ENCOUNTER → 2018-07-19 | Outpatient (REF) | payer MEDICARE, MEDICAID, OTHER | LOC: M LAB REF 17:37 | PROVIDERS: ATTEND Surgery | DX: L89.614 Pressure ulcer of right heel, stage 4 (principal); E11.621 Type 2 diabetes mellitus with foot ulcer; Z79.4 Long term (current) use of insulin ==

== ENCOUNTER → 2018-07-23 | Outpatient (REF) | payer MEDICARE, MEDICAID, OTHER ==
[2018-07-23 14:58] LABS: BASO % 0.6 % (0.0-1.0); EOS # 0.1 10^3/uL (0.0-0.50); EOS % 2.3 % (0.0-3.0); HEMATOCRIT 34.9 % (42.0-52.0); HEMOGLOBIN 11.2 g/dl (13.5-17.5); LYMPH # 0.8 10^3/uL (1.5-4.5); LYMPH % 21.9 % (24.0-44.0); MEAN CORPUSCULAR HEMOGLOBIN 29.8 pg (27.0-33.0); MEAN CORPUSCULAR HGB CONC 32.1 g/dl (32.0-36.5); MEAN CORPUSCULAR VOLUME 92.8 fl (80.0-96.0); MONO # 0.2 10^3/uL (0.0-0.8); MONO % 6.6 % (0.0-5.0); NEUTROPHILS # 2.4 10^3/uL (1.8-7.7); NEUTROPHILS % 68.6 % (36.0-66.0); RED BLOOD COUNT 3.76 10^6/uL (4.30-6.10); WHITE BLOOD COUNT 3.5 10^3/uL (4.0-10.0)
[2018-07-23 15:00] LABS: PLATELET COUNT, AUTOMATED 67 10^3/uL (150-450)
[2018-07-23 15:17] LABS: ALBUMIN 3.2 GM/DL (3.2-5.2); BILIRUBIN,TOTAL 0.5 MG/DL (0.2-1.0); C REACTIVE PROTEIN QUANTITATIV 0.36 MG/DL (0.00-0.30); CALCIUM LEVEL 8.2 MG/DL (8.8-10.2); CREATININE FOR GFR 2.11 MG/DL (0.70-1.30); GLOMERULAR FILTRATION RATE 34.3 (>49); POTASSIUM SERUM 4.2 MEQ/L (3.5-5.1); TOTAL PROTEIN 6.1 GM/DL (6.4-8.2)
[2018-07-23 15:24] LABS: ERYTHROCYTE SEDIMENTATION RATE 30 mm/hr (0-20)
== END ==
LOC: M SHH 14:24
PROVIDERS: ATTEND Internal Medicine Infectious Disease
DX: M86.60 Other chronic osteomyelitis, unspecified site (principal)

== ENCOUNTER → 2018-07-30 | Outpatient (REF) | payer MEDICARE, MEDICAID, OTHER ==
[2018-07-30 14:02] LABS: EOS # 0.1 10^3/uL (0.0-0.50); EOS % 4.4 % (0.0-3.0); HEMATOCRIT 36.4 % (42.0-52.0); HEMOGLOBIN 11.9 g/dl (13.5-17.5); LYMPH # 0.8 10^3/uL (1.5-4.5); LYMPH % 28.7 % (24.0-44.0); MEAN CORPUSCULAR HEMOGLOBIN 30.1 pg (27.0-33.0); MEAN CORPUSCULAR HGB CONC 32.7 g/dl (32.0-36.5); MEAN CORPUSCULAR VOLUME 91.9 fl (80.0-96.0); MONO # 0.2 10^3/uL (0.0-0.8); MONO % 7.2 % (0.0-5.0); NEUTROPHILS # 1.7 10^3/uL (1.8-7.7); NEUTROPHILS % 58.4 % (36.0-66.0); RED BLOOD COUNT 3.96 10^6/uL (4.30-6.10); WHITE BLOOD COUNT 2.9 10^3/uL (4.0-10.0)
[2018-07-30 14:04] LABS: PLATELET COUNT, AUTOMATED 58 10^3/uL (150-450)
[2018-07-30 14:30] LABS: ALBUMIN 3.4 GM/DL (3.2-5.2); BILIRUBIN,TOTAL 0.8 MG/DL (0.2-1.0); C REACTIVE PROTEIN QUANTITATIV 0.8 MG/DL (0.00-0.30); CALCIUM LEVEL 8.6 MG/DL (8.8-10.2); CREATININE FOR GFR 2.27 MG/DL (0.70-1.30); GLOMERULAR FILTRATION RATE 31.5 (>49); POTASSIUM SERUM 3.9 MEQ/L (3.5-5.1); TOTAL PROTEIN 6.7 GM/DL (6.4-8.2)
[2018-07-30 14:35] LABS: ERYTHROCYTE SEDIMENTATION RATE 24 mm/hr (0-20)
== END ==
LOC: M SHH 13:15
PROVIDERS: ATTEND Internal Medicine Infectious Disease
DX: M86.9 Osteomyelitis, unspecified (principal)

== ENCOUNTER → 2018-08-16 | Outpatient (REF) | payer MEDICARE, MEDICAID, OTHER | LOC: SKLABADC 08:35 | PROVIDERS: ATTEND Physician Assistant | DX: E11.65 Type 2 diabetes mellitus with hyperglycemia (principal) ==

== ENCOUNTER → 2018-08-21 | Outpatient (REF) | payer MEDICARE, MEDICAID, OTHER ==
[2018-08-21 11:13] LABS: BASO % 0.8 % (0.0-1.0); EOS # 0.2 10^3/uL (0.0-0.50); EOS % 4.3 % (0.0-3.0); HEMATOCRIT 40.5 % (42.0-52.0); HEMOGLOBIN 12.5 g/dl (13.5-17.5); LYMPH # 1.1 10^3/uL (1.5-4.5); LYMPH % 30.3 % (24.0-44.0); MEAN CORPUSCULAR HEMOGLOBIN 29.5 pg (27.0-33.0); MEAN CORPUSCULAR HGB CONC 30.9 g/dl (32.0-36.5); MEAN CORPUSCULAR VOLUME 95.5 fl (80.0-96.0); MONO # 0.4 10^3/uL (0.0-0.8); MONO % 9.6 % (0.0-5.0); NEUTROPHILS # 2.1 10^3/uL (1.8-7.7); NEUTROPHILS % 54.5 % (36.0-66.0); RED BLOOD COUNT 4.24 10^6/uL (4.30-6.10); WHITE BLOOD COUNT 3.8 10^3/uL (4.0-10.0)
[2018-08-21 11:17] LABS: PLATELET COUNT, AUTOMATED 77 10^3/uL (150-450)
[2018-08-21 11:28] LABS: C REACTIVE PROTEIN QUANTITATIV 1.15 MG/DL (0.00-0.30); CALCIUM LEVEL 8.7 MG/DL (8.8-10.2); CREATININE FOR GFR 2.65 MG/DL (0.70-1.30); GLOMERULAR FILTRATION RATE 26.4 (>49); POTASSIUM SERUM 4.5 MEQ/L (3.5-5.1)
[2018-08-21 11:52] LABS: ERYTHROCYTE SEDIMENTATION RATE 36 mm/hr (0-20)
== END ==
LOC: SKLABADC 08:43
PROVIDERS: ATTEND Internal Medicine Infectious Disease
DX: E11.65 Type 2 diabetes mellitus with hyperglycemia (principal); B96.4 Proteus (mirabilis) (morganii) as the cause of diseases classified elsewhere

== ENCOUNTER → 2018-08-21 | Outpatient (REF) | payer MEDICARE, MEDICAID, OTHER | LOC: SKLABADC 08:12 | PROVIDERS: ATTEND Physician Assistant | DX: E11.65 Type 2 diabetes mellitus with hyperglycemia (principal) ==

== ENCOUNTER → 2018-08-30 | Outpatient (CLI) | payer MEDICARE, MEDICAID, OTHER ==
--- NOTE | 2018-09-14 02:00 | ECWPNPC ---
PATIENT NAME: WILLIS GRAHAM : 1960 GENDER: MALE VISIT DATE: 08/30/2018 DISCHARGE DATE: 08/30/18 1423 VISIT LOCKED DATE TIME: PHYSICIAN: LAUREN SAN RESOURCE: LAUREN SAN REASON FOR APPOINTMENT 1. 3 MONTHS HISTORY OF PRESENT ILLNESS HISTORY OF PRESENT ILLNESS: HERE FOR F/U OF CHRONIC GENERALIZED JOINT PAIN.HAVING SEVERE RIGHT ULCER PAIN RIGHT FOOT THAT RECENTLY HAD OSTEOMYRLITIS IN JULY AND PAIN HAS ESCALATED.RATING PAIN VAS 6-10/10.CURRENT MEDICATION IS ONLY MARGINALLY EFFECITVE.RATING PAIN VAS 7/10. PAIN THE PATIENT DESCRIBES THE PAIN... FALL RISK SCREENING: SCREENING :NO FALLS IN THE PAST YEAR CURRENT MEDICATIONS TAKING ULORIC 40 MG TABLET 3 TABS ORALLY ONCE A DAY TAKING TORSEMIDE 100 MG TABLET 1/2 TABLETS ORALLY TWICE A DAY TAKING MULTIVITAMINS OTC TABLET 1 TABLET ORALLY ONCE A DAY TAKING MAGNESIUM OXIDE 400 MG TABLET 1 TAB(S) ORALLY ONCE A DAY TAKING FERROUS SULFATE 325 (65 FE) MG TABLET DELAYED RELEASE 1 TABLET ORALLY BID TAKING WHEELCHAIR 1 MISCELLANEOUS DIRECTED FOR PARTS - NEEDS LEG MOTION PICTURE DIRECTOR ATTACHMENTS TO POWER CHAIR HEIGHT 5'10'' WEIGHT 329 LBS, DX:Z74.09 TAKING ASPIRIN EC 325 MG TABLET DELAYED RELEASE 1 TABLET ORALLY ONCE A DAY TAKING COREG 3.125 MG TABLET 1 TABLET WITH FOOD ORALLY TWICE A DAY TAKING SHOWER CHAIR WITHOUT WHEELS DIRECTED, NEEDS LARGE SHOWER CHAIR, BMI 47, WEIGHT 332 LBS, HEIGHT 70 INCHES DIRECTED DAILY USE (DX R26.89) TAKING LITO CONTOUR TEST 1 STRIP 1 TEST STRIP EXTERNALLY QID TESTING TAKING CALCITRIOL 0.25 MCG CAPSULE 2 CAPSULE ORALLY ONCE A DAY TAKING NITROSTAT 0.4 MG TABLET SUBLINGUAL 1 TABLET UNDER THE TONGUE AND ALLOW TO DISSOLVE NEEDED SUBLINGUAL AT ONSET OF CHEST AND IN5 MIN IN NOT RESOLVED TAKING PEN NEEDLES 31G X 6 MM MISCELLANEOUS DIRECTED SUBCUTANEOUSLY DAILY WITH VICTOZA. DX: Z79.4 TAKING OXYBUTYNIN CHLORIDE ER 15 MG TABLET EXTENDED RELEASE 24 HOUR 1 TAB(S) ORALLY DAILY TAKING SENSIPAR 30 MG TABLET 1 TABLET AFTER A MEAL WITH FOOD ORALLY MWF TAKING SPIRONOLACTONE 25 MG TABLET 1 TAB ORALLY TWICE A DAY TAKING FINASTERIDE 5 MG TABLET 1 TABLET ORALLY ONCE A DAY TAKING ATORVASTATIN CALCIUM 80 MG TABLET 1 TABLET ORALLY ONCE A DAY TAKING DEXILANT DR 60MG CAPSULE 1 CAP(S) ORALLY ONCE A DAY TAKING FLOMAX 0.4 MG CAPSULE 2 CAPSULE ORALLY BEFORE BEDTIME TAKING MAY HAVE - - BATTERY FOR WHEELCHAIR AND WHEELCHAIR REPAIR FOR CURRENT MOTORIZED CHAIR UPKEEP ONCE. DX: WHEELCHAIR BOUND, MULTIPLE SCLEROSIS TAKING ACETAMINOPHEN EXTRA STRENGTH 500 MG TABLET 1 TABLET NEEDED ORALLY EVERY 6 HRS TAKING MIDODRINE HCL 2.5 MG TABLET 1 TABLET ORALLY THREE TIMES A DAY TAKING MAY HAVE - - PLEASE DISPENSE ROHO CUSHION FOR WHEELCHAIR FOR USE WHEN SEATED DAILY TAKING CILOSTAZOL 100MG TABLET 1 TABLET 30 MINUTES BEFORE OR 2 HOURS AFTER BREAKFAST AND DINNER ORALLY TWICE A DAY TAKING DULERA 200-5 MCG/ACT AEROSOL 2 PUFFS INHALATION TWICE A DAY TAKING ALBUTEROL SULFATE HFA 108 (90 BASE) MCG/ACT AEROSOL SOLUTION 2 PUFFS INHALATION EVERY 4 HRS NEEDED DX:496 TAKING DULOXETINE HCL 30 MG CAPSULE DELAYED RELEASE PARTICLES 1 CAPSULE ORALLY ONCE A DAY TAKING PREDNISONE 5 MG TABLET 1 TABLET ORALLY ONCE A DAY TAKING LYRICA 150 MG CAPSULE 1 CAPSULE ORALLY TWICE A DAY (MDD # 2) TAKING MS CONTIN 15 MG TABLET EXTENDED RELEASE 1 TABLET ORALLY EVERY 12 HRS MDD2 TAKING HYDROCODONE-ACETAMINOPHEN 10-325 MG TABLET 1 TABLET NEEDED ORALLY EVERY 6 HRS PRN. MDD:4 TAKING TIZANIDINE HCL 4 MG TABLET 1 TABLET NEEDED ORALLY THREE TIMES A DAY TAKING AUGMENTIN 500-125 MG TABLET DIRECTED ORALLY EVERY 12 HRS TAKING GLUCAGON EMERGENCY 1 MG KIT DIRECTED INJECTION USE FOR BLOOD SUGAR BELOW 40 AND CALL MD. DX: Z79.4 TAKING PEN NEEDLES 31G X 8 MM MISCELLANEOUS DIRECTED SUBCUTANEOUSLY ACHS. DX: Z79.4 TAKING VICTOZA 18 MG/3ML SOLUTION PEN-INJECTOR 1.8 MG SUBCUTANEOUS DAILY TAKING HUMULIN R U-500 (CONCENTRATED) 500 UNIT/ML SOLUTION 80 IN AM 70 AT NOON, 80 PM, 30 AT HS SUBCUTANEOUS TAKING ZOFRAN ODT 4 MG TABLET DISINTEGRATING 1 TABLET ON THE TONGUE AND ALLOW TO DISSOLVE NEEDED ORALLY TWICE DAILY NEEDED NOT-TAKING HUMALOG KWIKPEN 200 UNIT/ML SOLUTION PEN-INJECTOR DIRECTED SUBCUTANEOUS ACHS. DX: Z79.4. MDD 60 UNITS, NOTES: 60-124: NONE, 125-150: 2 UNITS, 151-200: 4 UNITS, 201-250: 6 UNITS, 251-300: 8 UNITS, 301-350: 10 UNITS, 400 AND ABOVE 12 UNITS AND CALL MD NOT-TAKING DOCUSATE SODIUM 100 MG CAPSULE 1 CAPSULE NEEDED ORALLY ONCE A DAY NOT-TAKING CIPRO 500 MG TABLET 1 TABLET ORALLY DIRECTED- 1 HOUR PRIOR TO CYSTO NOT-TAKING MUPIROCIN 2 % OINTMENT 1 APPLICATION TO LEFT KNEE WOUND EXTERNALLY THREE TIMES A DAY NOT-TAKING POTASSIUM CHLORIDE ER 10MEQ TABLET EXTENDED RELEASE 1 TABLET WITH FOOD ORALLY DAILY NOT-TAKING AUGMENTIN 875-125 MG TABLET 1 TABLET ORALLY EVERY 12 HRS NOT-TAKING DOXYCYCLINE HYCLATE 100 MG TABLET 1 TABLET ORALLY TWICE A DAY MEDICATION LIST REVIEWED AND RECONCILED WITH THE PATIENT PAST MEDICAL HISTORY 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 ANDRADE - [facility] CAD - TRIPLE VESSEL - EF 30-35% NUCLEAR STRESS TEST - [facility] - 10/04/2010 - INFARCTION NOTED IN LATERAL AND INFEROLATERAL BELTRAN, MINIMAL PERIINFACT ISCHEMIA. PHARMACOLOGICAL SPECT - 11/21/2012 - EXTENSIVE INFERIOR AND INFEROLATERAL INFARCT, MINIMAL ISCHEMIA - LVEF 30%. CABG 2008 - [facility] - , TRAM TO LAD, SVG TO PDA, SEQ. SVG TO OM1 AND OM2 ISCHEMIC CARDIOMYOPTHY SEIZURE/PSEUDOSEIZURE - FOLLOWED BY NEUROLOGY RETINAL OCCLUSION, LEFT EYE - [facility] ALLERGIES KETOROLAC TROMETHAMINE: HALLUCINATIONS: ALLERGY BUTRAN TRANSDERMAL PATCH: RASH: ALLERGY ADHESIVE BANDAGES: CONTACT DERMATITIS: ALLERGY SURGICAL HISTORY QUAD BYPASS 2009 HYDROCELE REPAIR X2 2010 [facility] PACEMAKER NECK SURGERY HERNIA REPAIR X4 COLONOSCOPY 06/2016 LEFT FOREARM FISTULA 07/2017 LEFT ANTICUBITAL FISTULA 2018 CYSTOSCOPY 07/25/2018 FAMILY HISTORY FATHER: 78 YRS, CVA, [place], DIAGNOSED WITH HEART DISEASE, STROKE MOTHER: 52 YRS, CVA, DIAGNOSED WITH STROKE SIBLINGS: 1 SISTER LIVER DISEASE, ANOTHER CELIAC DISEASE 2 HALF BROTHERS WITH DM 4 BROTHER(S) , 2 SISTER(S) . 1 SON(S) , 2 DAUGHTER(S) - HEALTHY. NO FAMIILY HISTORY OF BLADDER, PROSTATE, KIDNEY CANCER. SOCIAL HISTORY GENERAL: TOBACCO USE ARE YOU A:FORMER SMOKER HOW LONG HAS IT BEEN SINCE YOU LAST SMOKED?1-5 YEARS BMI CARE GOAL FOLLOW-UP ABOVE NORMAL BMI FOLLOW-UPDIETARY MANAGEMENT EDUCATION, GUIDANCE, AND COUNSELING ALCOHOL SCREENING POINTS: 0, INTERPRETATION: NEGATIVE. RECREATIONAL DRUG USE DENIES. CAFFEINE 2-5/DAY. SEXUAL HX HAD SEX IN THE LAST 12 MONTHS (VAGINAL, ORAL, OR ANAL)?: NO, HAVE YOU EVER HAD AN STD?: NO. HIV / HEP-C SCREENING HIV TEST OFFERED TO PATIENT:YES DATE OFFERED:04/17/2017 TEST ACCEPTED:NO REASON:PATIENT DECLINED LATTER-DAY NO ISLAM BELIEFS THAT WOULD IMPACT HEALTH CARE. LANGUAGE [place]ER. EDUCATION LEVEL OF EDUCATION:NOT FINISHED COLLEGE LEARNING BARRIERS / SPECIAL NEEDS CHANGE FROM LAST VISIT?NO BARRIERS TO LEARNING?NO HEARING IMPAIRED?NO VISION IMPAIRED?NO COGNITIVELY IMPAIRED?NO READINESS TO LEARN?YES LEARNING PREFERENCES?NO LEARNING CAPABILITIES PRESENT?YES EMOTIONAL BARRIERS?NO SPECIAL DEVICES?YES :WHEELCHAIR HEALTH CARE ANALYST NEEDED?NO DOMESTIC VIOLENCE NONE. OCCUPATION: DISABLED. DIET: LOW FAT, LOW CHOLESTEROL, CARBOHYDRATE CONTROLLED. EXERCISE: NO REGULAR EXERCISE. MARITAL STATUS: . OTHERS AT HOME: SPOUSE. PAIN CLINIC PFS, CLERGY, PUBLIC HEALTH REFERRALS HAS THE PATIENT BEEN EDUCATED REGARDING HIS/HER PLAN OF CARE?YES HAS THE PATIENT BEEN EDUCATED REGARDING PAIN, THE RISK FOR PAIN, THE IMPORTANCE OF EFFECTIVE PAIN MANAGEMENT, AND THE PAIN ASSESSMENT PROCESS?YES HOUSING: OWNS HOME. ADVANCE DIRECTIVE ADVANCE DIRECTIVE DISCUSSED WITH PATIENT:YES HCP - KAYCE GRAHAM () REVIEWED WITH PATIENT 08/30/18 1340 JS. HOSPITALIZATION/MAJOR DIAGNOSTIC PROCEDURE SURGERY RELATED CHRONIC RENAL FAILURE MYOCARDIAL INFARCTION CELLULITIS [facility] - STROKE LEFT SIDE 10/2015 [facility]- TIA 11/2015 INFECTION 02/2016 [facility] - SEPSIS 03/08/2016 ADMITTED WITH LOW BLOOD SUGAR 12/2017 UTI AND LOW BLOOD SUGAR 05/2018 [facility] WOUND INFECTION 07/05/18 RIGHT FOOT WOUND 07/2018 REVIEW OF SYSTEMS REVIEWED BY: PROVIDER: LAUREN BENEDICT . CONSTITUTIONAL: ANY CHANGE IN YOUR MEDICAL CONDITION? NO . CHILLS NO . FEVER NO . INFECTION: DO YOU HAVE NEW INFECTIONS? YES, RIGHT FOOT INFECTION, WOUND DEBRIDED IN DR. RUVALCABA'S OFFICE TODAY . DO YOU HAVE HISTORY OF MRSA? NO . MUSCULOSKELETAL: ANY NEW PATTERNS OF PAIN OR NUMBNESS? NO . GASTROENTEROLOGY: ANY NEW CHANGE IN BOWEL CONTROL? NO . GENITOURINARY: ANY NEW CHANGE IN BLADDER CONTROL? YES, STATES SALVADOR CATHETER IN NOW FOR 5 WEEKS, WAS USING A STRIAGHT CATH PREVIOUSLY . IS THERE A CHANCE YOU COULD BE ? NO . HEMATOLOGY/LYMPH: DO YOU TAKE ANY BLOOD THINNERS? (FOR EXAMPLE- COUMADIN, PLAVIX, AGGRENOX, PLATEL, PRADAXA, OR XARELTO) NO . WHEN WAS YOUR LAST DOSE? DATE: TIME: . NEUROLOGY: HAVE YOU FALLEN IN THE PAST 12 MONTHS? YES, STATES FALL PRIOR TO LAST VISIT, DISCUSSED AT LAST VISIT . ANY NEW EXTREMITY NUMBNESS OR WEAKNESS? YES, NEW NUMBNESS TO FINGERS ON BILATERAL HANDS . CARDIOLOGY: DO YOU HAVE A PACEMAKER OR DEFIBRILLATOR? YES, DEFIBRILLATOR . RESPIRATORY: HAVE YOU BEEN SICK IN THE PAST WEEK? NO . FEVER NO . FLU LIKE SYMPTOMS? NO . COUGH NO . INTEGUMENTARY: DO YOU HAVE ANY RASHES OR OPEN SORES? YES, RIGHT FOOT WOUND AND CUT TO LEFT HAND . ALLERGIC/IMMUNO: ARE YOU ALLERGIC TO IV DYE? NO . ANY NEW ALLERGIES? NO . PSYCHIATRIC: DO YOU HAVE THOUGHTS OF HURTING YOURSELF OR SOMEONE ELSE? NO . ARE YOU ABUSED, NEGLECTED, OR IN AN UNSAFE ENVIRONMENT? NO . ENDOCRINOLOGY: ARE YOU DIABETIC? YES, STATES FSBS 88 AT 1100 TODAY . OTHER: DO YOU NEED ANY PRESCRIPTIONS? YES . IF YES, PLEASE LIST: ____MS CONTIN, HYDROCODONE . ANY NEW PROBLEMS WITH YOUR MEDICATIONS? NO . WHEN DID YOU LAST EAT? ____ . WHEN DID YOU LAST DRINK? ____ . WHAT DID YOU LAST DRINK? ____ . NAME OF PERSON DRIVING YOU HOME? ____ . DO YOU HAVE ANY OTHER QUESTIONS OR CONCERNS NO . VITAL SIGNS WT 300 LBS, HT 70 IN, BMI 43.04 INDEX, BP 70/50 MM HG, REPEAT BP 76/60 MM HG, HR 80 /MIN, RR 18 /MIN, TEMP 97.3 F, OXYGEN SAT % 93%, SAFE IN ENV? (Y/N) YES, NA INITIALS AW 1329, REVIEWED BY: TONY NURSE KNOW ABOUT BP1/ 1340 NOTIFIED JAK WHITTEN OF PATIENT'S LOW BP. EXAMINATION GENERAL EXAMINATION: GENERAL APPEARANCE:AWAKE,ALERT ,PLEAASANT . PSYCHAFFECT NORMAL . LUNGS:LUNG RUIZ ARE CLEAR TO AUSCULTATION BILATERALLY. GOOD MOVEMENT OF AIR . HEART:S1, S2 IN A REGULAR RATE AND RHYTHM. NO SIGNIFICANT MURMURS, RUBS OR GALLOPS NOTED . ASSESSMENTS NEUROPATHY - G62.9 (PRIMARY) CHRONIC PRESCRIPTION OPIATE USE - Z79.891 TREATMENT NEUROPATHY REFILL LYRICA CAPSULE, 150 MG, 1 CAPSULE, ORALLY, Q12H MDD2, 30 DAY(S), 60, REFILLS 1 REFILL HYDROCODONE-ACETAMINOPHEN TABLET, 10-325 MG, 1 TABLET NEEDED, ORALLY, EVERY 6 HRS PRN. MDD:4, 30 DAY(S), 120, REFILLS 0 INCREASE MS CONTIN TABLET EXTENDED RELEASE, 15 MG, 1 TABLET, ORALLY, Q8H MDD3, 30 DAY(S), 90, REFILLS 0 NOTES: PATIENT IS ADVISED TO MONITOR BP AND NOT TAKE A 3RD MS CONTIN 15MG IF BP ISNT OVER 100 SYSOLIC AND 70 DIASTOLIC, ISTOP REGISTRY REVIEWED AND DEMONSTRATES COMPLLIANCE. BRINGS IN MEDICATIONS WHICH IS APPROPRIATE FOR WHAT WAS DISPENSED. RECENT URINE TOXICOLOGY REVIEWED. NO UNAUTHORIZED MEDICATIONS. NO ILLICIT SUBSTANCES AND PRESCRIBED MEDICATIONS WERE PRESENT. , RISKS AND BENEFITS OF NARCOTIC/OPIOD MEDICATIONS WERE REVIEWED WITH PATIENT - THIS INCLUDES BUT IS NOT LIMITED TO RISK OF DEPENDANCE/DEVELOPMENT OF ADDICTION, MOOD DISTURBANCE AND DEPRESSION, OSTEOPOROSIS, HORMONAL AND LABIDAL CHANGES, RESPIRATORY DEPRESSION AND . PATIENT IS ADVISED NOT TO DRIVE OR DRINK ALCOHOL WHILE ON THESE MEDICATIONS. PROCEDURE CODES [id number] ESTABILISHED PATIENT [facility] CHARGE DISPOSITION & COMMUNICATION FOLLOW UP 2 MONTHS ELECTRONICALLY SIGNED BY JAK DAVIS ON 09/13/2018 AT 01:29 PM EST DISCLAIMER : THIS IS A VISIT SUMMARY EXTRACTED FROM THE [employer] CHART. IT IS NOT A COPY OF THE [employer] PROGRESS NOTE. [facility]
== END ==
LOC: M PAIN 13:00
PROVIDERS: ATTEND Nurse Practitioner Family
DX: G62.9 Polyneuropathy, unspecified (principal); G89.29 Other chronic pain; E11.22 Type 2 diabetes mellitus with diabetic chronic kidney disease; N18.4 Chronic kidney disease, stage 4 (severe); I11.0 Hypertensive heart disease with heart failure; I25.2 Old myocardial infarction; I50.9 Heart failure, unspecified; R56.9 Unspecified convulsions; L89.614 Pressure ulcer of right heel, stage 4; L89.899 Pressure ulcer of other site, unspecified stage; Z88.5 Allergy status to narcotic agent; Z88.8 Allergy status to other drugs, medicaments and biological substances; Z91.09 Other allergy status, other than to drugs and biological substances; E66.01 Morbid (severe) obesity due to excess calories; Z68.41 Body mass index [BMI] 40.0-44.9, adult; Z79.82 Long term (current) use of aspirin; Z79.52 Long term (current) use of systemic steroids; Z79.891 Long term (current) use of opiate analgesic; Z79.4 Long term (current) use of insulin; Z79.899 Other long term (current) drug therapy; Z86.79 Personal history of other diseases of the circulatory system; Z86.39 Personal history of other endocrine, nutritional and metabolic disease; Z87.39 Personal history of other diseases of the musculoskeletal system and connective tissue; Z87.891 Personal history of nicotine dependence; Z86.73 Personal history of transient ischemic attack (TIA), and cerebral infarction without residual deficits; Z95.810 Presence of automatic (implantable) cardiac defibrillator
CPT/HCPCS: 11042; 97597; G0463

== ENCOUNTER → 2018-10-08 | Outpatient (REF) | payer MEDICARE, MEDICAID, OTHER ==
[2018-10-08 15:49] LABS: CALCIUM LEVEL 8.8 MG/DL (8.8-10.2); CREATININE FOR GFR 2.42 MG/DL (0.70-1.30); GLOMERULAR FILTRATION RATE 29.3 (>49); POTASSIUM SERUM 4.8 MEQ/L (3.5-5.1)
[2018-10-08 15:50] LABS: APPEARANCE, URINE CLEAR (CLEAR); BACTERIA, URINE AUTO 1+ (NEGATIVE); BILIRUBIN, URINE AUTO NEGATIVE (NEGATIVE); BLOOD, URINE BLOOD NEGATIVE (NEGATIVE); COLOR, URINE YELLOW (YELLOW); GLUCOSE, URINE (UA) AUTO NEGATIVE (NEGATIVE); KETONE, URINE AUTO NEGATIVE (NEGATIVE); LEUKOCYTE ESTERASE, URINE AUTO 1+ (NEGATIVE); NITRITE, URINE AUTO NEGATIVE (NEGATIVE); PROTEIN, URINE AUTO NEGATIVE (NEGATIVE); RBC, URINE AUTO 1 /HPF (0-3); SQUAMOUS EPITHELIAL CELL UR AU 0 /HPF (0-6); UROBILINOGEN, URINE AUTO 0.2 mg/dL (0.0-2.0); WBC, URINE AUTO 7 /HPF (0-3)
[2018-10-08 16:21] LABS: CREATININE, URINE 59.7 MG/DL; MALB URINE SIEMENS 26.9 MG/L
== END ==
LOC: M SFHCPLAZ 12:38
PROVIDERS: ATTEND Family Medicine
DX: R60.0 Localized edema (principal); R33.9 Retention of urine, unspecified; R06.02 Shortness of breath; M62.542 Muscle wasting and atrophy, not elsewhere classified, left hand; M62.541 Muscle wasting and atrophy, not elsewhere classified, right hand
CPT/HCPCS: 36415; 51701; 80048; 81001; 82043; 84153; 87088; 87186; G0463

== ENCOUNTER → 2018-10-12 | Outpatient (CLI) | payer MEDICARE, MEDICAID, OTHER ==
--- NOTE | 2018-10-13 02:11 | ECWPNPC ---
PATIENT NAME: WILLIS GRAHAM : 1960 GENDER: MALE VISIT DATE: 10/12/2018 DISCHARGE DATE: 10/12/18 1244 VISIT LOCKED DATE TIME: PHYSICIAN: LAUREN SAN RESOURCE: LAUREN SAN REASON FOR APPOINTMENT 1. 6 WEEKS HISTORY OF PRESENT ILLNESS HISTORY OF PRESENT ILLNESS: HERE FOR F/U OF CHRONIC GENERALIZED JOINT PAIN AND BACK PAIN.RATING PAIN VAS 8/10.FINDING INCREASE IN MEDICATION DONE AT LAST VISIT IS MORE EFFECTIVE.DENIES SIDE EFFECTS. PAIN THE PATIENT DESCRIBES THE PAIN... FALL RISK SCREENING: SCREENING : NO FALLS IN THE PAST YEAR. CURRENT MEDICATIONS TAKING ULORIC 40 MG TABLET 3 TABS ORALLY ONCE A DAY TAKING TORSEMIDE 100 MG TABLET 1 TABLETS ORALLY TWICE A DAY TAKING MULTIVITAMINS OTC TABLET 1 TABLET ORALLY ONCE A DAY TAKING MAGNESIUM OXIDE 400 MG TABLET 1 TAB(S) ORALLY ONCE A DAY TAKING FERROUS SULFATE 325 (65 FE) MG TABLET DELAYED RELEASE 1 TABLET ORALLY BID TAKING WHEELCHAIR 1 MISCELLANEOUS DIRECTED FOR PARTS - NEEDS LEG BANANA HANDLER ATTACHMENTS TO POWER CHAIR HEIGHT 5'10'' WEIGHT 329 LBS, DX:Z74.09 TAKING ASPIRIN EC 325 MG TABLET DELAYED RELEASE 1 TABLET ORALLY ONCE A DAY TAKING COREG 3.125 MG TABLET 1 TABLET WITH FOOD ORALLY TWICE A DAY TAKING SHOWER CHAIR WITHOUT WHEELS DIRECTED, NEEDS LARGE SHOWER CHAIR, BMI 47, WEIGHT 332 LBS, HEIGHT 70 INCHES DIRECTED DAILY USE (DX R26.89) TAKING LITO CONTOUR TEST 1 STRIP 1 TEST STRIP EXTERNALLY QID TESTING TAKING CALCITRIOL 0.25 MCG CAPSULE 2 CAPSULE ORALLY ONCE A DAY TAKING NITROSTAT 0.4 MG TABLET SUBLINGUAL 1 TABLET UNDER THE TONGUE AND ALLOW TO DISSOLVE NEEDED SUBLINGUAL AT ONSET OF CHEST AND IN5 MIN IN NOT RESOLVED TAKING PEN NEEDLES 31G X 6 MM MISCELLANEOUS DIRECTED SUBCUTANEOUSLY DAILY WITH VICTOZA. DX: Z79.4 TAKING SPIRONOLACTONE 25 MG TABLET 1 TAB ORALLY TWICE A DAY TAKING FINASTERIDE 5 MG TABLET 1 TABLET ORALLY ONCE A DAY TAKING ATORVASTATIN CALCIUM 80 MG TABLET 1 TABLET ORALLY ONCE A DAY TAKING DEXILANT DR 60MG CAPSULE 1 CAP(S) ORALLY ONCE A DAY TAKING FLOMAX 0.4 MG CAPSULE 2 CAPSULE ORALLY BEFORE BEDTIME TAKING MAY HAVE - - BATTERY FOR WHEELCHAIR AND WHEELCHAIR REPAIR FOR CURRENT MOTORIZED CHAIR UPKEEP ONCE. DX: WHEELCHAIR BOUND, MULTIPLE SCLEROSIS TAKING ACETAMINOPHEN EXTRA STRENGTH 500 MG TABLET 1 TABLET NEEDED ORALLY EVERY 6 HRS TAKING MIDODRINE HCL 2.5 MG TABLET 1 TABLET ORALLY THREE TIMES A DAY TAKING MAY HAVE - - PLEASE DISPENSE ROHO CUSHION FOR WHEELCHAIR FOR USE WHEN SEATED DAILY TAKING CILOSTAZOL 100MG TABLET 1 TABLET 30 MINUTES BEFORE OR 2 HOURS AFTER BREAKFAST AND DINNER ORALLY TWICE A DAY TAKING DULERA 200-5 MCG/ACT AEROSOL 2 PUFFS INHALATION TWICE A DAY TAKING ALBUTEROL SULFATE HFA 108 (90 BASE) MCG/ACT AEROSOL SOLUTION 2 PUFFS INHALATION EVERY 4 HRS NEEDED DX:496 TAKING DULOXETINE HCL 30 MG CAPSULE DELAYED RELEASE PARTICLES 1 CAPSULE ORALLY ONCE A DAY TAKING PREDNISONE 5 MG TABLET 1 TABLET ORALLY ONCE A DAY TAKING TIZANIDINE HCL 4 MG TABLET 1 TABLET NEEDED ORALLY THREE TIMES A DAY TAKING GLUCAGON EMERGENCY 1 MG KIT DIRECTED INJECTION USE FOR BLOOD SUGAR BELOW 40 AND CALL MD. DX: Z79.4 TAKING PEN NEEDLES 31G X 8 MM MISCELLANEOUS DIRECTED SUBCUTANEOUSLY ACHS. DX: Z79.4 TAKING VICTOZA 18 MG/3ML SOLUTION PEN-INJECTOR 1.8 MG SUBCUTANEOUS DAILY TAKING HUMULIN R U-500 (CONCENTRATED) 500 UNIT/ML SOLUTION 70 IN AM 30 AT NOON, 80 PM, 30 AT HS SUBCUTANEOUS TAKING ZOFRAN ODT 4 MG TABLET DISINTEGRATING 1 TABLET ON THE TONGUE AND ALLOW TO DISSOLVE NEEDED ORALLY TWICE DAILY NEEDED TAKING LYRICA 150 MG CAPSULE 1 CAPSULE ORALLY Q12H MDD2 TAKING SENSIPAR 30MG TABLET 1 TABLET AFTER A MEAL WITH FOOD ORALLY MWF TAKING GABAPENTIN 100 MG CAPSULE 1 CAPSULE ORALLY THREE TIMES A DAY FOR CHRONIC SKIN ITCHING TAKING TRIAMCINOLONE ACETONIDE 0.1 % CREAM 1 APPLICATION EXTERNALLY TWICE A DAY TO RASH ON BACK, NOTES: APPLY FOR TWO WEEKS. IF RASH RE-OCCURS, REPEAT PROCESS. IF NEEDING CONTINUOUSLY, PLEASE FOLLOWUP TAKING HYDROCODONE-ACETAMINOPHEN 10-325 MG TABLET 1 TABLET NEEDED ORALLY EVERY 6 HRS PRN. MDD:4 TAKING MS CONTIN 15 MG TABLET EXTENDED RELEASE 1 TABLET ORALLY Q8H MDD3 TAKING MAY HAVE - - PLEASE DISPENSE NAYAN WRISE BRACE WITHOUT THUMB SPICA WEAR ON EACH WRIST NIGHTLY FOR CARPAL TUNNEL SYNDROME OF BOTH HANDS TAKING OXYBUTYNIN CHLORIDE ER 15MG TABLET EXTENDED RELEASE 24 HOUR 1 TAB(S) ORALLY DAILY NOT-TAKING HUMALOG KWIKPEN 200 UNIT/ML SOLUTION PEN-INJECTOR DIRECTED SUBCUTANEOUS ACHS. DX: Z79.4. MDD 60 UNITS, NOTES: 60-124: NONE, 125-150: 2 UNITS, 151-200: 4 UNITS, 201-250: 6 UNITS, 251-300: 8 UNITS, 301-350: 10 UNITS, 400 AND ABOVE 12 UNITS AND CALL MD NOT-TAKING DOCUSATE SODIUM 100 MG CAPSULE 1 CAPSULE NEEDED ORALLY ONCE A DAY NOT-TAKING CIPRO 500 MG TABLET 1 TABLET ORALLY DIRECTED- 1 HOUR PRIOR TO CYSTO NOT-TAKING MUPIROCIN 2 % OINTMENT 1 APPLICATION TO LEFT KNEE WOUND EXTERNALLY THREE TIMES A DAY NOT-TAKING POTASSIUM CHLORIDE ER 10MEQ TABLET EXTENDED RELEASE 1 TABLET WITH FOOD ORALLY DAILY NOT-TAKING AUGMENTIN 875-125 MG TABLET 1 TABLET ORALLY EVERY 12 HRS NOT-TAKING DOXYCYCLINE HYCLATE 100 MG TABLET 1 TABLET ORALLY TWICE A DAY NOT-TAKING AUGMENTIN 500-125 MG TABLET DIRECTED ORALLY EVERY 12 HRS MEDICATION LIST REVIEWED AND RECONCILED WITH THE PATIENT PAST MEDICAL HISTORY 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 ANDRADE - [facility]. CAD - TRIPLE VESSEL - EF 30-35% NUCLEAR STRESS TEST - [facility] - 10/04/2010 - INFARCTION NOTED IN LATERAL AND INFEROLATERAL BELTRAN, MINIMAL PERIINFACT ISCHEMIA. PHARMACOLOGICAL SPECT - 11/21/2012 - EXTENSIVE INFERIOR AND INFEROLATERAL INFARCT, MINIMAL ISCHEMIA - LVEF 30%. CABG 2008 - [facility] - , TRAM TO LAD, SVG TO PDA, SEQ. 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 1 SON(S) , 2 DAUGHTER(S) - HEALTHY. NO FAMIILY HISTORY OF BLADDER, PROSTATE, KIDNEY CANCER. SOCIAL HISTORY GENERAL: TOBACCO USE ARE YOU A:FORMER SMOKER HOW LONG HAS IT BEEN SINCE YOU LAST SMOKED?1-5 YEARS LATEX QUESTIONNAIRE LATEX ALLERGY : HAVE YOU EVER DEVELOPED ANY TYPE OF REACTION AFTER HANDLING LATEX PRODUCTS SUCH RUBBER GLOVES, CONDOMS, DIAPHRAGMS, BALLOONS, SOCKS, OR UNDERWEAR?NO LATEX ALLERGY : HAVE YOU EVER DEVELOPED ANY TYPE OF REACTION DURING OR AFTER DENTAL APPOINTMENT, VAGINAL/RECTAL EXAMINATION, SURGICAL PROCEDURE, OR ANY OTHER EXPOSURE?NO LATEX RISK : HAVE YOU EVER HAD ANY DIFFICULTY BREATHING OR HIVES AFTER EATING OR HANDLING ANY FRUITS, OR VEGETABLES; SUCH KIWI, BANANAS, STONE FRUITS, OR CHESTNUTSNO LATEX RISK : DO YOU HAVE A PREVIOUS PERSONAL HISTORY OF MORE THAN NINE SURGERIES, SPINA BIFIDA, OR REPEATED CATHERTIZATIONS? NO LATEX RISK : ARE YOU FREQUENTLY EXPOSED TO LATEX PRODUCTS IN YOUR OCCUPATION?NO DATE ASKED : 10/08/2018 BMI CARE GOAL FOLLOW-UP ABOVE NORMAL BMI FOLLOW-UPDIETARY MANAGEMENT EDUCATION, GUIDANCE, AND COUNSELING ALCOHOL SCREENING POINTS: 0, INTERPRETATION: NEGATIVE. RECREATIONAL DRUG USE DENIES. CAFFEINE 2-5/DAY. SEXUAL HX HAD SEX IN THE LAST 12 MONTHS (VAGINAL, ORAL, OR ANAL)?: NO, HAVE YOU EVER HAD AN STD?: NO. HIV / HEP-C SCREENING HIV TEST OFFERED TO PATIENT:YES DATE OFFERED:04/17/2017 TEST ACCEPTED:NO REASON:PATIENT DECLINED SCIENTOLOGIST NO YARSANI BELIEFS THAT WOULD IMPACT HEALTH CARE. LANGUAGE PRYDEINIG. EDUCATION LEVEL OF EDUCATION:NOT FINISHED COLLEGE LEARNING BARRIERS / SPECIAL NEEDS CHANGE FROM LAST VISIT?NO BARRIERS TO LEARNING?NO HEARING IMPAIRED?NO VISION IMPAIRED?NO COGNITIVELY IMPAIRED?NO READINESS TO LEARN?YES LEARNING PREFERENCES?NO LEARNING CAPABILITIES PRESENT?YES EMOTIONAL BARRIERS?NO SPECIAL DEVICES?YES :WHEELCHAIR LITURGICAL MUSIC DIRECTOR NEEDED?NO DOMESTIC VIOLENCE NONE. OCCUPATION: DISABLED. DIET: LOW FAT, LOW CHOLESTEROL, CARBOHYDRATE CONTROLLED. EXERCISE: NO REGULAR EXERCISE. MARITAL STATUS: . OTHERS AT HOME: SPOUSE. PAIN CLINIC PFS, CLERGY, PUBLIC HEALTH REFERRALS HAS THE PATIENT BEEN EDUCATED REGARDING HIS/HER PLAN OF CARE?YES HAS THE PATIENT BEEN EDUCATED REGARDING PAIN, THE RISK FOR PAIN, THE IMPORTANCE OF EFFECTIVE PAIN MANAGEMENT, AND THE PAIN ASSESSMENT PROCESS?YES HOUSING: OWNS HOME. ADVANCE DIRECTIVE ADVANCE DIRECTIVE DISCUSSED WITH PATIENT:YES HCP - KAYCE GRAHAM () REVIEWED WITH PT 10/12/18 1210 BV. HOSPITALIZATION/MAJOR DIAGNOSTIC PROCEDURE SURGERY RELATED CHRONIC RENAL FAILURE MYOCARDIAL INFARCTION CELLULITIS [facility] - STROKE LEFT SIDE 10/2015 [facility]- TIA 11/2015 INFECTION 02/2016 [facility] - SEPSIS 03/08/2016 ADMITTED WITH LOW BLOOD SUGAR 12/2017 UTI AND LOW BLOOD SUGAR 05/2018 [facility] WOUND INFECTION 07/05/18 RIGHT FOOT WOUND 07/2018 REVIEW OF SYSTEMS REVIEWED BY: PROVIDER: LAUREN BENEDICT . CONSTITUTIONAL: ANY CHANGE IN YOUR MEDICAL CONDITION? NO . CHILLS NO . FEVER NO . INFECTION: DO YOU HAVE NEW INFECTIONS? NO . DO YOU HAVE HISTORY OF MRSA? NO . MUSCULOSKELETAL: ANY NEW PATTERNS OF PAIN OR NUMBNESS? NO . GASTROENTEROLOGY: ANY NEW CHANGE IN BOWEL CONTROL? NO . GENITOURINARY: ANY NEW CHANGE IN BLADDER CONTROL? YES, PT CURRENTLY HAS SALVADOR CATHETER. STATES HE IS GOING TO GET A SUPRAPUBIC CATHETER . IS THERE A CHANCE YOU COULD BE ? NO . HEMATOLOGY/LYMPH: DO YOU TAKE ANY BLOOD THINNERS? (FOR EXAMPLE- COUMADIN, PLAVIX, AGGRENOX, PLATEL, PRADAXA, OR XARELTO) NO . WHEN WAS YOUR LAST DOSE? DATE: TIME: . NEUROLOGY: HAVE YOU FALLEN IN THE PAST 12 MONTHS? NO . ANY NEW EXTREMITY NUMBNESS OR WEAKNESS? NO . CARDIOLOGY: DO YOU HAVE A PACEMAKER OR DEFIBRILLATOR? YES . RESPIRATORY: HAVE YOU BEEN SICK IN THE PAST WEEK? NO . FEVER NO . FLU LIKE SYMPTOMS? NO . COUGH NO . INTEGUMENTARY: DO YOU HAVE ANY RASHES OR OPEN SORES? YES TO RIGHT FOOT, PT IS SEEING WOUND CARE REGARDING THIS. . ALLERGIC/IMMUNO: ARE YOU ALLERGIC TO IV DYE? NO . ANY NEW ALLERGIES? NO . PSYCHIATRIC: DO YOU HAVE THOUGHTS OF HURTING YOURSELF OR SOMEONE ELSE? NO . ARE YOU ABUSED, NEGLECTED, OR IN AN UNSAFE ENVIRONMENT? NO . ENDOCRINOLOGY: ARE YOU DIABETIC? YES, ON MEDICATION . OTHER: DO YOU NEED ANY PRESCRIPTIONS? NO . IF YES, PLEASE LIST: ____ . ANY NEW PROBLEMS WITH YOUR MEDICATIONS? NO . WHEN DID YOU LAST EAT? ____ . WHEN DID YOU LAST DRINK? ____ . WHAT DID YOU LAST DRINK? ____ . NAME OF PERSON DRIVING YOU HOME? ____ . DO YOU HAVE ANY OTHER QUESTIONS OR CONCERNS NO . VITAL SIGNS WT 302 LBS, HT 70 IN, BMI 43.33 INDEX, BP 123/67 MM HG, HR 96 /MIN, RR 18 /MIN, TEMP 97.0 F, OXYGEN SAT % 96, NA INITIALS AW 1204, REVIEWED BY: BV. EXAMINATION GENERAL EXAMINATION: GENERAL APPEARANCE:AWAKE,ALERT ,PLEAASANT . PSYCHAFFECT NORMAL . LUNGS:LUNG RUIZ ARE CLEAR TO AUSCULTATION BILATERALLY. GOOD MOVEMENT OF AIR . HEART:S1, S2 IN A REGULAR RATE AND RHYTHM. NO SIGNIFICANT MURMURS, RUBS OR GALLOPS NOTED . ASSESSMENTS NEUROPATHY - G62.9 (PRIMARY) CHRONIC PRESCRIPTION OPIATE USE - Z79.891 TREATMENT NEUROPATHY CONTINUE LYRICA CAPSULE, 150 MG, 1 CAPSULE, ORALLY, Q12H MDD2 CONTINUE TIZANIDINE HCL TABLET, 4 MG, 1 TABLET NEEDED, ORALLY, THREE TIMES A DAY CONTINUE GABAPENTIN CAPSULE, 100 MG, 1 CAPSULE, ORALLY, THREE TIMES A DAY FOR CHRONIC SKIN ITCHING REFILL HYDROCODONE-ACETAMINOPHEN TABLET, 10-325 MG, 1 TABLET NEEDED, ORALLY, EVERY 6 HRS PRN. MDD:4, 30 DAY(S), 120, REFILLS 0 REFILL MS CONTIN TABLET EXTENDED RELEASE, 15 MG, 1 TABLET, ORALLY, Q8H MDD3, 30 DAY(S), 90, REFILLS 0 NOTES: ISTOP REGISTRY REVIEWED AND DEMONSTRATES COMPLLIANCE. (REF #[id number] ) BRINGS IN MEDICATIONS WHICH IS APPROPRIATE FOR WHAT WAS DISPENSED. RECENT URINE TOXICOLOGY REVIEWED. NO UNAUTHORIZED MEDICATIONS. NO ILLICIT SUBSTANCES AND PRESCRIBED MEDICATIONS WERE PRESENT. URINE TOX TODAY, RISKS AND BENEFITS OF NARCOTIC/OPIOD MEDICATIONS WERE REVIEWED WITH PATIENT - THIS INCLUDES BUT IS NOT LIMITED TO RISK OF DEPENDANCE/DEVELOPMENT OF ADDICTION, MOOD DISTURBANCE AND DEPRESSION, OSTEOPOROSIS, HORMONAL AND LABIDAL CHANGES, RESPIRATORY DEPRESSION AND . PATIENT IS ADVISED NOT TO DRIVE OR DRINK ALCOHOL WHILE ON THESE MEDICATIONS, [facility] NARCOTIC AGREEMENT WAS UPDATED/REVIEWED AND SIGNED TODAY BY THE PATIENT. SEE ATTACHED DOCUMENT FOR FULL DETAILS; SPECIFIC ISSUES WERE REVIEWED: 1) KEEP PAIN MEDS IN THEIR ORIGINAL BOTTLES AND ANY WEEKLY PLANNERS ARE TO BE BROUGHT TO THE PAIN CENTER AT EVERY VISIT. 2) THE PATIENT IS NOT TO INCREASE DOSING OR TIMING OF THEIR PAIN MEDICATION WITHOUT SPECIFIC DIRECTION OF THEIR PAIN CENTERPROVIDER (NOT ER OR OTHER PROVIDERS). 3) ALL PAIN MEDS ARE TO BE KEPT SECURED, IN A LOCKED BOX. 4) NO PAIN MEDS ARE TO BE SHARED WITH ANY OTHER PERSON FOR ANY REASON. 5) NO PAIN MEDS MAY BE TAKEN FROM ANY FRIENDS OR RELATIVES FOR ANY REASON 6) NO MEDS OR SUBSTANCES WHICH ARE NOT LEGAL ARE TO BE USED- NO MARIJUANA, NO COCAINE, AMPHETAMINES, HEROIN, OR OTHERS ARE EVER TO BE USED. 7)URINE TESTING IS DONE TO ACCOUNT FOR MEDS AND SUBSTANCES BEING TAKEN AND WILL BE DONE RANDOMLY. PROCEDURE CODES [id number] ESTABILISHED PATIENT [facility] CHARGE DISPOSITION & COMMUNICATION FOLLOW UP 3 MONTHS ELECTRONICALLY SIGNED BY JAK DAVIS ON 10/12/2018 AT 02:49 PM EST DISCLAIMER : THIS IS A VISIT SUMMARY EXTRACTED FROM THE [employer] CHART. IT IS NOT A COPY OF THE [employer] PROGRESS NOTE. HYUN
== END ==
LOC: M PAIN 11:45
PROVIDERS: ATTEND Nurse Practitioner Family
DX: G62.9 Polyneuropathy, unspecified (principal); G89.29 Other chronic pain; Z86.79 Personal history of other diseases of the circulatory system; I50.9 Heart failure, unspecified; E11.22 Type 2 diabetes mellitus with diabetic chronic kidney disease; I13.0 Hypertensive heart and chronic kidney disease with heart failure and stage 1 through stage 4 chronic kidney disease, or unspecified chronic kidney disease; D50.9 Iron deficiency anemia, unspecified; N18.4 Chronic kidney disease, stage 4 (severe); Z95.0 Presence of cardiac pacemaker; Z87.39 Personal history of other diseases of the musculoskeletal system and connective tissue; Z87.891 Personal history of nicotine dependence; R56.9 Unspecified convulsions; K21.9 Gastro-esophageal reflux disease without esophagitis; E66.01 Morbid (severe) obesity due to excess calories; Z68.41 Body mass index [BMI] 40.0-44.9, adult; Z88.5 Allergy status to narcotic agent; Z88.6 Allergy status to analgesic agent; Z91.09 Other allergy status, other than to drugs and biological substances; Z79.52 Long term (current) use of systemic steroids; Z79.82 Long term (current) use of aspirin; Z79.4 Long term (current) use of insulin; Z79.891 Long term (current) use of opiate analgesic; Z79.899 Other long term (current) drug therapy

== ENCOUNTER → 2019-01-11 | Outpatient (CLI) | payer MEDICARE, MEDICAID, OTHER ==
[~2019-01-11] MED LIST changes: -/ADVA50050 IN; -/ATOR40TA PO; -/PANT40TA; -/SALMDISK IN; +ADVA1AER2 IN; +ASPI-255 PO; -ASPI325T25 PO; -CINA30TA PO; +CINA30TA4 PO; +LIPI1TAB2 PO; -NORC10TA21 PO; +NORC1TAB5 PO; +PROT1TAB2; +SERE1AER IN; +TRIA0.1C60 TOP; -TRIA1CR TOP
--- NOTE | 2019-01-29 02:06 | ECWPNPC ---
PATIENT NAME: WILLIS GRAHAM : 1960 GENDER: MALE VISIT DATE: 01/11/2019 DISCHARGE DATE: 01/11/1954 VISIT LOCKED DATE TIME: PHYSICIAN: LAUREN SAN RESOURCE: LAUREN SAN REASON FOR APPOINTMENT 1. BACK/NECK HISTORY OF PRESENT ILLNESS HISTORY OF PRESENT ILLNESS: HERE FOR F/U OF CHRONIC LOW BACK PAIN AND BILATERAL LOWER EXTREMITY NEUROPATHY.SUFFERS FROM END STAGE MULTI SYSTEM FAILURE.RECENTLY OPTED NOT TO DO DIALYSIS OR UNDERGO HEART SURGERY .HAD AICD SHUT OFF BY CARDIOLOGY.SIGNED DNR.FINDS CURRENT CHRONIC PAIN MEDICATION MARGINALLY EFFECTIVE.RATING PAIN VAS 7/10. PAIN THE PATIENT DESCRIBES THE PAIN... FALL RISK SCREENING: SCREENING :NO FALLS REPORTED IN THE LAST YEAR CURRENT MEDICATIONS TAKING DOCUSATE SODIUM 100 MG CAPSULE 1 CAPSULE NEEDED ORALLY ONCE A DAY TAKING ULORIC 40 MG TABLET 3 TABS ORALLY ONCE A DAY TAKING MULTIVITAMINS OTC TABLET 1 TABLET ORALLY ONCE A DAY TAKING MAGNESIUM OXIDE 400 MG TABLET 1 TAB(S) ORALLY ONCE A DAY TAKING FERROUS SULFATE 325 (65 FE) MG TABLET DELAYED RELEASE 1 TABLET ORALLY BID TAKING ASPIRIN EC 325 MG TABLET DELAYED RELEASE 1 TABLET ORALLY ONCE A DAY TAKING COREG 3.125 MG TABLET 1 TABLET WITH FOOD ORALLY TWICE A DAY TAKING CALCITRIOL 0.25 MCG CAPSULE 2 CAPSULE ORALLY ONCE A DAY TAKING ACETAMINOPHEN EXTRA STRENGTH 500 MG TABLET 1 TABLET NEEDED ORALLY EVERY 6 HRS TAKING DULERA 200-5 MCG/ACT AEROSOL 2 PUFFS INHALATION TWICE A DAY TAKING DULOXETINE HCL 30 MG CAPSULE DELAYED RELEASE PARTICLES 1 CAPSULE ORALLY ONCE A DAY TAKING GLUCAGON EMERGENCY 1 MG KIT DIRECTED INJECTION USE FOR BLOOD SUGAR BELOW 40 AND CALL MD. DX: Z79.4 TAKING VICTOZA 18 MG/3ML SOLUTION PEN-INJECTOR 1.8 MG SUBCUTANEOUS DAILY TAKING HUMULIN R U-500 (CONCENTRATED) 500 UNIT/ML SOLUTION 70 IN AM 30 AT NOON, 80 PM, 30 AT HS SUBCUTANEOUS TAKING FLOMAX 0.4 MG CAPSULE 2 CAPSULE ORALLY BEFORE BEDTIME TAKING LYRICA 150 MG CAPSULE 1 CAPSULE ORALLY Q12H MDD2 TAKING FINASTERIDE 5 MG TABLET 1 TABLET ORALLY ONCE A DAY TAKING CILOSTAZOL 100MG TABLET 1 TABLET 30 MINUTES BEFORE OR 2 HOURS AFTER BREAKFAST AND DINNER ORALLY TWICE A DAY TAKING SENSIPAR 30MG TABLET 1 TABLET AFTER A MEAL WITH FOOD ORALLY MWF TAKING TIZANIDINE HCL 4 MG TABLET 1 TABLET NEEDED ORALLY FOR SPASMS AND PAIN THREE TIMES A DAY MDD3 TAKING MS CONTIN 15 MG TABLET EXTENDED RELEASE 1 TABLET ORALLY Q8H MDD3 TAKING HYDROCODONE-ACETAMINOPHEN 10-325 MG TABLET 1 TABLET NEEDED ORALLY EVERY 6 HRS PRN. MDD:4 TAKING ATORVASTATIN CALCIUM 80 MG TABLET 1 TABLET ORALLY ONCE A DAY TAKING PREDNISONE 5 MG TABLET 1 TABLET ORALLY ONCE A DAY TAKING SPIRONOLACTONE 25 MG TABLET 1 TAB ORALLY TWICE A DAY TAKING TORSEMIDE 100 MG TABLET 1 TABLETS ORALLY 1 TAB IN AM AND 1/2 TAB PM TAKING PEN NEEDLES 31G X 8 MM MISCELLANEOUS DIRECTED SUBCUTANEOUSLY ACHS. DX: Z79.4 TAKING NITROSTAT 0.4 MG TABLET SUBLINGUAL 1 TABLET UNDER THE TONGUE AND ALLOW TO DISSOLVE NEEDED SUBLINGUAL AT ONSET OF CHEST AND IN5 MIN IN NOT RESOLVED TAKING MIDODRINE HCL 2.5 MG TABLET 1 TABLET ORALLY THREE TIMES A DAY TAKING DEXILANT DR 60MG CAPSULE 1 CAP(S) ORALLY ONCE A DAY TAKING OXYBUTYNIN CHLORIDE ER 15MG TABLET EXTENDED RELEASE 24 HOUR 1 TAB(S) ORALLY DAILY TAKING GABAPENTIN 100 MG CAPSULE 1 CAPSULE ORALLY THREE TIMES A DAY FOR CHRONIC SKIN ITCHING TAKING ALBUTEROL SULFATE HFA 108 (90 BASE) MCG/ACT AEROSOL SOLUTION 2 PUFFS INHALATION EVERY 4 HRS NEEDED DX:496 TAKING WHEELCHAIR 1 MISCELLANEOUS DIRECTED FOR PARTS - NEEDS LEG RETAIL LINK ANALYST ATTACHMENTS TO POWER CHAIR HEIGHT 5'10'' WEIGHT 329 LBS, DX:Z74.09 TAKING SHOWER CHAIR WITHOUT WHEELS DIRECTED, NEEDS LARGE SHOWER CHAIR, BMI 47, WEIGHT 332 LBS, HEIGHT 70 INCHES DIRECTED DAILY USE (DX R26.89) TAKING LITO CONTOUR TEST 1 STRIP 1 TEST STRIP EXTERNALLY QID TESTING TAKING PEN NEEDLES 31G X 6 MM MISCELLANEOUS DIRECTED SUBCUTANEOUSLY DAILY WITH VICTOZA. DX: Z79.4 TAKING MAY HAVE - - BATTERY FOR WHEELCHAIR AND WHEELCHAIR REPAIR FOR CURRENT MOTORIZED CHAIR UPKEEP ONCE. DX: WHEELCHAIR BOUND, MULTIPLE SCLEROSIS TAKING MAY HAVE - - PLEASE DISPENSE ROHO CUSHION FOR WHEELCHAIR FOR USE WHEN SEATED DAILY TAKING MAY HAVE - - PLEASE DISPENSE NAYAN WRISE BRACE WITHOUT THUMB SPICA WEAR ON EACH WRIST NIGHTLY FOR CARPAL TUNNEL SYNDROME OF BOTH HANDS NOT-TAKING HUMALOG KWIKPEN 200 UNIT/ML SOLUTION PEN-INJECTOR DIRECTED SUBCUTANEOUS ACHS. DX: Z79.4. MDD 60 UNITS, NOTES: 60-124: NONE, 125-150: 2 UNITS, 151-200: 4 UNITS, 201-250: 6 UNITS, 251-300: 8 UNITS, 301-350: 10 UNITS, 400 AND ABOVE 12 UNITS AND CALL MD NOT-TAKING MUPIROCIN 2 % OINTMENT 1 APPLICATION TO LEFT KNEE WOUND EXTERNALLY THREE TIMES A DAY NOT-TAKING POTASSIUM CHLORIDE ER 10MEQ TABLET EXTENDED RELEASE 1 TABLET WITH FOOD ORALLY DAILY NOT-TAKING TRIAMCINOLONE ACETONIDE 0.1 % CREAM 1 APPLICATION EXTERNALLY TWICE A DAY TO RASH ON BACK, NOTES: APPLY FOR TWO WEEKS. IF RASH RE-OCCURS, REPEAT PROCESS. 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 ANDRADE - [facility]. CAD - TRIPLE VESSEL - EF 30-35% NUCLEAR STRESS TEST - [facility] - 10/04/2010 - INFARCTION NOTED IN LATERAL AND INFEROLATERAL BELTRAN, MINIMAL PERIINFACT ISCHEMIA. PHARMACOLOGICAL SPECT - 11/21/2012 - EXTENSIVE INFERIOR AND INFEROLATERAL INFARCT, MINIMAL ISCHEMIA - LVEF 30%. CABG 2008 - [facility] - TRAM GONZALES TO LAD, SVG TO PDA, SEQ. SVG TO OM1 AND OM2 ISCHEMIC CARDIOMYOPTHY SEIZURE/PSEUDOSEIZURE - FOLLOWED BY NEUROLOGY RETINAL OCCLUSION, LEFT EYE - [facility] ALLERGIES KETOROLAC TROMETHAMINE: HALLUCINATIONS - ALLERGY BUTRAN TRANSDERMAL PATCH: RASH - ALLERGY ADHESIVE BANDAGES: CONTACT DERMATITIS - ALLERGY SURGICAL HISTORY QUAD BYPASS 2009 HYDROCELE REPAIR X2 2011 AICD PACEMAKER (SHUT OFF 12/2018) NECK SURGERY HERNIA REPAIR X4 COLONOSCOPY 06/2016 LEFT FOREARM FISTULA 07/2017 LEFT ANTICUBITAL FISTULA 2018 CYSTOSCOPY 07/25/2018 FAMILY HISTORY FATHER: 78 YRS, CVA, PR, DIAGNOSED WITH HEART DISEASE, STROKE MOTHER: 52 YRS, CVA, STROKE SIBLINGS: 1 SISTER LIVER DISEASE, ANOTHER CELIAC DISEASE 2 HALF BROTHERS WITH DM 4 BROTHER(S) , 2 SISTER(S) . 1 SON(S) , 2 DAUGHTER(S) - HEALTHY. NO FAMIILY HISTORY OF BLADDER, PROSTATE, KIDNEY CANCER. SOCIAL HISTORY GENERAL: TOBACCO USE ARE YOU A:FORMER SMOKER HOW LONG HAS IT BEEN SINCE YOU LAST SMOKED?1-5 YEARS OTHERS AT HOME: SPOUSE. HOUSING: OWNS HOME. EDUCATION LEVEL OF EDUCATION:NOT FINISHED COLLEGE DIET: LOW FAT, LOW CHOLESTEROL, CARBOHYDRATE CONTROLLED. LANGUAGE URDU. DOMESTIC VIOLENCE NONE. BMI CARE GOAL FOLLOW-UP ABOVE NORMAL BMI FOLLOW-UPDIETARY MANAGEMENT EDUCATION, GUIDANCE, AND COUNSELING RECREATIONAL DRUG USE DENIES. EXERCISE: NO REGULAR EXERCISE. LEARNING BARRIERS / SPECIAL NEEDS CHANGE FROM LAST VISIT?NO BARRIERS TO LEARNING?NO HEARING IMPAIRED?NO VISION IMPAIRED?NO COGNITIVELY IMPAIRED?NO READINESS TO LEARN?YES LEARNING PREFERENCES?NO LEARNING CAPABILITIES PRESENT?YES EMOTIONAL BARRIERS?NO SPECIAL DEVICES?YES :WHEELCHAIR EVENT REPRESENTATIVE NEEDED?NO PAIN CLINIC PFS, CLERGY, PUBLIC HEALTH REFERRALS HAS THE PATIENT BEEN EDUCATED REGARDING HIS/HER PLAN OF CARE?YES HAS THE PATIENT BEEN EDUCATED REGARDING PAIN, THE RISK FOR PAIN, THE IMPORTANCE OF EFFECTIVE PAIN MANAGEMENT, AND THE PAIN ASSESSMENT PROCESS?YES LATEX QUESTIONNAIRE LATEX ALLERGY : HAVE YOU EVER DEVELOPED ANY TYPE OF REACTION AFTER HANDLING LATEX PRODUCTS SUCH RUBBER GLOVES, CONDOMS, DIAPHRAGMS, BALLOONS, SOCKS, OR UNDERWEAR?NO LATEX ALLERGY : HAVE YOU EVER DEVELOPED ANY TYPE OF REACTION DURING OR AFTER DENTAL APPOINTMENT, VAGINAL/RECTAL EXAMINATION, SURGICAL PROCEDURE, OR ANY OTHER EXPOSURE?NO LATEX RISK : HAVE YOU EVER HAD ANY DIFFICULTY BREATHING OR HIVES AFTER EATING OR HANDLING ANY FRUITS, OR VEGETABLES; SUCH KIWI, BANANAS, STONE FRUITS, OR CHESTNUTSNO LATEX RISK : DO YOU HAVE A PREVIOUS PERSONAL HISTORY OF MORE THAN NINE SURGERIES, SPINA BIFIDA, OR REPEATED CATHERTIZATIONS? YES - PLEASE INDICATE : REPEATED CATHETERIZATIONS LATEX RISK : ARE YOU FREQUENTLY EXPOSED TO LATEX PRODUCTS IN YOUR OCCUPATION?NO DATE ASKED : 11/08/2018 [place] 2-5/DAY. ADVANCE DIRECTIVE ADVANCE DIRECTIVE DISCUSSED WITH PATIENT:YES HCP - KAYCE GRAHAM () PT RECENTLY (11/2018) SIGNED A NON HOSPITAL DNR AND HAS HAD HIS AICD/PACEMAKER SHUT OFF BAPTISM NO MORMONISM BELIEFS THAT WOULD IMPACT HEALTH CARE. MARITAL STATUS: . ALCOHOL SCREENING POINTS: 0, INTERPRETATION: NEGATIVE. OCCUPATION: DISABLED. REVIEWED WITH PT 01/11/19 0922 LAS. HOSPITALIZATION/MAJOR DIAGNOSTIC PROCEDURE SURGERY RELATED CHRONIC RENAL FAILURE MYOCARDIAL INFARCTION CELLULITIS [facility] - STROKE LEFT SIDE 10/2015 [facility]- TIA 11/2015 INFECTION 02/2016 [facility] - SEPSIS 03/08/2016 ADMITTED WITH LOW BLOOD SUGAR 12/2017 UTI AND LOW BLOOD SUGAR 05/2018 [facility] WOUND INFECTION 07/05/18 RIGHT FOOT WOUND 07/2018 REVIEW OF SYSTEMS REVIEWED BY: PROVIDER: LAUREN BENEDICT . CONSTITUTIONAL: ANY CHANGE IN YOUR MEDICAL CONDITION? YES . CHILLS NO . FEVER NO . INFECTION: DO YOU HAVE NEW INFECTIONS? YES RIGHT FOOT, HAS HAD A DEBRIDEMENT . DO YOU HAVE HISTORY OF MRSA? YES . MUSCULOSKELETAL: ANY NEW PATTERNS OF PAIN OR NUMBNESS? NO . GASTROENTEROLOGY: ANY NEW CHANGE IN BOWEL CONTROL? YES PT REPORTS INCREASED CONSTIPATION . GENITOURINARY: ANY NEW CHANGE IN BLADDER CONTROL? NO . IS THERE A CHANCE YOU COULD BE ? NO . HEMATOLOGY/LYMPH: DO YOU TAKE ANY BLOOD THINNERS? (FOR EXAMPLE- COUMADIN, PLAVIX, AGGRENOX, PLATEL, PRADAXA, OR XARELTO) NO . WHEN WAS YOUR LAST DOSE? DATE: TIME: . NEUROLOGY: HAVE YOU FALLEN IN THE PAST 12 MONTHS? PT REPORTS FREQUENT STUMBLES/FALLS, UNABLE TO BEAR ANY WEIGHT ON HEELS, SO TRANSFERS ON [facility], HE FREQUENTLY LOSES HIS FOOTING AND STUMBLES. PT DENIES ANY INJURIES, NO ED VISITS. . ANY NEW EXTREMITY NUMBNESS OR WEAKNESS? YES PT REPORTS WORSENING NEUROPATHIES IN BOTH HANDS, USING WEIGHTED SILVERWARE BECAUSE HE CAN'T HOLD REGULAR SILVERWARE. . CARDIOLOGY: DO YOU HAVE A PACEMAKER OR DEFIBRILLATOR? YES, BUT IT HAS BEEN SHUT OFF, PT IS A DNR . RESPIRATORY: HAVE YOU BEEN SICK IN THE PAST WEEK? YES PT HAS HAD A COUGH FOR A COUPLE OF WEEKS, HE DENIES FEVER, THINKS IT IS DUE TO THE CHANGE OF SEASONS . FEVER NO . FLU LIKE SYMPTOMS? NO . COUGH NO . INTEGUMENTARY: DO YOU HAVE ANY RASHES OR OPEN SORES? YES OPEN SORES ON BOTH FEET, AND BOTTOM, FOLLOWED BY DR. RUVALCABA . ALLERGIC/IMMUNO: ARE YOU ALLERGIC TO IV DYE? NO . ANY NEW ALLERGIES? NO . PSYCHIATRIC: DO YOU HAVE THOUGHTS OF HURTING YOURSELF OR SOMEONE ELSE? NO . ARE YOU ABUSED, NEGLECTED, OR IN AN UNSAFE ENVIRONMENT? NO . ENDOCRINOLOGY: ARE YOU DIABETIC? YES . OTHER: DO YOU NEED ANY PRESCRIPTIONS? NO . IF YES, PLEASE LIST: ____ . ANY NEW PROBLEMS WITH YOUR MEDICATIONS? NO . WHEN DID YOU LAST EAT? ____ . WHEN DID YOU LAST DRINK? ____ . WHAT DID YOU LAST DRINK? ____ . NAME OF PERSON DRIVING YOU HOME? ____ . DO YOU HAVE ANY OTHER QUESTIONS OR CONCERNS NO . VITAL SIGNS WT 283 LBS, HT 70 IN, BMI 40.60 INDEX, BP 121/74 MM HG, HR 88 /MIN, RR 18 /MIN, TEMP 97.9 F, OXYGEN SAT % 97%, SAFE IN ENV? (Y/N) YES, NA INITIALS AW [id number], REVIEWED BY: LIONEL. EXAMINATION GENERAL EXAMINATION: GENERAL APPEARANCE:AWAKE,ALERT ,PLEAASANT . PSYCHAFFECT NORMAL . LUNGS:LUNG RUIZ ARE CLEAR TO AUSCULTATION BILATERALLY. GOOD MOVEMENT OF AIR . HEART:S1, S2 IN A REGULAR RATE AND RHYTHM. NO SIGNIFICANT MURMURS, RUBS OR GALLOPS NOTED . ASSESSMENTS NEUROPATHY - G62.9 (PRIMARY) TREATMENT NEUROPATHY CONTINUE LYRICA CAPSULE, 150 MG, 1 CAPSULE, ORALLY, Q12H MDD2 CONTINUE TIZANIDINE HCL TABLET, 4 MG, 1 TABLET NEEDED, ORALLY FOR SPASMS AND PAIN, THREE TIMES A DAY MDD3 INCREASE MS CONTIN TABLET EXTENDED RELEASE, 30 MG, 1 TABLET, ORALLY, Q12 H MDD2, 30 DAY(S), 60, REFILLS 0 START OXYCODONE HCL TABLET, 5 MG, 1 TABLET NEEDED, ORALLY, Q 4-6 H PRN PAIN MDD2 #60 SHOULD LAST 30 DAYS, 30 DAYS, 60, REFILLS 0 NOTES: ISTOP REGISTRY REVIEWED AND DEMONSTRATES COMPLLIANCE. BRINGS IN MEDICATIONS WHICH IS APPROPRIATE FOR WHAT WAS DISPENSED. RECENT URINE TOXICOLOGY REVIEWED. NO UNAUTHORIZED MEDICATIONS. NO ILLICIT SUBSTANCES AND PRESCRIBED MEDICATIONS WERE PRESENT. , RISKS AND BENEFITS OF NARCOTIC/OPIOD MEDICATIONS WERE REVIEWED WITH PATIENT - THIS INCLUDES BUT IS NOT LIMITED TO RISK OF DEPENDANCE/DEVELOPMENT OF ADDICTION, MOOD DISTURBANCE AND DEPRESSION, OSTEOPOROSIS, HORMONAL AND LABIDAL CHANGES, RESPIRATORY DEPRESSION AND . PATIENT IS ADVISED NOT TO DRIVE OR DRINK ALCOHOL WHILE ON THESE MEDICATIONS. PROCEDURE CODES [id number] ESTABILISHED PATIENT [facility] CHARGE DISPOSITION & COMMUNICATION FOLLOW UP 3 MONTHS (REASON: MED MGMNT) ELECTRONICALLY SIGNED BY JAK DAVIS ON 01/28/2019 AT 04:49 PM EDT DISCLAIMER : THIS IS A VISIT SUMMARY EXTRACTED FROM THE [employer] [employer] CHART. IT IS NOT A COPY OF THE [employer] PROGRESS NOTE. HYUN
== END ==
LOC: M PAIN 09:00
PROVIDERS: ATTEND Nurse Practitioner Family
DX: G62.9 Polyneuropathy, unspecified (principal); E11.22 Type 2 diabetes mellitus with diabetic chronic kidney disease; I50.42 Chronic combined systolic (congestive) and diastolic (congestive) heart failure; G40.909 Epilepsy, unspecified, not intractable, without status epilepticus; Z79.82 Long term (current) use of aspirin; Z79.4 Long term (current) use of insulin; Z79.891 Long term (current) use of opiate analgesic; Z79.899 Other long term (current) drug therapy; Z87.891 Personal history of nicotine dependence; Z88.8 Allergy status to other drugs, medicaments and biological substances; Z91.048 Other nonmedicinal substance allergy status

== ENCOUNTER → 2019-01-28 | Outpatient (REF) | payer MEDICARE, MEDICAID, OTHER ==
[~2019-01-28] MED LIST changes: -DULO1CAP2 PO; -DULO1CAP3 PO; +DULO1CAP5 PO; +DULO1CAP6 PO
[2019-01-28 16:29] LABS: IONIZED CALCIUM 4.3 MG/DL (4.5-5.3)
[2019-01-28 17:07] LABS: ALBUMIN 3.6 GM/DL (3.2-5.2); BILIRUBIN,TOTAL 0.7 MG/DL (0.2-1.0); CALCIUM LEVEL 8.4 MG/DL (8.8-10.2); CHOLESTEROL RISK RATIO 2.6 (<5); CREATININE FOR GFR 2.72 MG/DL (0.70-1.30); GLOMERULAR FILTRATION RATE 25.6 (>49); POTASSIUM SERUM 4.1 MEQ/L (3.5-5.1); TOTAL PROTEIN 7.1 GM/DL (6.4-8.2)
[2019-01-28 18:32] LABS: HEMOGLOBIN A1c 7.8 %
== END ==
LOC: M SFHCPLAZ 15:06
PROVIDERS: ATTEND Family Medicine
DX: N25.81 Secondary hyperparathyroidism of renal origin (principal); Z99.3 Dependence on wheelchair; R11.2 Nausea with vomiting, unspecified; E11.42 Type 2 diabetes mellitus with diabetic polyneuropathy; E78.2 Mixed hyperlipidemia
CPT/HCPCS: 36415; 80053; 80061; 82330; 83036; G0463